=== PATIENT | female | born 1960 | race Caucasian/White ===

== ENCOUNTER → 2020-04-18 09:15 | Outpatient (BNVA) | payer OTHER, SELFPAY | PROVIDERS: PCP Internal Medicine; Referring Provider Internal Medicine; Visit Provider Student in an Organized Health Care Education/Training Program | DX: Z76.89 Persons encountering health services in other specified circumstances (principal) ==

== ENCOUNTER 2020-06-08 11:13 | Day surgery (SDC) | payer OTHER, SELFPAY ==
--- NOTE | 2020-06-07 09:35 | P.CONAN_ITS ---
Documented by User: Rody Govea 06/07/20 09:36 HPI - Anesthesia Eval Consult details Narrative: 60yo F for Caudal Epidural Steroid Injection with catheter PMFSH Past Medical History Medical History ANURADHA positive Anxiety Arthritis Depression Fatty liver Hypertension On beta myae at home Primary osteoarthritis of hands, bilateral Sjogrens syndrome SS-A antibody positive Family History Family History (Updated 03/16/20 @ 10:27 by Dennise Chen Yani) Father No problems noted. Mother Hypertension Sister Breast cancer Blind Surgical History Surgical History History of surgery History of tubal ligation Hx of section Hx of colonoscopy Hx of esophagogastroduodenoscopy Social History Social History Smoking Status: Former smoker Use of substances other than those prescribed or required for medical reasons: No Advance Directives: Yes Advance Directives Information Provided: Yes Advance Directives on File: No Advance Directives Date on File: 06/08/20 Meds Allergies Allergy/AdvReac Type Severity Reaction Status Date / Time amoxicillin [AMOXICILLIN] Allergy Mild GENERALIZED Verified 06/08/20 11:24 SWELLING & ITCHY RASH, swelling, rash,diff. breathing morphine Allergy Unknown dizzy,sick Verified 06/08/20 11:24 Home Medications Medication Instructions Recorded Confirmed Type acetaminophen 650 mg PO Q8H PRN 03/19/20 06/04/20 History gabapentin 300 mg PO TID 03/19/20 06/04/20 History hydrochlorothiazide 25 mg PO DAILY 03/19/20 06/04/20 History lisinopril 20 mg PO DAILY 03/19/20 06/04/20 History omeprazole 20 mg PO DAILY 03/19/20 06/04/20 History trazodone 100 mg PO BEDTIME 03/19/20 06/04/20 History Exam Exam Date and Time: June 07, [id number] Assessment and Plan Assessment Anesthesia Assessment: Chart Reviewed Documented by User: Monique Rivas 06/08/20 11:42 [facility] Past Medical History Medical History ANURADHA positive Anxiety Arthritis Depression Fatty liver Hypertension On beta maye at home Primary osteoarthritis of hands, bilateral Sjogrens syndrome SS-A antibody positive Family History Family History (Updated 03/16/20 @ 10:27 by Dennise Chen Yani) Father No problems noted. Mother Hypertension Sister Breast cancer Blind Surgical History Surgical History History of surgery History of tubal ligation Hx of section Hx of colonoscopy Hx of esophagogastroduodenoscopy Social History Social History Smoking Status: Former smoker Use of substances other than those prescribed or required for medical reasons: No Advance Directives: Yes Advance Directives Information Provided: Yes Advance Directives on File: No Advance Directives Date on File: 06/08/20 Meds Allergies Allergy/AdvReac Type Severity Reaction Status Date / Time amoxicillin [AMOXICILLIN] Allergy Mild GENERALIZED Verified 06/08/20 11:24 SWELLING & ITCHY RASH, swelling, rash,diff. breathing morphine Allergy Unknown dizzy,sick Verified 06/08/20 11:24 Home Medications Medication Instructions Recorded Confirmed Type acetaminophen 650 mg PO Q8H PRN 03/19/20 06/04/20 History gabapentin 300 mg PO TID 03/19/20 06/04/20 History hydrochlorothiazide 25 mg PO DAILY 03/19/20 06/04/20 History lisinopril 20 mg PO DAILY 03/19/20 06/04/20 History omeprazole 20 mg PO DAILY 03/19/20 06/04/20 History trazodone 100 mg PO BEDTIME 03/19/20 06/04/20 History Exam Airway Mallampati Class: II TM Dist: >3cm Neck ROM: Full Loose/Missing/Broken Teeth: No Heart: RRR Lungs: CTA Assessment and Plan Assessment Anesthesia Assessment: Anesthesia Plan Discussed and Chart Reviewed Final Anesthetic Review NPO: Yes ASA Class: II Final Preanesthetic Review: Meds/Allgs Chart Reviewed, Consent Obtained/Reviewed and Anes Risks/Benef Reviewed Patient Risk: Low Procedure Risk: Intermediate Anesthetic Plan Anesthetic Plan: MAC: Disposition: Standard PACU
--- NOTE | ~2020-06-08 | FL_ITS ---
EXAMINATION: XR FLUOROSCOPY WITH IMAGES CLINICAL INFORMATION: Caudal epidural steroid injection COMPARISON: None. TECHNIQUE: Fluoroscopy performed by Dr. Glen Paige. Fluoroscopy time: 0.4 minutes DAP: 25 mGycm2 Images: 3 FINDINGS: Images demonstrate needle placement in the spinal canal of the mid sacrum and epidural contrast injection. FL/FL guidance in OR IMPRESSION: Fluoroscopy guidance for caudal epidural steroid injection.
[2020-06-08 11:33] VITALS: BMI 37.8
[2020-06-08 11:48] VITALS: BP 113/67; PULSE 66; RESP 16; TEMP 36.5; O2SAT 98
[2020-06-08] MEDS: Lactated Ringers 1,000 ML 100 ML IVCONT (11:50)
--- NOTE | 2020-06-08 11:50 | MHC.SHP ---
Pre-Procedural Eval Section A The patient is an INPATIENT: No The History & Physical has been completed within 30 days and I have reviewed it.: No Section B Chief Complaint: lumbar post laminectomy syndrome Details of Present Illness: same as above Relevant Family History (Specify if Yes): No Relevant Social History: None Present Medications: None Medical History: No relevant PMH History of Previous Operations: Relevant previous surgery/procedure and date(s) Allergies: Allergies Allergy/AdvReac Type Severity Reaction Status Date / Time amoxicillin [AMOXICILLIN] Allergy Mild GENERALIZED Verified 06/08/20 11:24 SWELLING & ITCHY RASH, swelling, rash,diff. breathing morphine Allergy Unknown dizzy,sick Verified 06/08/20 11:24 Review of Systems Sugical H&P ROS: Negative: Constitution, Cardiovascular, Respiratory, Neurological, Psychiatric, Hem-Onc, Allergic/Immunologic, Gastrointestinal, Genitourinary, Musculoskeletal, Integumentary, Endocrine and Eyes/Ears/Nose/Throat Exam Surgical H&P Exam: Normal: HEENT, Normal: Heart, Normal: Lungs, Normal: Extremities, Normal: Abdomen, Normal: Skin and Normal: Neurological Plan Diagnosis/Plan: Unchanged I have reviewed the history and physical and performed a pertinent physical examination on my patient. No changes have occurred unless specified.
[2020-06-08 12:56] VITALS: BP 85/46; PULSE 74; RESP 16; TEMP 36.7; O2SAT 96
[2020-06-08 13:11] VITALS: BP 115/71; PULSE 62; RESP 17; TEMP 36.7; O2SAT 98
--- NOTE | 2020-06-08 15:06 | W.PM.OPN ---
Operative Note Operative Note Date of Service: 06/08/20 Narrative: Informed consent was explained to the patient. All questions were explained and answered. The patient was taken inside of the operating room where she was positioned prone on the operating table. Time-out was performed delineating patient's name and date of , correct site, side, the nature of the procedure, patient's allergy, preoperative antibiotic if needed. All operating room staff AND THE PATIENT was participating in OR time-out procedure. Her lower back , UPPER BUTTOCKS and intergluteal crease were prepped with ChloraPrep and draped with sterile towels. Sterilely draped C-arm was brought over the operating field and the picture of the sacral bone and the coccygeal spine superimposing on symphysis pubis in strict midline fashion was demonstrated on the screen. After that the position of the C-arm was changed into lateral. The skin wheal was raised in the projection of the lowest point of the sacral bone strictly on midline. 18 gauge 10 cm Touhy needle was inserted through the skin wheal and advanced to the caudal canal in anterior posterior and lateral views. When needle entered the caudal canal injection of the contrast was performed demonstrating epidural spread of the contrast. After that epidural catheter was advanced through the needle until the resistance was felt. The injections of the contrast into the epidural catheter demonstrated spread of the contrast in the projection of bilateral L5 foramina. After that 27 cc of normal saline was injected into the catheter, following that 5 cc of preservative-free lidocaine 1% mixed with Kenalog was injected into the catheter. The catheter was removed with the needle on mass. Sterile dressing with bacitracin ointment was applied to the needle stick. The patient tolerated procedure well. The patient was taking outside of the operating room to the recovery room. The patient recovered uneventfully. The patient went home without immediate complications.
== END 2020-06-08 13:35 | disposition home or self-care (01) ==
PROVIDERS: PCP Internal Medicine; Visit Provider Anesthesiology
PROC: 3E0R33Z Introduction of Anti-inflammatory into Spinal Canal, Percutaneous Approach (ICD-10-PCS; CPT 62323; principal; 2020-06-08 13:00)
DX: M96.1 Postlaminectomy syndrome, not elsewhere classified (principal); M54.16 Radiculopathy, lumbar region; M35.00 Sjogren syndrome, unspecified; M19.042 Primary osteoarthritis, left hand; M19.041 Primary osteoarthritis, right hand; I10 Essential (primary) hypertension; R76.8 Other specified abnormal immunological findings in serum; Z79.899 Other long term (current) drug therapy; Z88.1 Allergy status to other antibiotic agents; Z88.8 Allergy status to other drugs, medicaments and biological substances; Z87.891 Personal history of nicotine dependence
CPT/HCPCS: 62323; J2250; J2370; J3010; J3300; Q9967

== ENCOUNTER → 2020-08-16 10:31 | Outpatient (BNVA) | payer OTHER, SELFPAY | PROVIDERS: PCP Internal Medicine; Visit Provider Anesthesiology | DX: M96.1 Postlaminectomy syndrome, not elsewhere classified (principal); G89.4 Chronic pain syndrome; Z79.899 Other long term (current) drug therapy | CPT/HCPCS: 99212 ==

== ENCOUNTER 2020-08-24 08:29 | Outpatient (REF) | payer OTHER, SELFPAY ==
[2020-08-24 10:18] LABS: MANUAL DIFF FLAG NO
[2020-08-24 10:40] LABS: Basophils Percent Auto 0.4 % (0-2); Eosinophils Absolute Auto 0.2 X10*3/uL (0.0-0.4); Eosinophils Percent Auto 4.6 % (0-4); Hematocrit 37.8 % (37-47); Hemoglobin 12.2 g/dl (12.0-16.0); Lymphocytes Absolute Auto 1.3 X10*3/uL (1.2-4.9); Lymphocytes Percent Auto 26.5 % (20-40); Mean Corpuscular HGB Conc 32.3 g/dl (31.0-35.0); Mean Corpuscular Hemoglobin 28.4 pg (27.0-33.0); Mean Corpuscular Volume 88.1 fL (80-98); Mean Platelet Volume 11.4 fL (9.4-12.3); Monocytes Absolute Auto 0.5 X10*3/uL (0.1-1.2); Monocytes Percent Auto 9.4 % (2-11); Neutrophils Percent Auto 59.1 % (45-73); Platelet Count 246 X10*3/uL (160-400); Red Blood Count 4.29 X10*6/uL (4.20-5.50); Red Cell Distribution Width 13.6 % (11.0-16.0)
[2020-08-24 11:00] LABS: Alanine Aminotransferase 15 U/L (0-31); Albumin Level 4.2 g/dL (3.5-5.0); Alkaline Phosphatase 62 U/L (39-117); Anion Gap 12 (12-20); Aspartate Amino Transferase 20 U/L (5-31); Bilirubin Total 0.7 mg/dL (0.0-1.0); Blood Urea Nitrogen 25 mg/dL (9-16); Calcium 9.9 mg/dL (8.4-10.2); Carbon Dioxide 28 mmol/L (22-29); Chloride 106 mmol/L (96-108); Cholesterol 182 mg/dL; Estimated Glomerular Filt Rate > 60; Glucose Fasting 97 mg/dL (60-99); HDL Cholesterol 56 mg/dL; LDL Cholesterol Calculated 115 mg/dl; Sodium 141 mmol/L (135-145); Total Protein 7.5 g/dL (6.5-8.0); Triglycerides 55 mg/dL
[2020-08-24 11:37] LABS: Vitamin B12 986 pg/mL (200-900)
[2020-08-29 20:57] LABS: Vitamin D 25-OH, D2 <4 ng/mL; Vitamin D 25-OH, D3 23 ng/mL; Vitamin D 25-OH, Total 23 ng/mL (30-100)
== END 2020-08-24 08:30 | disposition home or self-care (01) ==
LOC: HO.LAB 08:29
PROVIDERS: PCP Internal Medicine; Visit Provider Internal Medicine
DX: D64.9 Anemia, unspecified (principal); R42 Dizziness and giddiness; E55.9 Vitamin D deficiency, unspecified; R53.82 Chronic fatigue, unspecified; I10 Essential (primary) hypertension; E78.5 Hyperlipidemia, unspecified
CPT/HCPCS: 36415; 80053; 80061; 82306; 82607; 82746; 85025

== ENCOUNTER 2020-09-18 06:57 | Outpatient (REF) | payer OTHER, SELFPAY ==
--- NOTE | ~2020-09-18 | XR_ITS ---
EXAMINATION: XR LUMBOSACRAL SPINE WITH OBLIQUES CLINICAL INFORMATION: Spondylosis, lumbar region. COMPARISON: 09/21/2019 TECHNIQUE: AP, both oblique, and lateral views of the lumbar spine. Lateral view of the lumbosacral junction. Lateral flexion-extension views. FINDINGS: There are 5 nonrib-bearing lumbar vertebra. There is mild scoliosis convex left which may be positional in nature. No acute fractures identified. No spondylolysis is seen. There is facet arthropathy present on the right at the L3 through S1 levels and on the left at the L4 through S1 levels. Pedicles are intact. There is narrowing of the L5-S1 disc space with marginal sclerosis. There is a mild grade 1 spondylolisthesis L4-L5. No instability on flexion-extension views is evident. No fusion or widening of the sacroiliac joints is evident. XR/XR lumbar spine 6V w bending IMPRESSION: No acute lumbar spine fracture. No evidence of spondylolysis. Degenerative disc narrowing L5-S1. Mild grade 1 spondylolisthesis L4-L5. Multilevel facet arthropathy.
--- NOTE | ~2020-09-18 | FL_ITS ---
EXAMINATION: XR FLUOROSCOPY WITH IMAGES CLINICAL INFORMATION: Post laminectomy syndrome. COMPARISON: 06/08/2020 TECHNIQUE: Fluoroscopy performed by Dr. Glen Paige Fluoroscopy time: 0.2 minutes DAP: 4.67 Gycm2 Images: 1 FINDINGS: A single lateral film of the sacrum is provided with needle overlying the coccyx. FL/FL guidance in treatment room IMPRESSION: Pain management for post laminectomy syndrome.
== END 2020-09-18 06:58 | disposition home or self-care (01) ==
LOC: HO.RADIR 06:57
PROVIDERS: Visit Provider Anesthesiology
DX: M96.1 Postlaminectomy syndrome, not elsewhere classified (principal); M43.06 Spondylolysis, lumbar region; G89.4 Chronic pain syndrome; Z79.899 Other long term (current) drug therapy
CPT/HCPCS: 62323; 72114; J3300; Q9967

== ENCOUNTER → 2020-10-22 15:43 | Outpatient (BNVA) | payer OTHER, SELFPAY | PROVIDERS: PCP Internal Medicine; Visit Provider Anesthesiology ==

== ENCOUNTER 2020-12-20 09:34 | Outpatient (REF) | payer OTHER, SELFPAY ==
[2020-12-20 10:13] LABS: MANUAL DIFF FLAG NO
[2020-12-20 10:25] LABS: Basophils Percent Auto 0.4 % (0-2); Eosinophils Absolute Auto 0.2 X10*3/uL (0.0-0.4); Eosinophils Percent Auto 4.1 % (0-4); Hematocrit 38.5 % (37-47); Hemoglobin 12.7 g/dl (12.0-16.0); Imm Gran Abs Auto 0.01 X10*3/uL (0.00-0.03); Imm Gran Pct Auto 0.2 % (0.0-0.4); Lymphocytes Absolute Auto 1.4 X10*3/uL (1.2-4.9); Lymphocytes Percent Auto 26.1 % (20-40); Mean Corpuscular Hemoglobin 28.3 pg (27.0-33.0); Mean Corpuscular Volume 85.7 fL (80-98); Mean Platelet Volume 12.1 fL (9.4-12.3); Monocytes Absolute Auto 0.4 X10*3/uL (0.1-1.2); Monocytes Percent Auto 8.2 % (2-11); Neutrophils Absolute Auto 3.3 X10*3/uL (2.0-8.3); Platelet Count 216 X10*3/uL (160-400); Red Blood Count 4.49 X10*6/uL (4.20-5.50); Red Cell Distribution Width 13.2 % (11.0-16.0); White Blood Count 5.4 X10*3/uL (4.8-10.8)
[2020-12-20 11:22] LABS: Alanine Aminotransferase 16 U/L (0-31); Albumin Level 4.2 g/dL (3.5-5.0); Alkaline Phosphatase 62 U/L (39-117); Anion Gap 12 (12-20); Aspartate Amino Transferase 21 U/L (5-31); Bilirubin Total 0.5 mg/dL (0.0-1.0); Blood Urea Nitrogen 23 mg/dL (9-16); Calcium 9.7 mg/dL (8.4-10.2); Carbon Dioxide 26 mmol/L (22-29); Chloride 106 mmol/L (96-108); Cholesterol 181 mg/dL; Estimated Glomerular Filt Rate > 60; Glucose Fasting 96 mg/dL (60-99); HDL Cholesterol 51 mg/dL; LDL Cholesterol Calculated 120 mg/dl; Potassium 4.4 mmol/L (3.3-5.1); Sodium 140 mmol/L (135-145); Total Protein 7.5 g/dL (6.5-8.0); Triglycerides 54 mg/dL
[2020-12-20 11:31] LABS: Thyroid Stimulating Hormone 0.58 uIU/mL (0.32-4.0)
[2020-12-21 13:51] LABS: Antibody to SS-A Antigen >8.0 POS AI (<1.0 NEG); Antibody to SS-B Antigen <1.0 NEG AI (<1.0 NEG); Scleroderma 70 Antibody <1.0 NEG AI (<1.0 NEG)
[2020-12-21 13:55] LABS: Anti-Centromere B Antibodies 2.8 POS AI (<1.0 NEG)
[2020-12-28 12:55] LABS: Vitamin D 25-OH, D2 <4 ng/mL; Vitamin D 25-OH, D3 28 ng/mL; Vitamin D 25-OH, Total 28 ng/mL (30-100)
== END 2020-12-20 09:35 | disposition home or self-care (01) ==
LOC: HO.LAB 09:34
PROVIDERS: PCP Internal Medicine; Visit Provider Internal Medicine
DX: E55.9 Vitamin D deficiency, unspecified (principal); E66.01 Morbid (severe) obesity due to excess calories; M35.00 Sjogren syndrome, unspecified; E78.5 Hyperlipidemia, unspecified; I10 Essential (primary) hypertension; D64.9 Anemia, unspecified
CPT/HCPCS: 36415; 80053; 80061; 82306; 84443; 85025; 86038; 86235

== ENCOUNTER → 2020-12-28 10:20 | Outpatient (BNVA) | payer OTHER, SELFPAY | PROVIDERS: PCP Internal Medicine; Visit Provider Student in an Organized Health Care Education/Training Program | DX: R76.8 Other specified abnormal immunological findings in serum (principal); M19.042 Primary osteoarthritis, left hand; M19.041 Primary osteoarthritis, right hand; Z87.891 Personal history of nicotine dependence | CPT/HCPCS: 99212 ==

== ENCOUNTER → 2021-01-16 08:51 | Outpatient (BNVA) | payer OTHER, SELFPAY | PROVIDERS: PCP Internal Medicine; Referring Provider Internal Medicine; Visit Provider Physician Assistant Surgical ==

== ENCOUNTER → 2021-01-18 08:16 | Outpatient (BNVA) | payer OTHER, SELFPAY | PROVIDERS: PCP Internal Medicine; Visit Provider Surgery ==

== ENCOUNTER → 2021-02-06 08:29 | Outpatient (REF) | payer OTHER, SELFPAY ==
--- NOTE | ~2021-02-06 | XR_ITS ---
EXAMINATION: XR CHEST CLINICAL INFORMATION: Obesity COMPARISON: Chest x-ray October 26, 2017 TECHNIQUE: 2 views of the chest were obtained. FINDINGS: Cardiac silhouette is normal in size. The lungs are well aerated. There is no lobar consolidation. No pleural effusion or pneumothorax. No acute osseous abnormality. XR/XR chest 2V IMPRESSION: No acute pulmonary pathology.
--- NOTE | 2021-02-06 09:11 | ECG_ITS ---
Test Reason : obesity Blood Pressure : / mmHG Vent. Rate : 062 BPM Atrial Rate : 062 BPM P-R Int : 158 ms QRS Dur : 094 ms QT Int : 406 ms P-R-T Axes : 045 016 003 degrees QTc Int : 412 ms Normal sinus rhythm Normal ECG When compared with ECG of 26-OCT-2017 12:47, No significant change was found Referred By: Thuan Minor Electronically Signed By:DAMIEN AVILES
[2021-02-07 11:58] LABS: H Pylori Breath Test Positive (Negative)
== END ==
LOC: HO.CARD 08:29
PROVIDERS: Absent Provider Surgery; PCP Internal Medicine; Referring Provider Internal Medicine; Visit Provider Physician Assistant
DX: Z01.818 Encounter for other preprocedural examination (principal); E66.9 Obesity, unspecified; Z68.38 Body mass index [BMI] 38.0-38.9, adult; I10 Essential (primary) hypertension
CPT/HCPCS: 36415; 71046; 83013; 93005; 99211

== ENCOUNTER → 2021-02-12 08:05 | Outpatient (BNVA) | payer OTHER, SELFPAY | PROVIDERS: PCP Internal Medicine; Visit Provider Dietitian, Registered | DX: E66.9 Obesity, unspecified (principal) | CPT/HCPCS: 97802 ==

== ENCOUNTER → 2021-02-20 08:04 | Outpatient (BNVA) | payer OTHER, SELFPAY | PROVIDERS: PCP Internal Medicine; Visit Provider Surgery ==

== ENCOUNTER 2021-02-25 08:27 | Outpatient (REF) | payer OTHER, SELFPAY ==
--- NOTE | ~2021-02-25 | US_ITS ---
EXAMINATION: US COMPLETE ABDOMEN WITH LIVER ELASTOGRAPHY CLINICAL INFORMATION: Obesity unspecified. COMPARISON: Abdominal ultrasound done on 12/14/2012. TECHNIQUE: Real-time imaging of the abdominal viscera. Noninvasive ultrasound liver fibrosis assessment is performed using Catalina ElastPQ point quantification shear wave elastography (pSWE) with a C5-2 MHz transducer. Multiple elastography samples are obtained. FINDINGS: PANCREAS: The visualized pancreatic head and body are normal in appearance. The remainder of the pancreas is obscured from visualization by the overlying bowel gas. ABDOMINAL AORTA: The proximal, middle, and distal aortic segments are normal in caliber. INFERIOR VENA CAVA: Visualized portions are normal. LIVER: Mild diffuse increased echotexture is present throughout the entire liver, consistent disease.. No focal lesion or intrahepatic biliary duct dilatation. The right lobe measures 14.4 cm in length. The left lobe measures 9.5 cm in length. Portal flow is towards the liver (hepatopetal). Shear wave liver elastography median stiffness is 1.88 m/s (reference: normal median stiffness is 1.3 m/s or less). IQR/median stiffness to assess sampling precision is 0.22 (reference: good quality data set is IQR/median stiffness of 0.15 or less). GALLBLADDER: Normal. The gallbladder is physiologically distended without evidence of stones, sludge, polyps, wall thickening or pericholecystic fluid. COMMON BILE DUCT: Normal in caliber measuring 0.4 cm in diameter. RIGHT KIDNEY: Normal. No hydronephrosis. No renal calculi or focal parenchymal lesions. The kidney measures 10.3 cm in maximum dimension. LEFT KIDNEY: There is a 1.46 x 1.4 x 1.4 cm simple appearing cortical renal cyst present at the mid lateral cortex. The smaller approximately 1 cm similar-appearing cortical cyst noted at the superior pole.. No hydronephrosis. No renal calculi or focal parenchymal lesions. The kidney measures 10.4 cm in maximum dimension. SPLEEN: Normal. The spleen measures 8.3 cm in maximum dimension. FREE FLUID: None. US/US abdomen comp w elastography IMPRESSION: 1. The liver shows mild diffuse heterogeneous abnormal increased echotexture, consistent with diffuse liver disease without any superimposed focal liver lesion. 2. Liver elastography: Measurements are suggestive of compensated advanced chronic liver disease but need further test for confirmation. REFERENCE: Society of Radiologists in Ultrasound Liver Stiffness Thresholds (2020): LIVER STIFFNESS THRESHOLDS: *Liver Stiffness equal or less than 1.3 m/s: High probability of being normal. *Liver Stiffness less than 1.7 m/s: In the absence of other known clinical signs, rules out compensated advanced chronic liver disease. *Liver Stiffness 1.7-2.1 m/s: Suggestive of compensated advanced chronic liver disease but need further test for confirmation. *Liver Stiffness over 2.1 m/s: Rules in compensated advanced chronic liver disease. *Liver Stiffness over 2.4 m/s: Suggestive of clinically significant portal hypertension. QUALITY OF DATA SET: *IQR/Median value equal or less than 0.15 implies a quality data set. *IQR/Median value over 0.15 implies a poor quality data set. SIGNIFICANT CHANGE FROM PRIOR EXAM: Significant change if liver stiffness measurement is 10% or greater from prior exam. OTHER CONSIDERATIONS: The stage of liver fibrosis may be overestimated in the setting of acute hepatitis, liver inflammation, elevated liver function tests, hepatic vascular congestion, obstructive cholestasis, non-fasting state, and infiltrative diseases such as amyloidosis and lymphoma. In some patients with NAFLD, the liver stiffness thresholds for compensated advanced chronic liver disease may be lower. In causes other than viral hepatitis and NAFLD, liver stiffness thresholds are not well established.
--- NOTE | ~2021-02-25 | FL_ITS ---
EXAMINATION: XR GI SERIES CLINICAL INFORMATION: Obesity. COMPARISON: None. TECHNIQUE: Routine upper GI air-contrast study was performed. FINDINGS: Following oral administration of thick barium and effervescent granules, there is normal propagation of bolus from the oral cavity through the pharynx and esophagus and into the stomach without any evidence of obstruction, narrowing or stricture. On placing patient supine and prone lying, the course, caliber and peristalsis of the stomach, duodenal bulb and the sweep are normal. The mucosal pattern of the stomach and the duodenum is normal. There is mild gastroesophageal reflux without hiatal hernia. FLUOROSCOPY TIME: 1.4 minutes. DOSE AREA PRODUCT: 19.589 uGy-m2 (microgray-meter squared). FL/FL upper GI series IMPRESSION: Mild gastroesophageal reflux without hiatal hernia. The rest of the upper GI exam is unremarkable.
[2021-02-25 08:47] LABS: MANUAL DIFF FLAG NO
[2021-02-25 09:17] LABS: Basophils Percent Auto 0.4 % (0-2); Eosinophils Absolute Auto 0.3 X10*3/uL (0.0-0.4); Eosinophils Percent Auto 5.7 % (0-4); Hematocrit 36.6 % (37-47); Hemoglobin 12.2 g/dl (12.0-16.0); Imm Gran Abs Auto 0.01 X10*3/uL (0.00-0.03); Imm Gran Pct Auto 0.2 % (0.0-0.4); Lymphocytes Absolute Auto 1.1 X10*3/uL (1.2-4.9); Lymphocytes Percent Auto 21.6 % (20-40); Mean Corpuscular HGB Conc 33.3 g/dl (31.0-35.0); Mean Corpuscular Hemoglobin 28.2 pg (27.0-33.0); Mean Corpuscular Volume 84.7 fL (80-98); Mean Platelet Volume 11.5 fL (9.4-12.3); Monocytes Absolute Auto 0.6 X10*3/uL (0.1-1.2); Monocytes Percent Auto 11.7 % (2-11); Neutrophils Absolute Auto 3.2 X10*3/uL (2.0-8.3); Neutrophils Percent Auto 60.4 % (45-73); Platelet Count 229 X10*3/uL (160-400); Red Blood Count 4.32 X10*6/uL (4.20-5.50); Red Cell Distribution Width 13.1 % (11.0-16.0); White Blood Count 5.3 X10*3/uL (4.8-10.8)
[2021-02-25 09:28] LABS: Estimated Average Glucose 105 mg/dL; Hemoglobin A1C 113.4814 umol/L; Hemoglobin A1c % 5.3 %
[2021-02-25 09:35] LABS: Alanine Aminotransferase 15 U/L (0-31); Albumin Level 4.2 g/dL (3.5-5.0); Alkaline Phosphatase 55 U/L (39-117); Anion Gap 12 (12-20); Aspartate Amino Transferase 22 U/L (5-31); Bilirubin Total 0.5 mg/dL (0.0-1.0); Blood Urea Nitrogen 43 mg/dL (9-16); C Reactive Protein 0.59 mg/dL (< or = 0.50); Calcium 10.1 mg/dL (8.4-10.2); Carbon Dioxide 29 mmol/L (22-29); Chloride 104 mmol/L (96-108); Cholesterol 159 mg/dL; Estimated Glomerular Filt Rate 31; Glucose Random 126 mg/dL (60-115); HDL Cholesterol 39 mg/dL; Iron 47 mcg/dL (30-160); LDL Cholesterol Calculated 109 mg/dl; Percent Iron Saturation 12 % (15-50); Potassium 3.7 mmol/L (3.3-5.1); Sodium 141 mmol/L (135-145); Total Iron Binding Capacity 381 mcg/dL (228-428); Total Protein 7.4 g/dL (6.5-8.0); Triglycerides 58 mg/dL; Unsaturated Iron Binding 334 ug/dL
[2021-02-25 09:57] LABS: Ferritin 51 ng/mL (10-250)
[2021-02-25 10:16] LABS: Folate 12.2 ng/mL (> or = 4.0); Vitamin B12 943 pg/mL (200-900)
[2021-02-26 14:31] LABS: Calcium (PTHI) 9.9 mg/dL (8.6-10.4); PTHI 99 pg/mL (14-64)
[2021-02-28 07:32] LABS: Zinc 73 mcg/dL (60-130)
[2021-03-01 17:33] LABS: Vitamin A 44 mcg/dL (38-98)
[2021-03-02 11:10] LABS: Vitamin B1 12 nmol/L (8-30)
== END 2021-02-25 08:28 | disposition home or self-care (01) ==
LOC: HO.US 08:27
PROVIDERS: PCP Internal Medicine; Visit Provider Surgery
DX: E66.9 Obesity, unspecified (principal); I10 Essential (primary) hypertension; Z68.38 Body mass index [BMI] 38.0-38.9, adult
CPT/HCPCS: 36415; 74240; 76705; 76981; 80053; 80061; 82306; 82607; 82728; 82746; 83036; 83540; 83970; 84425; 84443; 84590; 84630; 85025; 86140

== ENCOUNTER 2021-03-01 08:31 | Outpatient (REF) | payer OTHER, SELFPAY ==
[2021-03-01 09:12] LABS: Anion Gap 11 (12-20); Blood Urea Nitrogen 32 mg/dL (9-16); Calcium 9.6 mg/dL (8.4-10.2); Carbon Dioxide 30 mmol/L (22-29); Chloride 106 mmol/L (96-108); Estimated Glomerular Filt Rate 52; Glucose Random 117 mg/dL (60-115); Potassium 3.6 mmol/L (3.3-5.1); Sodium 143 mmol/L (135-145)
[2021-03-01 10:04] LABS: Insulin 9 uU/mL (2-29)
== END 2021-03-01 08:32 | disposition home or self-care (01) ==
LOC: HO.LAB 08:31
PROVIDERS: PCP Internal Medicine; Visit Provider Surgery
DX: R79.89 Other specified abnormal findings of blood chemistry (principal)
CPT/HCPCS: 36415; 80048; 83525

== ENCOUNTER → 2021-03-14 08:00 | Outpatient (BNVA) | payer OTHER, SELFPAY | PROVIDERS: PCP Internal Medicine; Referring Provider Surgery; Visit Provider Dietitian, Registered ==

== ENCOUNTER → 2021-03-22 08:08 | Outpatient (BNVA) | payer OTHER, SELFPAY | PROVIDERS: PCP Internal Medicine; Visit Provider Surgery ==

== ENCOUNTER → 2021-03-26 09:06 | Outpatient (BNVA) | payer OTHER, SELFPAY | PROVIDERS: PCP Internal Medicine; Visit Provider Surgery | DX: Z11.0 Encounter for screening for intestinal infectious diseases (principal) | CPT/HCPCS: 99211 ==

== ENCOUNTER 2021-03-27 15:57 | Outpatient (REF) | payer OTHER, SELFPAY ==
[2021-03-29 07:19] LABS: H Pylori Breath Test Negative (Negative)
== END 2021-03-27 15:58 | disposition home or self-care (01) ==
LOC: HO.LNP 15:57
PROVIDERS: Visit Provider Physician Assistant Surgical
DX: Z01.818 Encounter for other preprocedural examination (principal); Z11.0 Encounter for screening for intestinal infectious diseases
CPT/HCPCS: 83013

== ENCOUNTER → 2021-04-08 08:37 | Outpatient (BNVA) | payer OTHER, SELFPAY | PROVIDERS: PCP Internal Medicine; Referring Provider Internal Medicine; Visit Provider Dietitian, Registered ==

== ENCOUNTER → 2021-04-16 13:02 | Outpatient (BNVA) | payer OTHER, SELFPAY | PROVIDERS: PCP Internal Medicine; Referring Provider Internal Medicine; Visit Provider Dietitian, Registered | DX: E66.9 Obesity, unspecified (principal); Z68.34 Body mass index [BMI] 34.0-34.9, adult | CPT/HCPCS: 97803 ==

== ENCOUNTER → 2021-04-19 08:22 | Outpatient (BNVA) | payer OTHER, SELFPAY | PROVIDERS: PCP Internal Medicine; Visit Provider Surgery ==

== ENCOUNTER 2021-05-02 11:53 | Outpatient (REF) | payer OTHER, SELFPAY ==
[2021-05-02 13:50] LABS: Binax Internal Control QC Valid; Binax Lot number: 9864; Binax Now Covid-19 Ag Negative (Negative)
== END 2021-05-02 11:54 | disposition home or self-care (01) ==
LOC: HO.LAB 11:53
PROVIDERS: Visit Provider Internal Medicine
DX: Z20.822 Contact with and (suspected) exposure to COVID-19 (principal)
CPT/HCPCS: 36415; C9803

== ENCOUNTER → 2021-05-14 08:02 | Outpatient (BNVA) | payer OTHER, SELFPAY | PROVIDERS: PCP Internal Medicine; Visit Provider Surgery ==

== ENCOUNTER → 2021-05-17 13:01 | Outpatient (BNVA) | payer OTHER, SELFPAY | PROVIDERS: PCP Internal Medicine; Referring Provider Internal Medicine; Visit Provider Physician Assistant ==

== ENCOUNTER 2021-05-22 06:17 | Inpatient (IN) | payer OTHER, SELFPAY ==
[2021-05-15 08:40] LABS: MANUAL DIFF FLAG NO
[2021-05-15 08:49] LABS: Basophils Percent Auto 0.2 % (0-2); Eosinophils Absolute Auto 0.3 X10*3/uL (0.0-0.4); Eosinophils Percent Auto 5.6 % (0-4); Hematocrit 36.9 % (37.0-47.0); Imm Gran Abs Auto 0.01 X10*3/uL (0.00-0.03); Imm Gran Pct Auto 0.2 % (0.0-0.4); Lymphocytes Absolute Auto 1.2 X10*3/uL (1.2-4.9); Lymphocytes Percent Auto 24.7 % (20-40); Mean Corpuscular HGB Conc 32.5 g/dl (31.0-35.0); Mean Corpuscular Hemoglobin 28.6 pg (27.0-33.0); Mean Corpuscular Volume 88.1 fL (80.0-98.0); Mean Platelet Volume 11.8 fL (9.4-12.3); Monocytes Absolute Auto 0.4 X10*3/uL (0.1-1.2); Neutrophils Absolute Auto 2.9 x10*3/uL (2.0-8.3); Neutrophils Percent Auto 61.3 % (45-73); Platelet Count 202 X10*3/uL (160-400); Red Blood Count 4.19 X10*6/uL (4.20-5.50); Red Cell Distribution Width 14.1 % (11.0-16.0); White Blood Count 4.7 X10*3/uL (4.8-10.8)
[2021-05-15 08:56] LABS: Prothrombin Time 11.5 SEC (9.9-13.0)
[2021-05-15 08:58] LABS: Partial Thromboplastin Time 26.2 SEC (24.1-38.0)
[2021-05-15 09:04] LABS: Estimated Average Glucose 100 mg/dL; Hemoglobin A1c % 5.1 %
[2021-05-15 09:13] LABS: Alanine Aminotransferase 16 U/L (0-31); Albumin Level 4.1 g/dL (3.5-5.0); Alkaline Phosphatase 50 U/L (39-117); Anion Gap 12 (12-20); Aspartate Amino Transferase 22 U/L (5-31); Bilirubin Total 0.6 mg/dL (0.0-1.0); Blood Urea Nitrogen 18 mg/dL (9-16); C Reactive Protein 0.25 mg/dL (< or = 0.50); Calcium 10.3 mg/dL (8.4-10.2); Carbon Dioxide 27 mmol/L (22-29); Chloride 109 mmol/L (96-108); Cholesterol 168 mg/dL; Estimated Glomerular Filt Rate > 60; Glucose Random 107 mg/dL (60-115); HDL Cholesterol 43 mg/dL; LDL Cholesterol Calculated 110 mg/dl; Sodium 144 mmol/L (135-145); Total Protein 7.5 g/dL (6.5-8.0); Triglycerides 79 mg/dL
[2021-05-15 09:36] LABS: Insulin 9 uU/mL (2-29); TSH reflex Free T4 1.62 uIU/mL (0.32-4.0)
[2021-05-15 10:36] VITALS: BMI 33.1
[2021-05-16 16:16] LABS: Calcium (PTHI) 10.3 mg/dL (8.6-10.4); PTHI 53 pg/mL (14-64)
[2021-05-17 14:57] LABS: Calcium, Ionized 5.1 mg/dL (4.8-5.6)
--- NOTE | 2021-05-18 23:06 | MHC.SHP ---
Pre-Procedural Eval Section A Date of Service: 05/18/21 The patient is an INPATIENT: Yes The History & Physical has been completed within 30 days and I have reviewed it.: No Section B Chief Complaint: obesity Relevant Family History (Specify if Yes): No Relevant Social History: None Present Medications: None Medical History: No relevant PMH History of Previous Operations: No relevant previous surgery Allergies: Allergies Allergy/AdvReac Type Severity Reaction Status Date / Time morphine Allergy Intermediate dizzy,sick Verified 05/14/21 10:23 amoxicillin [AMOXICILLIN] Allergy Mild GENERALIZED Verified 05/14/21 10:23 SWELLING & ITCHY RASH, swelling, rash,diff. breathing Review of Systems Sugical H&P ROS: Negative: Constitution, Cardiovascular, Respiratory, Neurological, Psychiatric, Hem-Onc, Allergic/Immunologic, Gastrointestinal, Genitourinary, Musculoskeletal, Integumentary, Endocrine and Eyes/Ears/Nose/Throat Exam Surgical H&P Exam: Normal: HEENT, Normal: Heart, Normal: Lungs, Normal: Extremities, Normal: Abdomen, Normal: Skin and Normal: Neurological Plan Diagnosis/Plan: Unchanged I have reviewed the history and physical and performed a pertinent physical examination on my patient. No changes have occurred unless specified.
[2021-05-20 16:01] LABS: Vitamin D 25-OH, D2 5 ng/mL; Vitamin D 25-OH, D3 25 ng/mL; Vitamin D 25-OH, Total 30 ng/mL (30-100)
--- NOTE | 2021-05-21 10:27 | P.CONAN_ITS ---
Documented by User: Rody Govea NP 05/21/21 10:30 HPI - Anesthesia Eval Consult details Narrative: 61yo F for Gastrectomy Sleeve, EGD, poss diaphragmatic hernia, poss ventral hernia, poss open PMFSH Active Problems Active Problems: All Active Problems (Updated 05/14/21 @ 10:15 by Thuan Minor MD) BMI 32.0-32.9,adult (Acute) Hyperparathyroidism (Acute) BMI 34.0-34.9,adult (Acute) Elevated serum creatinine (Acute) Nausea (Acute) BMI 36.0-36.9,adult (Acute) H. pylori infection (Acute) BMI 38.0-38.9,adult (Acute) Obesity (Acute) Moderate recurrent major depression (Acute) Morbid obesity (Acute) Right shoulder pain (Acute) Acquired spondylolysis of lumbar spine (Acute) Dizziness (Acute) Chronic fatigue (Acute) Essential hypertension (Acute) Chronic pain syndrome (Acute) Postlaminectomy syndrome of lumbar region (Acute) Sjogrens syndrome (Acute) Primary osteoarthritis of hands, bilateral (Acute) ANURADHA positive (Acute) SS-A antibody positive (Acute) Past Medical History Medical History Acquired spondylolysis of lumbar spine ANURADHA positive Anxiety Arthritis Chronic fatigue Chronic pain syndrome Depression Dizziness Essential hypertension Fatty liver Hyperparathyroidism Hypertension Moderate recurrent major depression Morbid obesity On beta maye at home Postlaminectomy syndrome of lumbar region Primary osteoarthritis of hands, bilateral Right shoulder pain Sjogrens syndrome SS-A antibody positive Family History Family History Father No problems noted. Mother Hypertension Sister Breast cancer Blind Family/Other Mental health disorder Substance use disorder Surgical History Surgical History History of surgery History of tubal ligation Hx of section Hx of colonoscopy Hx of esophagogastroduodenoscopy Social History Social History Housing: Apartment Are you a primary care director to a significant other at home: No Do you presently have visiting nurse or other home services: No Alcohol intake: current Alcohol intake frequency: does not drink Patient Tobacco Use Status: Former Tobacco user Quit Date: 1985 Tobacco use type: Cigarette e-Cigarette/Vaping Use: Never Used Second Hand Smoke Exposure: No Use of substances other than those prescribed or required for medical reasons: No Have you been hit, kicked, punched, or otherwise hurt by someone within the past year? If so, by whom?: No Are you DNR?: No Advance Directives: No Advance Directives on File: Yes Advance Directives Date on File: 06/08/20 Recently lost weight without trying: No service: No Current occupational status: disabled Meds Allergies Allergy/AdvReac Type Severity Reaction Status Date / Time morphine Allergy Intermediate dizzy,sick Verified 05/14/21 10:23 amoxicillin [AMOXICILLIN] Allergy Mild GENERALIZED Verified 05/14/21 10:23 SWELLING & ITCHY RASH, swelling, rash,diff. breathing Exam Exam Date and Time: May 21, 2021 1027 Height,Weight and Vital Signs: Height 5 ft 4 in Weight 87.543 kg Pertinent Lab Results Pertinent Lab Results: Laboratory Tests 05/15/21 05/15/21 05/15/21 08:30 08:38 08:38 WBC 4.7 L RBC 4.19 L Hgb 12.0 Hct 36.9 L MCV 88.1 MCH 28.6 MCHC 32.5 RDW 14.1 Plt Count 202 MPV 11.8 Immature Gran % (Auto) 0.2 Neut % (Auto) 61.3 Lymph % (Auto) 24.7 Dickenson % (Auto) 8.0 Eos % (Auto) 5.6 H Baso % (Auto) 0.2 Lymph # (Auto) 1.2 Dickenson # (Auto) 0.4 Eos # (Auto) 0.3 Baso # (Auto) 0.0 Abs Immat Gran (auto) 0.01 Absolute Neuts (auto) 2.9 Absolute Nucleated RBC 0.000 Nucleated RBC % (auto) 0.0 PT 11.5 INR 1.0 APTT 26.2 Sodium Potassium Chloride Carbon Dioxide Anion Gap BUN Creatinine Estim Creat Clear Calc Estimated GFR Random Glucose Estimat Average Glucose Hemoglobin A1c % Insulin Level Calcium Ionized Calcium Total Bilirubin AST ALT Alkaline Phosphatase C-Reactive Protein Total Protein Albumin Triglycerides Cholesterol LDL Cholesterol, Calc HDL Cholesterol 25-OH Vitamin D Total 25-Hydroxy Vitamin D2 25-Hydroxy Vitamin D3 TSH PTH Intact Calcium (PTH Intact) Blood Type A Positive Antibody Screen NEGATIVE 05/15/21 05/15/2122 08:38 08:38 08:38 WBC RBC Hgb Hct MCV MCH MCHC RDW Plt Count MPV Immature Gran % (Auto) Neut % (Auto) Lymph % (Auto) Dickenson % (Auto) Eos % (Auto) Baso % (Auto) Lymph # (Auto) Dickenson # (Auto) Eos # (Auto) Baso # (Auto) Abs Immat Gran (auto) Absolute Neuts (auto) Absolute Nucleated RBC Nucleated RBC % (auto) PT INR APTT Sodium 144 Potassium 4.0 Chloride 109 H Carbon Dioxide 27 Anion Gap 12 BUN 18 H Creatinine 0.86 Estim Creat Clear Calc TNP Estimated GFR > 60 Random Glucose 107 Estimat Average Glucose 100 Hemoglobin A1c % 5.1 Insulin Level 9 Calcium 10.3 H D Ionized Calcium 5.1 Total Bilirubin 0.6 AST 22 ALT 16 Alkaline Phosphatase 50 C-Reactive Protein 0.25 Total Protein 7.5 Albumin 4.1 Triglycerides 79 Cholesterol 168 LDL Cholesterol, Calc 110 HDL Cholesterol 43 25-OH Vitamin D Total 25-Hydroxy Vitamin D2 25-Hydroxy Vitamin D3 TSH 1.62 PTH Intact Calcium (PTH Intact) Blood Type Antibody Screen 05/15/21 08:38 WBC RBC Hgb Hct MCV MCH MCHC RDW Plt Count MPV Immature Gran % (Auto) Neut % (Auto) Lymph % (Auto) Dickenson % (Auto) Eos % (Auto) Baso % (Auto) Lymph # (Auto) Dickenson # (Auto) Eos # (Auto) Baso # (Auto) Abs Immat Gran (auto) Absolute Neuts (auto) Absolute Nucleated RBC Nucleated RBC % (auto) PT INR APTT Sodium Potassium Chloride Carbon Dioxide Anion Gap BUN Creatinine Estim Creat Clear Calc Estimated GFR Random Glucose Estimat Average Glucose Hemoglobin A1c % Insulin Level Calcium Ionized Calcium Total Bilirubin AST ALT Alkaline Phosphatase C-Reactive Protein Total Protein Albumin Triglycerides Cholesterol LDL Cholesterol, Calc HDL Cholesterol 25-OH Vitamin D Total 30 25-Hydroxy Vitamin D2 5 25-Hydroxy Vitamin D3 25 TSH PTH Intact 53 Calcium (PTH Intact) 10.3 Blood Type Antibody Screen Narrative Narrative: EKG 03/2021 Vent. Rate : 062 BPM ? ? Atrial Rate : 062 BPM ?? P-R Int : 158 ms? QRS Dur : 094 ms ? ? QT Int : 406 ms ? ? ? P-R-T Axes : 045 016 003 degrees ?? QTc Int : 412 ms ? Normal sinus rhythm Normal ECG When compared with ECG of 26-OCT-2017 12:47, No significant change was found Assessment and Plan Assessment Anesthesia Assessment: Chart Reviewed Documented by User: Debi Craig MD 05/22/21 10:54 PMFSH Past Medical History Medical History Acquired spondylolysis of lumbar spine ANURADHA positive Anxiety Arthritis Chronic fatigue Chronic pain syndrome Depression Dizziness Essential hypertension Fatty liver Hyperparathyroidism Hypertension Moderate recurrent major depression Morbid obesity On beta maye at home Postlaminectomy syndrome of lumbar region Primary osteoarthritis of hands, bilateral Right shoulder pain Sjogrens syndrome SS-A antibody positive Family History Family History Father No problems noted. Mother Hypertension Sister Breast cancer Blind Family/Other Mental health disorder Substance use disorder Family history of problems with anesthesia: No Surgical History Surgical History History of surgery History of tubal ligation Hx of section Hx of colonoscopy Hx of esophagogastroduodenoscopy History of Problems with Anesthesia: No Social History Social History Housing: Apartment Are you a primary care director to a significant other at home: No Do you presently have visiting nurse or other home services: No Alcohol intake: current Alcohol intake frequency: does not drink Patient Tobacco Use Status: Former Tobacco user Quit Date: 1984 Tobacco use type: Cigarette e-Cigarette/Vaping Use: Never Used Second Hand Smoke Exposure: No Use of substances other than those prescribed or required for medical reasons: No Have you been hit, kicked, punched, or otherwise hurt by someone within the past year? If so, by whom?: No Are you DNR?: No Advance Directives: No Advance Directives on File: Yes Advance Directives Date on File: 06/08/20 Recently lost weight without trying: No service: No Current occupational status: disabled Meds Allergies Allergy/AdvReac Type Severity Reaction Status Date / Time morphine Allergy Intermediate dizzy,sick Verified 05/14/21 10:23 amoxicillin [AMOXICILLIN] Allergy Mild GENERALIZED Verified 05/14/21 10:23 SWELLING & ITCHY RASH, swelling, rash,diff. breathing Exam Height,Weight and Vital Signs: Height 5 ft 4 in Weight 87.543 kg Vital Signs Temp Pulse Resp BP Pulse Ox 99.1 F 67 16 98/58 L 97 05/22/21 06:37 05/22/21 06:37 05/22/21 06:37 05/22/21 06:37 05/22/21 06:37 Pertinent Lab Results Pertinent Lab Results: Laboratory Tests 05/15/21 05/15/21 05/15/21 08:30 08:38 08:38 WBC 4.7 L RBC 4.19 L Hgb 12.0 Hct 36.9 L MCV 88.1 MCH 28.6 MCHC 32.5 RDW 14.1 Plt Count 202 MPV 11.8 Immature Gran % (Auto) 0.2 Neut % (Auto) 61.3 Lymph % (Auto) 24.7 Dickenson % (Auto) 8.0 Eos % (Auto) 5.6 H Baso % (Auto) 0.2 Lymph # (Auto) 1.2 Dickenson # (Auto) 0.4 Eos # (Auto) 0.3 Baso # (Auto) 0.0 Abs Immat Gran (auto) 0.01 Absolute Neuts (auto) 2.9 Absolute Nucleated RBC 0.000 Nucleated RBC % (auto) 0.0 PT 11.5 INR 1.0 APTT 26.2 Sodium Potassium Chloride Carbon Dioxide Anion Gap BUN Creatinine Estim Creat Clear Calc Estimated GFR Random Glucose Estimat Average Glucose Hemoglobin A1c % Insulin Level Calcium Ionized Calcium Total Bilirubin AST ALT Alkaline Phosphatase C-Reactive Protein Total Protein Albumin Triglycerides Cholesterol LDL Cholesterol, Calc HDL Cholesterol 25-OH Vitamin D Total 25-Hydroxy Vitamin D2 25-Hydroxy Vitamin D3 TSH PTH Intact Calcium (PTH Intact) Blood Type A Positive Antibody Screen NEGATIVE 05/15/21 05/15/21 05/15/21 08:38 08:38 08:38 WBC RBC Hgb Hct MCV MCH MCHC RDW Plt Count MPV Immature Gran % (Auto) Neut % (Auto) Lymph % (Auto) Dickenson % (Auto) Eos % (Auto) Baso % (Auto) Lymph # (Auto) Dickenson # (Auto) Eos # (Auto) Baso # (Auto) Abs Immat Gran (auto) Absolute Neuts (auto) Absolute Nucleated RBC Nucleated RBC % (auto) PT INR APTT Sodium 144 Potassium 4.0 Chloride 109 H Carbon Dioxide 27 Anion Gap 12 BUN 18 H Creatinine 0.86 Estim Creat Clear Calc TNP Estimated GFR > 60 Random Glucose 107 Estimat Average Glucose 100 Hemoglobin A1c % 5.1 Insulin Level 9 Calcium 10.3 H D Ionized Calcium 5.1 Total Bilirubin 0.6 AST 22 ALT 16 Alkaline Phosphatase 50 C-Reactive Protein 0.25 Total Protein 7.5 Albumin 4.1 Triglycerides 79 Cholesterol 168 LDL Cholesterol, Calc 110 HDL Cholesterol 43 25-OH Vitamin D Total 25-Hydroxy Vitamin D2 25-Hydroxy Vitamin D3 TSH 1.62 PTH Intact Calcium (PTH Intact) Blood Type Antibody Screen 05/15/21 08:38 WBC RBC Hgb Hct MCV MCH MCHC RDW Plt Count MPV Immature Gran % (Auto) Neut % (Auto) Lymph % (Auto) Dickenson % (Auto) Eos % (Auto) Baso % (Auto) Lymph # (Auto) Dickenson # (Auto) Eos # (Auto) Baso # (Auto) Abs Immat Gran (auto) Absolute Neuts (auto) Absolute Nucleated RBC Nucleated RBC % (auto) PT INR APTT Sodium Potassium Chloride Carbon Dioxide Anion Gap BUN Creatinine Estim Creat Clear Calc Estimated GFR Random Glucose Estimat Average Glucose Hemoglobin A1c % Insulin Level Calcium Ionized Calcium Total Bilirubin AST ALT Alkaline Phosphatase C-Reactive Protein Total Protein Albumin Triglycerides Cholesterol LDL Cholesterol, Calc HDL Cholesterol 25-OH Vitamin D Total 30 25-Hydroxy Vitamin D2 5 25-Hydroxy Vitamin D3 25 TSH PTH Intact 53 Calcium (PTH Intact) 10.3 Blood Type Antibody Screen Lab Results 05/15/21 05/15/21 05/15/21 Range/Units 08:30 08:38 08:38 WBC 4.7 L (4.8-10.8) X10*3/uL RBC 4.19 L (4.20-5.50) X10*6/uL Hgb 12.0 (12.0-16.0) g/dl Hct 36.9 L (37.0-47.0) % MCV 88.1 (80.0-98.0) fL MCH 28.6 (27.0-33.0) pg MCHC 32.5 (31.0-35.0) g/dl RDW 14.1 (11.0-16.0) % Plt Count 202 (160-400) X10*3/uL MPV 11.8 (9.4-12.3) fL Immature Gran % (Auto) 0.2 (0.0-0.4) % Neut % (Auto) 61.3 (45-73) % Lymph % (Auto) 24.7 (20-40) % Dickenson % (Auto) 8.0 (2-11) % Eos % (Auto) 5.6 H (0-4) % Baso % (Auto) 0.2 (0-2) % Lymph # (Auto) 1.2 (1.2-4.9) X10*3/uL Dickenson # (Auto) 0.4 (0.1-1.2) X10*3/uL Eos # (Auto) 0.3 (0.0-0.4) X10*3/uL Baso # (Auto) 0.0 (0.0-0.2) X10*3/uL Abs Immat Gran (auto) 0.01 (0.00-0.03) X10*3/uL Absolute Neuts (auto) 2.9 (2.0-8.3) x10*3/uL Absolute Nucleated RBC 0.000 (0.0-0.012) X10*3/uL Nucleated RBC % (auto) 0.0 (0.0-0.2) /100WBC PT 11.5 (9.9-13.0) SEC INR 1.0 (0.9-1.1) APTT 26.2 (24.1-38.0) SEC Sodium (135-145) mmol/L Potassium (3.3-5.1) mmol/L Chloride (96-108) mmol/L Carbon Dioxide (22-29) mmol/L Anion Gap (12-20) BUN (9-16) mg/dL Creatinine (0.5-1.4) mg/dL Estim Creat Clear Calc Estimated GFR Random Glucose (60-115) mg/dL Estimat Average Glucose mg/dL Hemoglobin A1c % % Insulin Level (2-29) uU/mL Calcium (8.4-10.2) mg/dL Ionized Calcium (4.8-5.6) mg/dL Total Bilirubin (0.0-1.0) mg/dL AST (5-31) U/L ALT (0-31) U/L Alkaline Phosphatase (39-117) U/L C-Reactive Protein (< or = 0.50) mg/dL Total Protein (6.5-8.0) g/dL Albumin (3.5-5.0) g/dL Triglycerides mg/dL Cholesterol mg/dL LDL Cholesterol, Calc mg/dl HDL Cholesterol mg/dL 25-OH Vitamin D Total (30-100) ng/mL 25-Hydroxy Vitamin D2 ng/mL 25-Hydroxy Vitamin D3 ng/mL TSH (0.32-4.0) uIU/mL PTH Intact (14-64) pg/mL Calcium (PTH Intact) (8.6-10.4) mg/dL COVID-19 ([facility]) (Negative) COVID-19 Clin Com Blood Type A Positive Antibody Screen NEGATIVE 05/15/21 05/15/21 05/15/21 Range/Units 08:38 08:38 08:38 WBC (4.8-10.8) X10*3/uL RBC (4.20-5.50) X10*6/uL Hgb (12.0-16.0) g/dl Hct (37.0-47.0) % MCV (80.0-98.0) fL MCH (27.0-33.0) pg MCHC (31.0-35.0) g/dl RDW (11.0-16.0) % Plt Count (160-400) X10*3/uL MPV (9.4-12.3) fL Immature Gran % (Auto) (0.0-0.4) % Neut % (Auto) (45-73) % Lymph % (Auto) (20-40) % Dickenson % (Auto) (2-11) % Eos % (Auto) (0-4) % Baso % (Auto) (0-2) % Lymph # (Auto) (1.2-4.9) X10*3/uL Dickenson # (Auto) (0.1-1.2) X10*3/uL Eos # (Auto) (0.0-0.4) X10*3/uL Baso # (Auto) (0.0-0.2) X10*3/uL Abs Immat Gran (auto) (0.00-0.03) X10*3/uL Absolute Neuts (auto) (2.0-8.3) x10*3/uL Absolute Nucleated RBC (0.0-0.012) X10*3/uL Nucleated RBC % (auto) (0.0-0.2) /100WBC PT (9.9-13.0) SEC INR (0.9-1.1) APTT (24.1-38.0) SEC Sodium 144 (135-145) mmol/L Potassium 4.0 (3.3-5.1) mmol/L Chloride 109 H (96-108) mmol/L Carbon Dioxide 27 (22-29) mmol/L Anion Gap 12 (12-20) BUN 18 H (9-16) mg/dL Creatinine 0.86 (0.5-1.4) mg/dL Estim Creat Clear Calc TNP Estimated GFR > 60 Random Glucose 107 (60-115) mg/dL Estimat Average Glucose 100 mg/dL Hemoglobin A1c % 5.1 % Insulin Level 9 (2-29) uU/mL Calcium 10.3 H D (8.4-10.2) mg/dL Ionized Calcium 5.1 (4.8-5.6) mg/dL Total Bilirubin 0.6 (0.0-1.0) mg/dL AST 22 (5-31) U/L ALT 16 (0-31) U/L Alkaline Phosphatase 50 (39-117) U/L C-Reactive Protein 0.25 (< or = 0.50) mg/dL Total Protein 7.5 (6.5-8.0) g/dL Albumin 4.1 (3.5-5.0) g/dL Triglycerides 79 mg/dL Cholesterol 168 mg/dL LDL Cholesterol, Calc 110 mg/dl HDL Cholesterol 43 mg/dL 25-OH Vitamin D Total (30-100) ng/mL 25-Hydroxy Vitamin D2 ng/mL 25-Hydroxy Vitamin D3 ng/mL TSH 1.62 (0.32-4.0) uIU/mL PTH Intact (14-64) pg/mL Calcium (PTH Intact) (8.6-10.4) mg/dL COVID-19 ([facility]) (Negative) COVID-19 Clin Com Blood Type Antibody Screen 05/15/21 05/21/21 Range/Units 08:38 12:00 WBC (4.8-10.8) X10*3/uL RBC (4.20-5.50) X10*6/uL Hgb (12.0-16.0) g/dl Hct (37.0-47.0) % MCV (80.0-98.0) fL MCH (27.0-33.0) pg MCHC (31.0-35.0) g/dl RDW (11.0-16.0) % Plt Count (160-400) X10*3/uL MPV (9.4-12.3) fL Immature Gran % (Auto) (0.0-0.4) % Neut % (Auto) (45-73) % Lymph % (Auto) (20-40) % Dickenson % (Auto) (2-11) % Eos % (Auto) (0-4) % Baso % (Auto) (0-2) % Lymph # (Auto) (1.2-4.9) X10*3/uL Dickenson # (Auto) (0.1-1.2) X10*3/uL Eos # (Auto) (0.0-0.4) X10*3/uL Baso # (Auto) (0.0-0.2) X10*3/uL Abs Immat Gran (auto) (0.00-0.03) X10*3/uL Absolute Neuts (auto) (2.0-8.3) x10*3/uL Absolute Nucleated RBC (0.0-0.012) X10*3/uL Nucleated RBC % (auto) (0.0-0.2) /100WBC PT (9.9-13.0) SEC INR (0.9-1.1) APTT (24.1-38.0) SEC Sodium (135-145) mmol/L Potassium (3.3-5.1) mmol/L Chloride (96-108) mmol/L Carbon Dioxide (22-29) mmol/L Anion Gap (12-20) BUN (9-16) mg/dL Creatinine (0.5-1.4) mg/dL Estim Creat Clear Calc Estimated GFR Random Glucose (60-115) mg/dL Estimat Average Glucose mg/dL Hemoglobin A1c % % Insulin Level (2-29) uU/mL Calcium (8.4-10.2) mg/dL Ionized Calcium (4.8-5.6) mg/dL Total Bilirubin (0.0-1.0) mg/dL AST (5-31) U/L ALT (0-31) U/L Alkaline Phosphatase (39-117) U/L C-Reactive Protein (< or = 0.50) mg/dL Total Protein (6.5-8.0) g/dL Albumin (3.5-5.0) g/dL Triglycerides mg/dL Cholesterol mg/dL LDL Cholesterol, Calc mg/dl HDL Cholesterol mg/dL 25-OH Vitamin D Total 30 (30-100) ng/mL 25-Hydroxy Vitamin D2 5 ng/mL 25-Hydroxy Vitamin D3 25 ng/mL TSH (0.32-4.0) uIU/mL PTH Intact 53 (14-64) pg/mL Calcium (PTH Intact) 10.3 (8.6-10.4) mg/dL COVID-19 ([facility]) Negative (Negative) COVID-19 Clin Com See Note Blood Type Antibody Screen Airway Mallampati Class: II TM Dist: >3cm Neck ROM: Full Loose/Missing/Broken Teeth: No Heart: RRR Lungs: CTAB Assessment and Plan Assessment Anesthesia Assessment: Anesthesia Plan Discussed Final Anesthetic Review Family History of Problems with Anesthesia: No History of Problems with Anesthesia: No NPO: Yes ASA Class: III Final Preanesthetic Review: No Changes in Pt Med Stat, Meds/Allgs Chart Reviewed, Consent Obtained/Reviewed and Anes Risks/Benef Reviewed Patient Risk: Intermediate Procedure Risk: Intermediate Assessment/Block/Sedation in SS: Assess/Block/Sedation-SS Anesthetic Plan Anesthetic Plan: GA Disposition: Standard PACU and Inp. Admit - Standard Bed
[2021-05-21 13:05] LABS: COVID-19 Test Negative (Negative); IDNOW Serial# 55D5AD1C
[2021-05-22] VITALS (27 sets, daily range): BP systolic 98–128; BP diastolic 54–76; PULSE 58–83; RESP 14–20; TEMP 36.1–37.3; O2SAT 96–100
[2021-05-22] MEDS: Lactated Ringers 1,000 ML 999 ML IV (06:51)
[2021-05-22] MEDS: Lactated Ringers 1,000 ML 100 ML IVCONT (06:57)
--- NOTE | 2021-05-22 10:31 | PM.OP ---
Brief Operative Note Date of Service: 05/22/21 Pre-op diagnosis: Severe obesity with comorbidities (see below) Post-op diagnosis: same (& extensive abdominal adhesions) Procedure: INITIAL PATIENT BMI ON PRESENTATION AT OUR OFFICE: 38.8 kg/m2 LAST BMI BEFORE SURGERY: 33.2 kg/m2 COMORBIDITIES: GERD, hypertension, depression, Sjorgen's syndrome, dizziness, liver steatosis ?The patient presented to the Weight Management Program with significant obesity that was negatively impacting the patient's comorbidities as listed above.? The program is a phased program with a special focus on preoperative medical weight management to promote substantial weight loss and prepare the patients for the second phase of the program: bariatric surgery. The patient participated in an intensive weekly lifestyle ?intervention and exercise program during which the patient ?has lost between the initial office visit and the last preoperative visit 31.1lbs, or 13.7% of initial actual body weight. It was deemed appropriate for the patient to now have bariatric surgery. In light of the current Covid-19 pandemic and the well documented strong association of obesity and increased risk of worse outcomes if infected with Covid-19 (REFERENCES:https://pubmed.ncbi.nlm.nih.gov/31518779/,?https://pubmed.ncbi.nlm.nih.gov/00343491/), any delay in undergoing bariatric surgery may lead to the patient's worsening health condition and increased?risk of more severe Covid-19 disease if infected. In addition a recent?study from [facility] published in [facility] on 04/29/2021 ([email or web address]) found that, among patients with obesity, substantial weight loss achieved with surgery was associated with improved outcomes of COVID-19 infection. The findings suggest that obesity can be a modifiable risk factor for the severity of COVID-19 infection. In addition, the patient met the BMI-criteria for bariatric surgery based on the BMI on initial presentation. The patient should not be penalized for achieving such weight loss because ?it is not sustainable long-term without surgical intervention and it was achieved in preparation for bariatric surgery ?under my direction and based on my published research ([email or web address]).pdf and?[email or web address].soard.org/article/[email or web address](36)91205-X/pdf) ?that a 10% preoperative weight loss improves long-term weight loss after surgery and reduces perioperative complications.? Insurance carriers such as [facility] have endorsed my recommendations ?and have included in their policies criteria to include a 10% preoperative weight loss requirement. PROCEDURE: Esophago-gastroscopy, laparoscopic lysis of adhesions, laparoscopic sleeve gastrectomy and laparoscopic gastropexy INDICATIONS: This is a 61 year-old female who was electively scheduled for laparoscopic, possibly open sleeve gastrectomy. The risks and complications of the procedure were discussed with the patient in advance, particularly the possibility of ; pulmonary embolism; staple line leak; bleeding; GERD; cardiac, pulmonary, or renal complications; as well as long-term problems such as insufficient weight loss, vitamin deficiency, strictures, or ulcers. The patient understood all the risks, and was in agreement to proceed with surgery. DESCRIPTION OF PROCEDURE: After informed consent was obtained from the patient, the patient was given preoperative antibiotics, and was transferred to the operating room. After successful induction of general anesthesia, pneumatic compression devices were placed on both lower extremities. An upper endoscopy was performed next. The oropharynx and esophagus appeared to be within normal limits. There was no diaphragmatic hernia present consistent with the findings of the preoperative upper GI. The stomach was entered. Then after all fluid and air were suctioned and the stomach was fully decompressed, the scope was withdrawn and secured in the mid esophagus. The patient was then prepped and draped in the usual sterile manner, and abdominal access was established at the right upper quadrant with the Linda technique. A 12 mm blunt port was inserted, and the abdomen was insufflated with CO2 to a pressure of 15 mmHg. Under direct visualization, additional ports were placed, specifically two 5 mm Versi-step ports to the left upper quadrant, and a 5 mm Versi-Step port to the right upper quadrant. 1% lidocaine plain was used to infiltrate all port sites as well as all fascia defects. There were adhesions in the abdomen involving the omentum and the left anterior abdominal wall. Those were lysed completely with the ultrasonic device. Following that, the patient was placed in a steep reverse Trendelenburg position. An additional 5 mm port was placed to the right flank for the Mediflex retractor that was used to retract the left lobe of the liver. The gastro-esophageal fat pad was opened with the ultrasonic device (Thunderbeat, Olympus) and the anterior esophagus and hiatus were exposed. The angle of His was opened with the ultrasonic device the fundus of the stomach from any diaphragmatic and splenic attachments. I then opened the gastrocolic ligament between the transverse colon and the greater curvature of the stomach with the ultrasonic device to enter the lesser sac and facilitate the ligation of the short gastric vessels. I started at a mid-point along the greater curvature and using the Thunderbeat, all short gastric vessels were divided all the way to the angle of His until the left daniel was completely dissected at its entirety. I then divided the gastro-colic ligament distally to a distance of about 3-4 cm proximal to the esophagus. There were extensive congenital adhesions between the pancreas and posterior gastric wall. Those were lysed completely with the ultrasonic device. Adhesiolysis took approximately 45 min to complete. The stomach was then divided transversely with one Endo IDALIA-45 purple and four IDALIA-60 articulating orange loads using the AEON stapler and loads. Every effort was made that the gastric sleeve had a tubular shape and an even caliber throughout. Once the sleeve resection was completed, the staple line of the gastric sleeve was reinforced with Hemoclips. The resected stomach was retrieved without difficulty from the Linda port. A gastropexy was then performed in order to prevent postoperative GERD and partial gastric volvulus. Several interrupted 2.0 Surgidac sutures were placed between the sleeve's staple line and the previously divided greater omentum and gastro-colic ligament using the Endo-Stitch device. ?An upper endoscopy was performed. There was no narrowing at the GE junction. The scope was easily advanced all the way to the pylorus which was clearly visualized. There was no narrowing anywhere and the sleeve's caliber was even throughout. The sleeve's staple line was inspected and there was no evidence of ischemia, bleeding or dehiscence. At that point the gastroscope was withdrawn from the patient?s mouth while we were decompressing the bowel and the stomach from any remaining air. I looked into the lesser sac to see how the sleeve was situating and it was situating well. There was no bleeding from the staple line, spleen, or short gastric vessels. The Mediflex retractor was removed, and the undersurface of the liver was inspected and there was no bleeding. The patient was placed in supine position. I closed the fascial defect of the 12 mm port site with a figure of eight #1 Polysorb suture. Then 100 cc 0.25 % Marcaine plain with 10 mg of Dexamethasone were used to infiltrate the fascial closure as well as all skin incisions. At this point, the abdomen was deflated, all ports were removed under direct vision, and no bleeding was noted from any of the port sites. The skin incisions were irrigated with saline and were closed with 4-0 absorbable monofilament sutures. Steri-Strips and OpSites were used to cover all incisions. The patient was extubated and was transferred in stable condition to the recovery room for further care. I was present and performed all patel parts of the procedure. Mr. Munguia was the sales and marketing assistant. There were no residents to assist with this case. Ajay Minor MD, PhD, FACS Surgeon: Thuan Minor MD Anesthesia: GETA, local and other (TAP block) Was an Oracle Manager used for this Procedure?: Yes Oracle Manager: Ezequiel Munguia Estimated blood loss (mL): 10 IV fluids (mL): 3,000 Urine output (mL): 0 (No Myers to record) Pathology: other (Stomach) Condition: stable Disposition: PACU
--- NOTE | 2021-05-22 10:33 | PM.DS ---
DS: Providers Provider Date of Service: 05/23/21 Date of admission: 05/22/21 06:17 Primary care physician: Meka Nguyễn MD DS: Summary Hospital Course Hospital Course: ADMITTING DIAGNOSIS: morbid obesity, hyperparathyroidism, chronic fatigue, chronic pain, htn, sjogrens syndrome, osetoarthrisit ? DISCHARGE DIAGNOSIS: same, s/p laparoscopic sleeve gastrectomy ? PAST SURGICAL HISTORY: tubal ligation, cesarian section ? PROCEDURE: upper endoscopy, laparoscopic sleeve gastrectomy ? DISCHARGE SUMMARY: ? History of Present Illness: ? The patient is a?61 year-old woman with a BMI of?38.7 kg/m2 and associated co-morbidities as described above. The patient had extensive work-up,lost?31.8 lbs preoperatively and was electively scheduled for laparoscopic, possible open sleeve gastrectomy and gastropexy. Risks and complications of the surgery were discussed with the patient in advance, particularly the possibility of , pulmonary embolism, anastomotic leak, bleeding, bowel injury, GERD, cardiac, renal or pulmonary complications. The patient understood all the risks and was in agreement with the surgical plan. ? Hospital Course: ? The patient underwent an uneventful laparoscopic sleeve gastrectomy with gastropexy on the day of admission. Postoperatively, the patient was transferred to the surgical floor. The patient received IV Acetaminophen and IV dilaudid for pain control. Patient was started on bariatric phase 1 diet POD #0. On postoperative day one, the patient was feeling well without nausea, vomiting, fevers, or tachycardia. The patient had some mild incisional pain and the abdomen was soft. ? On the morning of postoperative day one, the patient was continued on 1 ounce of water or ice every half hour. During the day, the patient did fairly well, having some incisional pain, but able to ambulate adequately and to tolerate liquids well. ? Since the patient is doing well, we decided that the patient was ready to be discharged. The patient was given instructions to follow-up with me next week and to call my office for any fever over 101, persistent abdominal pain, nausea, vomiting, GERD, symptoms of DVT such as calf tenderness, or leg swelling, or pulmonary embolism such as chest pain or shortness of breath. The patient was also instructed to drink 40-60 ounces of liquids per day using the 1-ounce cups. The patient had been given prescriptions for Tylenol for pain, Zofran prn for nausea, and pantoprazole and carafate previously. The patient was encouraged to ambulate and use the incentive spirometer. The patient was allowed to shower, but no baths, and encouraged to stay active at home. All of these instructions were given to the patient personally. All questions were answered and the patient understood all instructions, the instructions were also given to the patient in print. Time Spent with Patient Time attestation: Total time spent providing and/or coordinating discharge services: Discharge coordination time: Less than 30 minutes Quality: Stroke Does the patient have a stroke diagnosis?: No Physical Exam Vital Signs: Vital Signs: Last Vital Signs Temp 99.1 F 05/22/21 06:37 Pulse 67 05/22/21 06:37 Resp 16 05/22/21 06:37 BP 98/58 L 05/22/21 06:37 Pulse Ox 97 05/22/21 06:37 BMI result Body Mass Index 33.1 DS: Data Data Completed and Pending Pending studies at discharge: Pending at discharge 05/22/21 09:37 Surgical [PTH] Routine Labs on day of discharge: Laboratory Results - last 24 hr 05/21/21 12:00 COVID-19 (RICKI) Negative COVID-19 Clin Com See Note Discharge Plan Discharge Patient Disposition: Home, Self-Care Discharge Diagnosis: s/p laparoscopic sleeve gastrewxctomy Referrals: Meka Pena MD [Primary Care Provider] - 1 Week Discharge Medications: Continued amlodipine 5 mg tablet 5 mg PO DAILY Qty: 90 RF: 2 lisinopril 20 mg tablet 20 mg PO DAILY Qty: 90 RF: 2 metoprolol tartrate 100 mg tablet 100 mg PO BID 90 Days Qty: 180 RF: 3 escitalopram oxalate 10 mg tablet 10 mg PO DAILY 90 Days Qty: 90 RF: 1 pantoprazole 40 mg tablet,delayed release (DR/EC) 40 mg PO DAILY Qty: 30 RF: 2 sucralfate 100 mg/mL suspension 10 ml PO BID Qty: 400 RF: 2 ondansetron HCl 4 mg tablet 4 mg PO Q12H Qty: 14 RF: 0 Held aspirin 81 mg tablet,delayed release (DR/EC) 81 mg PO DAILY 90 Days Qty: 90 RF: 3 Hold Instructions: UNtil discussed with Dr Minor meclizine 25 mg tablet 25 mg PO TID PRN (Reason: dizziness) 30 Days Qty: 90 RF: 0 Hold Instructions: until discussed with Dr Minor gabapentin 400 mg capsule 400 mg PO TID 30 Days Qty: 90 RF: 12 Hold Instructions: until discussed with Dr Minor Discontinued hydrochlorothiazide 25 mg tablet 25 mg PO QAM Qty: 90 RF: 2 famotidine 20 mg tablet 20 mg PO BEDTIME 90 Days Qty: 90 RF: 1 cholecalciferol (vitamin D3) 25 mcg (1,000 unit) capsule 25 mcg PO DAILY 90 Days Qty: 90 RF: 1 polyethylene glycol 3350 [Miralax] 17 gram powder in packet 17 g PO DAILY Qty: 14 RF: 0 Discharge Orders: Discharge Order (Routine); Ordered 05/23/21 Ordered By: Thuan Minor Diet: other Activity on Discharge: No heavy lifting Stand Alone Forms: Patient Portal Discharge page Care Plan Goals: weight loss Health Concerns: morbid obesity Plan of Treatment: No tub baths, sex or returning to work until discussed at first post op appointment. No exercise, alcohol, tobacco or illegal drug use. Continue to use incentive spirometer hourly while awake. Walk in home for 5- 10 minutes every 2 hours during the first week. Follow all instructions in the bariatric handbook and call with any questions.Discharge Instructions 1. Please call your doctor or come back to the emergency room should any new symptoms arise. 2. You will receive a courtesy call from [facility] 24-48 hours after discharge. 3. Activity: abstain from alcohol, practice limited stair climbing, no bending, no driving, no exercise, no illicit substances, no lifting, no sex, no tub bath, no work. 4. Diet: continue as discussed with Dr. Minor. 5. Dressing Change/Wound Care: Your incision is covered by clear bandages and guaze underneath. If the area is tender, you may apply an ice pack for short intervals (no more than 20 minutes on, followed by at least 20 minutes off). Do not apply heat. Do not use creams, lotions, or topical antibiotics unless instructed to do so by your surgeon. These can cause infection or allergic reaction. 6. Call your doctor if: - Your temperature exceeds 101.5 F - You experience excessive pain or swelling - You have an unexpected reaction to medication - You have excessive bleeding - You experience continued vomiting/nausea - Your incision begins to separate - Your incision shows signs of infection such as increased redness, swelling, excessive pain, heat, or drainage (light blood or clear fluid is normal) 7. General instructions: No lifting greater than 5 lbs for the next 4 weeks. No driving within 24 hours of taking narcotic pain medications. If you do not move your bowels in the next 2 days, please take milk of magnesia over the counter. Please follow the post op diet and do not advance your diet until you are seen in the office in about 2 weeks. Please walk around your home every hour or two to prevent blood clots from forming in your legs. You do not need to wake from sleeping to walk. Please sleep in a bed or couch to prevent kinking at the hips and knees. Please take your incentive spirometer (your lung math coach) home with you and use it for the next few days to prevent pneumonias. You may shower, no hot tubs, baths or swimming pools. Please call the office with any questions or concerns such as increasing abdominal pain, fever, chills, shortness of breath, chest pain, leg pain or swelling, or redness or drainage from your incisions. Please stay on stage 3 diet which includes sugar free clear liquids such as ice pops and jello and broth and crystal light. Avoid all carbonation. Please drink 3 protein shakes with at least 25-30 grams of protein daily or 3 of the Celebrate 4:1 shakes which can be purchased in our office. The Celebrate shakes have all of the bariatric vitamins you need if you consume these shakes. If you are drinking other protein shakes, you will need to purchase the Celebrate multivitamins and calcium that we provide in the office (they will provide all the vitamins you need). Please make sure you are consuming at least 40-60 ounces of water in addition to your 3 protein shakes daily. Do not hesitate to contact the office with any questions at . The patient's medical history has been reviewed and they are considered low risk for post op DVT and therefore DVT prophylaxis is not considered necessary. Travel after surgery was reviewed. The patient has not disclosed any travel plans during the first 30 days after surgery and they have been advised that within the first 30 days after surgery any bus, plane, train or car travel over 2 hours in duration is contraindicated due to the possibility of developing blood clots from immobility. Any travel, needs to include periods of ambulation of 10 minutes in duration every 2 hours.? The patient was instructed to discuss any plans for travel during this period with their bariatric surgeon. Assessment: stable s/p laparoscopic sleeve gastrectomy Discharge Date/Time: 05/23/21 09:45
--- NOTE | 2021-05-22 10:35 | P.PNGS_ITS ---
Subjective Subjective Date of Service: 05/23/21 Interval history: Patient has mild incisional pain, but was able to ambulate and use the incentive spirometer. She is tolerating phase 1 bariatric diet Physical Exam Vital Signs: Vital Signs: Last Vital Signs Temp 99.1 F 05/22/21 06:37 Pulse 67 05/22/21 06:37 Resp 16 05/22/21 06:37 BP 98/58 L 05/22/21 06:37 Pulse Ox 97 05/22/21 06:37 BMI result Body Mass Index 33.1 GI: Inspection: Yes normal to inspection, Yes incision (clean, dry and intact) and Yes obesity Extrem: Right lower extremity: normal to inspection (no calf tenderness) Left lower extremity: normal to inspection (no calf tenderness) Objective Data Active Medications Famotidine (Famotidine/Pf 20 Mg/2 Ml Vial) 20 mg IVPUSH BID PRAMOD Fentanyl (Fentanyl Citrate/Pf 100 Mcg/2 Ml Vial) 25 mcg IVPUSH Q5M PRN; Protocol PRN Reason: Pain, Moderate (Pain Scale 4-6 Hydromorphone HCl (Hydromorphone Hcl 0.5 Mg/0.5 Ml Syringe) 0.25 mg IVPUSH Q5M PRN; Protocol PRN Reason: Pain, Severe (Pain Scale 7-10) Hydromorphone HCl (Hydromorphone Hcl 1 Mg/Ml Syringe) 0.25 mg IVPUSH Q4H PRN; Protocol PRN Reason: Pain, Moderate (Pain Scale 4-6 Lactated Ringer's (Lr) 1,000 mls @ 100 mls/hr IVCONT .Q10H [facility] Last Admin: 05/22/21 06:57 Dose: 100 mls/hr Documented by: URMILA Promethazine HCl 6.25 mg/ (Sodium Chloride) 50.25 mls @ 201 mls/hr IV ONCE PRN PRN Reason: Nausea and Vomiting Lactated Ringer's (Lr) 1,000 mls @ 150 mls/hr IVCONT .Q6H40M [facility] Acetaminophen (Ofirmev) 1,000 mg in 100 mls @ 16.7 mls/hr IV .Q6H [facility] Metoclopramide HCl (Metoclopramide Hcl 10 Mg/2 Ml Vial) 10 mg IVPUSH Q6H PRN PRN Reason: Nausea Ondansetron HCl (Ondansetron Hcl 4 Mg/2 Ml Vial) 4 mg IVPUSH ONCE PRN PRN Reason: Nausea and Vomiting Ondansetron HCl (Ondansetron Hcl 4 Mg/2 Ml Vial) 4 mg IVPUSH Q8H [facility] Sodium Chloride (0.9 % Sodium Chloride Flush 3 Ml Syringe) 3 ml IVFLUSH QSHIFT PRAMOD Labs CBC & Chem 7: 05/23/21 04:23 05/23/21 04:23 Labs: Laboratory Results - last 24 hr 05/21/21 12:00 COVID-19 ([facility]ICKI) Negative COVID-19 Clin Com See Note Procedures Date of Service Date of Service: 05/23/21 Progress Note: A&P Assessment and plan (1) S/P laparoscopic sleeve gastrectomy: Status: Acute Assessment and Plan: s/p laparoscopic sleeve gastrectomy, lysis of adhesions and gastropexy Doing well Check am labs. If OK, will discharge home? (2) Obesity: Status: Acute (3) BMI 33.0-33.9,adult: Status: Acute (4) Acquired spondylolysis of lumbar spine: Status: Acute (5) Dizziness: Status: Acute (6) Essential hypertension: Status: Acute (7) Intra-abdominal adhesions: Status: Acute (8) Congenital intra-abdominal adhesions: Status: Acute (9) GERD (gastroesophageal reflux disease): Status: Acute (10) Moderate recurrent major depression: Status: Acute (11) Hx of Sjogren's disease: Status: Acute (12) Fatty liver: Status: Acute Fall Risk Details Current Medications: Current Medications Famotidine (Famotidine/Pf 20 Mg/2 Ml Vial) 20 mg IVPUSH BID [facility] Fentanyl (Fentanyl Citrate/Pf 100 Mcg/2 Ml Vial) 25 mcg IVPUSH Q5M PRN; Pro tocol PRN Reason: Pain, Moderate (Pain Scale 4-6 Hydromorphone HCl (Hydromorphone Hcl 0.5 Mg/0.5 Ml Syringe) 0.25 mg IVPUSH Q5M PRN; Protocol PRN Reason: Pain, Severe (Pain Scale 7-10) Hydromorphone HCl (Hydromorphone Hcl 1 Mg/Ml Syringe) 0.25 mg IVPUSH Q4H PRN; Protocol PRN Reason: Pain, Moderate (Pain Scale 4-6 Lactated Ringer's (Lr) 1,000 mls @ 100 mls/hr IVCONT .Q10H [facility] Last Admin: 05/22/21 06:57 Dose: 100 mls/hr Documented by: Promethazine HCl 6.25 mg/ (Sodium Chloride) 50.25 mls @ 201 mls/hr IV ONCE PRN PRN Reason: Nausea and Vomiting Lactated Ringer's (Lr) 1,000 mls @ 150 mls/hr IVCONT .Q6H40M [facility] Acetaminophen (Ofirmev) 1,000 mg in 100 mls @ 16.7 mls/hr IV .Q6H [facility] Metoclopramide HCl (Metoclopramide Hcl 10 Mg/2 Ml Vial) 10 mg IVPUSH Q6H PRN PRN Reason: Nausea Ondansetron HCl (Ondansetron Hcl 4 Mg/2 Ml Vial) 4 mg IVPUSH ONCE PRN PRN Reason: Nausea and Vomiting Ondansetron HCl (Ondansetron Hcl 4 Mg/2 Ml Vial) 4 mg IVPUSH Q8H [facility]AM[facility] Sodium Chloride (0.9 % Sodium Chloride Flush 3 Ml Syringe) 3 ml IVFLUSH QSHIFT PRAMOD Time Spent With Patient Time: Total time spent is greater than 50% in coordination of care (as documented) at patient's floor/unit and/or counseling patient: Time with patient: less than 15 minutes Quality Stroke Does the patient have a stroke diagnosis?: No VTE Prior VTE?: No VTE Risk Level:: Surgical - moderate VTE Device Contraindication: N/A - Device Ordered VTE Drug Contraindication: Treatment Not Indicated
[2021-05-22 10:44] LABS: Hematocrit 32.4 % (37.0-47.0); Hemoglobin 10.7 g/dl (12.0-16.0)
[2021-05-22] MEDS: HYDROmorphone HCl 0.5 MG/0.5 ML SYRINGE 0.25 MG IVPUSH ×4 (11:01→12:57)
[2021-05-22] MEDS: Famotidine/PF 20 MG/2 ML VIAL IVPUSH ×2 (11:08→23:31)
[2021-05-22] MEDS: Lactated Ringers 1,000 ML 150 ML IVCONT ×2 (11:47→18:30)
[2021-05-22 21:15] LABS: Anion Gap 17 (12-20); Blood Urea Nitrogen 16 mg/dL (9-16); Carbon Dioxide 16 mmol/L (22-29); Chloride 111 mmol/L (96-108); Creatinine Clr Calc Pharmacy 71.1; Estimated Glomerular Filt Rate > 60; Glucose Random 133 mg/dL (60-115); Potassium 5.3 mmol/L (3.3-5.1); Sodium 139 mmol/L (135-145)
[2021-05-22] MEDS: 0.9 % Sodium Chloride Flush 3 ML SYRINGE IVFLUSH (23:29)
[2021-05-22] MEDS: ondansetron HCL 4 MG/2 ML VIAL IVPUSH (23:30)
[2021-05-22] MEDS: LORazepam 2 MG/ML VIAL 0.5 MG IVPUSH (23:55)
[2021-05-23] MEDS: Lactated Ringers 1,000 ML 150 ML IVCONT ×2 (00:51→08:04)
[2021-05-23 02:15] VITALS: BP 123/67; PULSE 80; RESP 16; TEMP 36.6; O2SAT 98
[2021-05-23 04:32] LABS: MANUAL DIFF FLAG NO
[2021-05-23 04:35] LABS: Basophils Percent Auto 0.1 % (0-2); Hematocrit 32.1 % (37.0-47.0); Hemoglobin 10.8 g/dl (12.0-16.0); Imm Gran Abs Auto 0.03 X10*3/uL (0.00-0.03); Imm Gran Pct Auto 0.4 % (0.0-0.4); Lymphocytes Absolute Auto 0.6 X10*3/uL (1.2-4.9); Lymphocytes Percent Auto 7.2 % (20-40); Mean Corpuscular HGB Conc 33.6 g/dl (31.0-35.0); Mean Corpuscular Hemoglobin 29.2 pg (27.0-33.0); Mean Corpuscular Volume 86.8 fL (80.0-98.0); Mean Platelet Volume 11.5 fL (9.4-12.3); Monocytes Absolute Auto 0.4 X10*3/uL (0.1-1.2); Neutrophils Absolute Auto 7.2 x10*3/uL (2.0-8.3); Neutrophils Percent Auto 87.3 % (45-73); Platelet Count 160 X10*3/uL (160-400); Red Cell Distribution Width 13.7 % (11.0-16.0); White Blood Count 8.2 X10*3/uL (4.8-10.8)
[2021-05-23 05:02] LABS: Anion Gap 15 (12-20); Blood Urea Nitrogen 15 mg/dL (9-16); Calcium 8.9 mg/dL (8.4-10.2); Carbon Dioxide 19 mmol/L (22-29); Chloride 110 mmol/L (96-108); Creatinine Clr Calc Pharmacy 82.1; Estimated Glomerular Filt Rate > 60; Glucose Random 116 mg/dL (60-115); Potassium 4.1 mmol/L (3.3-5.1); Sodium 140 mmol/L (135-145)
[2021-05-23 05:46] VITALS: BP 126/71; PULSE 79; RESP 18; TEMP 37.3; O2SAT 99
[2021-05-23] MEDS: ondansetron HCL 4 MG/2 ML VIAL IVPUSH (08:01)
[2021-05-23] MEDS: Metoprolol Tartrate 100 MG TABLET PO (08:05)
[2021-05-23] MEDS: amLODIPine Besylate 5 MG TABLET PO (08:06)
[2021-05-23] MEDS: lisinopriL 20 MG TABLET PO (08:06)
[2021-05-23 08:10] VITALS: BP 123/72; PULSE 80
[2021-05-23] MEDS: Famotidine/PF 20 MG/2 ML VIAL IVPUSH (08:10)
[2021-05-23] MEDS: 0.9 % Sodium Chloride Flush 3 ML SYRINGE IVFLUSH (08:15)
--- NOTE | 2021-05-23 08:40 | PC.NURSE ---
Report to Renetta Duffy and Jennifer Sandoval Rns
[2021-05-23 08:46] VITALS: PULSE 80; RESP 16; TEMP 37.3; O2SAT 99
--- NOTE | 2021-05-23 14:08 | HO.POSTANES ---
Post Anesthesia Evaluation Post Anesthesia Evaluation Vital Signs: Vital Signs Temp Pulse Resp BP Pulse Ox 05/23/21 08:46 99.2 F 80 16 99 05/23/21 08:10 80 123/72 05/23/21 05:46 99.2 F 79 18 126/71 99 05/23/21 02:15 97.9 F 80 16 123/67 98 Anesthesia: General Endotracheal-GETA Mental Status: Awake Pain Control: Satisfactory Nausea/Vomiting: None Hydration: Adequate Anesthesia-Related Issues: No Anes. Related Issues
== END 2021-05-23 09:45 | disposition home or self-care (01) | DRG 403 ==
PROVIDERS: Physician Assistant; Physician Assistant Surgical; Admitting Provider Surgery; PCP Internal Medicine; Visit Provider Surgery
PROC: 0DB64Z3 Excision of Stomach, Percutaneous Endoscopic Approach, Vertical (ICD-10-PCS; CPT 43845; principal; 2021-05-22 07:30)
DX: E66.01 Morbid (severe) obesity due to excess calories (principal); K76.0 Fatty (change of) liver, not elsewhere classified; F32.A Depression, unspecified; I10 Essential (primary) hypertension; R42 Dizziness and giddiness; M19.90 Unspecified osteoarthritis, unspecified site; R53.82 Chronic fatigue, unspecified; K66.0 Peritoneal adhesions (postprocedural) (postinfection); K21.9 Gastro-esophageal reflux disease without esophagitis; M35.00 Sjogren syndrome, unspecified; Z20.822 Contact with and (suspected) exposure to COVID-19; Z68.33 Body mass index [BMI] 33.0-33.9, adult; Z79.82 Long term (current) use of aspirin; Z79.899 Other long term (current) drug therapy
CPT/HCPCS: 36415; 80048; 80053; 80061; 82306; 82330; 83036; 83525; 83970; 84443; 85014; 85018; 85025; 85610; 85730; 86140; 86850; 86900; 86901; 87635; 88307; 88342; 99024; A4649; J0131; J1100; J1170; J1956; J2060; J2250; J2370; J2405; J3010

== ENCOUNTER → 2021-05-29 10:13 | Outpatient (BNVA) | payer OTHER, SELFPAY | PROVIDERS: PCP Internal Medicine; Referring Provider Internal Medicine; Visit Provider Surgery | DX: E66.9 Obesity, unspecified (principal); Z68.31 Body mass index [BMI] 31.0-31.9, adult; Z98.84 Bariatric surgery status | CPT/HCPCS: 99212 ==

== ENCOUNTER → 2021-07-03 15:15 | Outpatient (BNVA) | payer OTHER, SELFPAY | PROVIDERS: PCP Internal Medicine; Visit Provider Physician Assistant Surgical | DX: E66.9 Obesity, unspecified (principal); Z68.30 Body mass index [BMI] 30.0-30.9, adult | CPT/HCPCS: 99212 ==

== ENCOUNTER → 2021-07-29 09:20 | Outpatient (BNVA) | payer OTHER, SELFPAY | PROVIDERS: PCP Internal Medicine; Referring Provider Internal Medicine; Visit Provider Physician Assistant Surgical | DX: E66.3 Overweight (principal); Z68.28 Body mass index [BMI] 28.0-28.9, adult | CPT/HCPCS: 99212 ==

== ENCOUNTER 2021-08-08 09:55 | Day surgery (SDC) | payer OTHER, SELFPAY ==
--- NOTE | 2021-08-07 10:40 | HO.ANESPROP2 ---
Documented by User: Rody Govea NP 08/07/21 10:41 HPI - Anesthesia Eval Consult details Narrative: 61yo F for Bilateral Medial Branch Block s/p gastric sleeve 05/2021 with GA-ETT 7 PMFSH Active Problems Active Problems: All Active Problems (Updated 07/29/21 @ 09:46 by LAI Castanon) Obesity (Acute) BMI 38.0-38.9,adult (Acute) H. pylori infection (Acute) BMI 36.0-36.9,adult (Acute) Nausea (Acute) Elevated serum creatinine (Acute) BMI 34.0-34.9,adult (Acute) BMI 32.0-32.9,adult (Acute) S/P laparoscopic sleeve gastrectomy (Acute) BMI 33.0-33.9,adult (Acute) Intra-abdominal adhesions (Acute) Congenital intra-abdominal adhesions (Acute) BMI 31.0-31.9,adult (Acute) Overweight (Acute) Fatty liver (Acute) Hx of Sjogren's disease (Acute) GERD (gastroesophageal reflux disease) (Acute) Hyperparathyroidism (Acute) Moderate recurrent major depression (Acute) Morbid obesity (Acute) Right shoulder pain (Acute) Acquired spondylolysis of lumbar spine (Acute) Dizziness (Acute) Chronic fatigue (Acute) Essential hypertension (Acute) Chronic pain syndrome (Acute) Postlaminectomy syndrome of lumbar region (Acute) Sjogrens syndrome (Acute) Primary osteoarthritis of hands, bilateral (Acute) ANURADHA positive (Acute) SS-A antibody positive (Acute) Past Medical History Medical History (Updated 07/29/21 @ 09:46 by LAI Castanon) Acquired spondylolysis of lumbar spine ANURADHA positive Anxiety Arthritis Chronic fatigue Chronic pain syndrome Depression Dizziness Essential hypertension Fatty liver GERD (gastroesophageal reflux disease) Hx of Sjogren's disease Hyperparathyroidism Hypertension Moderate recurrent major depression Morbid obesity On beta maye at home Postlaminectomy syndrome of lumbar region Primary osteoarthritis of hands, bilateral Right shoulder pain Sjogrens syndrome SS-A antibody positive Family History Family History Father No problems noted. Mother Hypertension Sister Breast cancer Blind Family/Other Mental health disorder Substance use disorder Family history of problems with anesthesia: No Surgical History Surgical History (Updated 08/05/21 @ 11:40 by Harmony Goodwin RN) History of surgery History of tubal ligation Hx of bariatric surgery Hx of section Hx of colonoscopy Hx of esophagogastroduodenoscopy History of Problems with Anesthesia: No Social History Social History Housing: Apartment Are you a primary direct care worker to a significant other at home: No Do you presently have visiting nurse or other home services: No Alcohol intake: current Alcohol intake frequency: does not drink Patient Tobacco Use Status: Former Tobacco user Quit Date: 1984 Tobacco use type: Cigarette Smoked in Last 30 Days: No e-Cigarette/Vaping Use: Never Used Second Hand Smoke Exposure: No Use of substances other than those prescribed or required for medical reasons: No Are you DNR?: No Advance Directives: No Advance Directives Information Provided: Yes Advance Directives Date on File: 06/08/20 service: No Current occupational status: disabled Meds Allergies Allergy/AdvReac Type Severity Reaction Status Date / Time morphine Allergy Intermediate dizzy,sick Verified 08/08/21 10:11 amoxicillin [AMOXICILLIN] Allergy Mild GENERALIZED Verified 08/08/21 10:11 SWELLING & ITCHY RASH, swelling, rash,diff. breathing Exam Exam Date and Time: August 07, 2021 1040 Pertinent Lab Results Pertinent Lab Results: Laboratory Tests 05/23/21 05/23/21 04:23 04:23 WBC 8.2 Hgb 10.8 L Hct 32.1 L Plt Count 160 Sodium 140 Potassium 4.1 D Chloride 110 H Carbon Dioxide 19 L BUN 15 Creatinine 0.77 Narrative Narrative: EKG 03/2021 Vent. Rate : 062 BPM ? ? Atrial Rate : 062 BPM ?? P-R Int : 158 ms? QRS Dur : 094 ms ? ? QT Int : 406 ms ? ? ? P-R-T Axes : 045 016 003 degrees ?? QTc Int : 412 ms ? Normal sinus rhythm Normal ECG When compared with ECG of 26-OCT-2017 12:47, No significant change was found Assessment and Plan Assessment Anesthesia Assessment: Chart Reviewed Final Anesthetic Review Family History of Problems with Anesthesia: No History of Problems with Anesthesia: No Documented by User: Shaun Bragg MD 08/08/21 11:22 [facility] Past Medical History Medical History (Updated 07/29/21 @ 09:46 by LAI Castanon) Acquired spondylolysis of lumbar spine ANURADHA positive Anxiety Arthritis Chronic fatigue Chronic pain syndrome Depression Dizziness Essential hypertension Fatty liver GERD (gastroesophageal reflux disease) Hx of Sjogren's disease Hyperparathyroidism Hypertension Moderate recurrent major depression Morbid obesity On beta maye at home Postlaminectomy syndrome of lumbar region Primary osteoarthritis of hands, bilateral Right shoulder pain Sjogrens syndrome SS-A antibody positive Family History Family History Father No problems noted. Mother Hypertension Sister Breast cancer Blind Family/Other Mental health disorder Substance use disorder Family history of problems with anesthesia: No Surgical History Surgical History (Updated 08/05/21 @ 11:40 by Harmony Goodwin RN) History of surgery History of tubal ligation Hx of bariatric surgery Hx of section Hx of colonoscopy Hx of esophagogastroduodenoscopy History of Problems with Anesthesia: No Social History Social History Housing: Apartment Are you a primary direct care worker to a significant other at home: No Do you presently have visiting nurse or other home services: No Alcohol intake: current Alcohol intake frequency: does not drink Patient Tobacco Use Status: Former Tobacco user Quit Date: 1984 Tobacco use type: Cigarette Smoked in Last 30 Days: No e-Cigarette/Vaping Use: Never Used Second Hand Smoke Exposure: No Use of substances other than those prescribed or required for medical reasons: No Are you DNR?: No Advance Directives: No Advance Directives Information Provided: Yes Advance Directives Date on File: 06/08/20 service: No Current occupational status: disabled Meds Allergies Allergy/AdvReac Type Severity Reaction Status Date / Time morphine Allergy Intermediate dizzy,sick Verified 08/08/21 10:11 amoxicillin [AMOXICILLIN] Allergy Mild GENERALIZED Verified 08/08/21 10:11 SWELLING & ITCHY RASH, swelling, rash,diff. breathing Exam Airway Mallampati Class: I TM Dist: >3cm Neck ROM: Full Partial: Upper Heart: ok Lungs: ok Assessment and Plan Assessment Anesthesia Assessment: Anesthesia Plan Discussed and Chart Reviewed Final Anesthetic Review Family History of Problems with Anesthesia: No History of Problems with Anesthesia: No NPO: Yes ASA Class: III Final Preanesthetic Review: No Changes in Pt Med Stat, Meds/Allgs Chart Reviewed and Consent Obtained/Reviewed Patient Risk: Intermediate Procedure Risk: Intermediate Anesthetic Plan Anesthetic Plan: MAC: and Agree w/ Assess. and Plan Disposition: Standard PACU
--- NOTE | ~2021-08-08 | FL_ITS ---
EXAMINATION: XR FLUOROSCOPY WITH IMAGES CLINICAL INFORMATION: Medial branch block. COMPARISON: None. TECHNIQUE: Fluoroscopy performed by Dr. Glen Paige. Fluoroscopy time: 0.5 minutes DAP: 13.3 mGy-cm2 Images: 6 FINDINGS: There are 6 digital images obtained revealing needle positioned bilaterally lateral to the L5-S1, L4-L5 and L3-L4 facet joints. The visualized vertebral heights and disc heights are normal. The SI joints are symmetrical. FL/FL guidance in OR IMPRESSION: Fluoroscopy was provided to referring physician for pain management.
[2021-08-08 10:12] VITALS: BMI 28.3
--- NOTE | 2021-08-08 10:20 | MHC.SHP ---
Pre-Procedural Eval Section A Date of Service: 08/08/21 The patient is an INPATIENT: No Changes since office visit: Yes Patient answered all questions The History & Physical has been completed within 30 days and I have reviewed it.: No Section B Chief Complaint: postlaminectomy syndrome Details of Present Illness: as above Relevant Family History (Specify if Yes): No Relevant Social History: Other (specify) Present Medications: None Medical History: No relevant PMH History of Previous Operations: No relevant previous surgery Allergies: Allergies Allergy/AdvReac Type Severity Reaction Status Date / Time morphine Allergy Intermediate dizzy,sick Verified 08/08/21 10:11 amoxicillin [AMOXICILLIN] Allergy Mild GENERALIZED Verified 08/08/21 10:11 SWELLING & ITCHY RASH, swelling, rash,diff. breathing Review of Systems Sugical H&P ROS: Negative: Constitution, Cardiovascular, Respiratory, Neurological, Psychiatric, Hem-Onc, Allergic/Immunologic, Gastrointestinal, Genitourinary, Musculoskeletal, Integumentary, Endocrine and Eyes/Ears/Nose/Throat Exam Surgical H&P Exam: Normal: HEENT, Normal: Heart, Normal: Lungs, Normal: Extremities, Normal: Abdomen, Normal: Skin and Normal: Neurological Plan Diagnosis/Plan: Unchanged I have reviewed the history and physical and performed a pertinent physical examination on my patient. No changes have occurred unless specified.
[2021-08-08 10:37] VITALS: BP 142/81; PULSE 75; RESP 16; TEMP 36.8; O2SAT 100
[2021-08-08] MEDS: Lactated Ringers 1,000 ML 100 ML IVCONT (10:49)
--- NOTE | 2021-08-08 12:07 | P.BOP_ITS ---
Brief Operative Note Date of Service: 08/08/21 Pre-op diagnosis: spondylosis lumbar without myelo or radiculopathy Post-op diagnosis: same Procedure: diagnostic MBB L3, L4. DRL5 bilateral Implants: none Surgeon: Glen Paige MD Was an Attendance Clerk used for this Procedure?: No Estimated blood loss (mL): 1 Pathology: none sent Condition: stable Disposition: PACU
--- NOTE | 2021-08-08 12:08 | P.OP_ITS ---
Operative Note Operative Note Date of Service: 08/08/21 Narrative: Bilateral diagnostic Medial branch block L3-L4 -L5. ? ? Informed consent was explained to the patient. All questions were explained and? answered.? The patient was taken inside the operating room where she was positioned prone on the operating table. Time-out was performed delineating correct site, side, the nature of the procedure, patient's allergy, preoperative antibiotic if needed.? All operating room staff was participating in OR time-out procedure. ASA monitors were applied and the patient was sedated. Unfortunately on insistence of the anesthesiologist the patient received 50mcg of Fentanyl during the sedation. ? ?The lower back was prepped with ChloraPrep and draped with sterile towels. C- arm was brought over the operating field and sq picture of L4-and L5 vertebra and S1 AREA were delineated on the screen.? Point of interest were delineated as connection of superior articular process of L4 and L5 vertebra bilaterally with corresponding transverse processes as well as connection of the sacral ala bilaterally with superior articular process of S1.? The projection of the point of interest to the skin were injected with the small amount of local anesthetic lidocaine 2% 1-1.5 cc.? After that 22 gauge 3-1/2 inch spinal needle was driven sequentially to the points of interest in tunnel vision fashion. After needles gently contacted the bone at the point of interests the needle was injected with small amount of the contrast.? The injection of the contrast did not demonstrate any intravascular or intrathecal spread of the contrast.? After that injection of the? bupivacaine 0.5%-1cc was performed at each needle location. The patient tolerated the procedure well, She was taken outside of the or to the recovery room and recovered uneventfully. ? ?
[2021-08-08 12:14] VITALS: BP 111/62; PULSE 75; RESP 16; TEMP 36.4; O2SAT 99
[2021-08-08 12:28] VITALS: BP 122/67; PULSE 68; RESP 16; TEMP 36.3; O2SAT 100
== END 2021-08-08 13:19 | disposition home or self-care (01) ==
PROVIDERS: PCP Internal Medicine; Visit Provider Anesthesiology
PROC: (CPT 64493; principal; 2021-08-08 11:30)
DX: M96.1 Postlaminectomy syndrome, not elsewhere classified (principal); M54.50 Low back pain, unspecified; G89.4 Chronic pain syndrome; M47.816 Spondylosis without myelopathy or radiculopathy, lumbar region; R76.0 Raised antibody titer; M35.00 Sjogren syndrome, unspecified; M19.042 Primary osteoarthritis, left hand; M19.041 Primary osteoarthritis, right hand; I10 Essential (primary) hypertension; F32.9 Major depressive disorder, single episode, unspecified; Z79.899 Other long term (current) drug therapy; Z87.891 Personal history of nicotine dependence; Z88.0 Allergy status to penicillin; Z88.8 Allergy status to other drugs, medicaments and biological substances; Z98.890 Other specified postprocedural states
CPT/HCPCS: 64493; 64494; J3010; J3300; Q9967

== ENCOUNTER → 2021-08-14 14:22 | Outpatient (BNVA) | payer OTHER, SELFPAY | PROVIDERS: PCP Internal Medicine; Visit Provider Anesthesiology | DX: Z13.89 Encounter for screening for other disorder (principal) ==

== ENCOUNTER → 2021-09-02 08:44 | Outpatient (BNVA) | payer OTHER, SELFPAY | PROVIDERS: PCP Internal Medicine; Visit Provider Dietitian, Registered | DX: E66.9 Obesity, unspecified (principal); Z68.27 Body mass index [BMI] 27.0-27.9, adult | CPT/HCPCS: 97803 ==

== ENCOUNTER → 2021-09-18 08:29 | Outpatient (BNVA) | payer OTHER, SELFPAY | PROVIDERS: PCP Internal Medicine; Referring Provider Physician Assistant Surgical; Visit Provider Dietitian, Registered | DX: E66.3 Overweight (principal); Z68.26 Body mass index [BMI] 26.0-26.9, adult | CPT/HCPCS: 97803 ==

== ENCOUNTER 2021-09-20 08:38 | Emergency (ER) | payer OTHER, SELFPAY ==
--- NOTE | ~2021-09-20 | CT_ITS ---
EXAMINATION: CT ABDOMEN AND PELVIS WITHOUT CONTRAST CLINICAL INFORMATION: Left flank pain, left upper quadrant pain. COMPARISON: Abdominal ultrasound dated from 02/25/2021. CT abdomen/pelvis dated from 04/06/2013. TECHNIQUE: Multidetector volumetric imaging was performed from the superior aspect of the liver through the pubic symphysis. Sagittal and coronal reformatted images were obtained on the technologist's workstation. This CT examination was performed using dose optimization techniques as appropriate, variously including the following: *Automated exposure control *Adjustment of mA and/or kV according to patient size (this includes techniques or standardized protocols for targeted exams where dose is matched to indication/reason for exam; i.e. extremities or head) *Use of iterative reconstruction technique DLP: 479 mGy-cm FINDINGS: LUNG BASES: Evaluation of pulmonary nodules is limited due to respiratory motion. There are patchy and groundglass opacities in the left lower lobe. LIVER, GALLBLADDER, AND BILIARY TREE: The noncontrast liver is normal in size, shape and attenuation. No discrete focal lesions are identified. Normal gallbladder. No biliary ductal dilatation. PANCREAS: Unremarkable. SPLEEN: Unremarkable. ADRENAL GLANDS: Unremarkable. KIDNEYS AND URETERS: There is moderate left hydroureteronephrosis with a 0.4 cm calculus in the left UVJ. There is mild asymmetric left-sided perinephric fat stranding. Redemonstration of a water density cyst in the midpole of the left kidney. BLADDER: Underdistended and suboptimally assessed. GASTROINTESTINAL TRACT: Surgical sutures from gastric sleeve. No active inflammatory bowel changes or evidence of obstruction. Colonic diverticulosis. ABDOMINAL WALL: No significant hernia is appreciated. LYMPH NODES: Evaluation of lymph nodes is limited due to motion and lack of intravenous contrast. No bulky lymphadenopathy is identified. VASCULAR: Scattered atherosclerotic disease. PELVIC VISCERA: Trace amount of free fluid. Nonspecific small calcification in the left ovary. OSSEOUS STRUCTURES: No acute or aggressive appearing osseous abnormalities. Multilevel thoracolumbar spondylosis. CT/CT abdomen pelvis wo con IMPRESSION: 1. Moderate left hydroureteronephrosis with a 0.4 cm calculus in the left UVJ. There is asymmetric left perinephric fat stranding which could be reactive. Clinical correlation for infection should be obtained. 2. Patchy airspace opacities in the left lower lobe raising the possibility of pneumonia. Recommend a follow-up chest CT after treatment to ensure adequate resolution. 3. Diverticulosis but no evidence of acute diverticulitis.
[2021-09-20 08:55] VITALS: BP 163/92; PULSE 74; RESP 18; TEMP 36; O2SAT 100; BMI 26.2
--- NOTE | 2021-09-20 11:13 | ED_ITS ---
HPI - Abdominal Pain General Chief Complaint: Abdominal Pain Stated Complaint: Vomiting/Lower back pain/hip pain Time Seen by Provider: 09/20/21 10:37 Source: patient Mode of arrival: ambulatory Limitations: language barrier (American speaking only) History of Present Illness HPI narrative: 61-year-old female who presents emergency department for evaluation of left lower back pain and left upper quadrant abdominal pain. The patient states the pain came on gradually last night around 21:30 hours while she was at rest. She describes the pain as a tightness which is been constant since onset. The pain is 9/10 at its worst. She has had associated nausea and had 3 episodes of vomiting. She states that she has had similar pain on and off over the past 2-3 weeks but cannot tell me how often she gets this pain. She denied any pain or numbness in her lower extremities. She states she did have chills but denied fever. She denied chest pain, shortness of breath, dyspnea on exertion, vomiting or diarrhea. She does have associated nausea. She has noted urinary frequency and dysuria. The patient had a lap sleeve gastrectomy in May of 2021. She states she has had back problems in the past and has had injections in her back. MD elicited complaint: abdominal pain and flank pain Onset (ago): day(s) (1) Pain Consistency: constant Location: LUQ and L flank Severity: severe Pain scale (0-10): 8 Quality: other (Type) Radiation: LUQ Migration to: no migration Exacerbating factors: nothing Relieving factors: nothing Associated symptoms: nausea, chills and dysuria (Urinary frequent) Related Data Home Medications Medication Instructions Recorded Confirmed gabapentin 400 mg capsule 400 mg PO TID 08/14/21 Previous Rx's Medication Instructions Recorded pantoprazole 40 mg tablet,delayed 40 mg PO DAILY #30 tab 05/14/21 release ondansetron 4 mg disintegrating 4 mg PO Q6-8H PRN #14 tab 09/20/21 tablet oxycodone 5 mg tablet 5 mg PO Q4H PRN #14 tab 09/20/21 tamsulosin 0.4 mg capsule (Flomax) 0.4 mg PO DAILY #14 cap 09/20/21 Allergies Allergy/AdvReac Type Severity Reaction Status Date / Time morphine Allergy Intermediate dizzy,sick Verified 09/20/21 08:58 amoxicillin [AMOXICILLIN] Allergy Mild GENERALIZED Verified 09/20/21 08:58 SWELLING & ITCHY RASH, swelling, rash,diff. breathing Review of Systems Review of Systems Yes all other systems are reviewed and are negative [facility] Past Medical History [facility] Narrative: Social history: She denies tobacco, alcohol and drug use. Medical History Acquired spondylolysis of lumbar spine ANURADHA positive Anxiety Arthritis Chronic fatigue Chronic pain syndrome Depression Dizziness Essential hypertension Fatty liver GERD (gastroesophageal reflux disease) Hx of Sjogren's disease Hyperparathyroidism Hypertension Moderate recurrent major depression Morbid obesity On beta maye at home Postlaminectomy syndrome of lumbar region Primary osteoarthritis of hands, bilateral Right shoulder pain Sjogrens syndrome SS-A antibody positive Surgical History History of surgery History of tubal ligation Hx of bariatric surgery Hx of section Hx of colonoscopy Hx of esophagogastroduodenoscopy Family History Family History Father No problems noted. Mother Hypertension Sister Breast cancer Blind Family/Other Mental health disorder Substance use disorder Social History Social History Housing: Apartment Are you a primary restorative care technician to a significant other at home: No Do you presently have visiting nurse or other home services: No Alcohol intake: unknown Patient Tobacco Use Status: Former Tobacco user Quit Date: 1984 Tobacco use type: Cigarette e-Cigarette/Vaping Use: Never Used Second Hand Smoke Exposure: No Use of substances other than those prescribed or required for medical reasons: No Advance Directives: No Advance Directives Information Provided: Yes Advance Directives Date on File: 06/08/20 Patient : No service: No Current occupational status: disabled Physical Exam ED Vital Signs: Vital Signs - 24 hr 09/20/21 08:55 09/20/21 12:05 Temperature 96.8 F Pulse Rate 74 60 Respiratory Rate 18 18 Blood Pressure 163/92 H 141/69 H Pulse Oximetry 100 99 BMI result Body Mass Index 26.2 Const General: cooperative and no acute distress Orientation/consciousness: oriented to person and oriented to place Limitations: no limitations HENMT Head: Yes normal to inspection, Yes normocephalic and Yes atraumatic Ears: external ears normal General nose exam: Normal external nose present Face and sinus: Yes normal facial exam Mouth: Normal oral and palatal mucosa present Throat: Yes posterior oropharynx normal Eyes General: appearance normal, both eyes and all related structures Pupils: Equal, round and reactive pupils present Neck Neck: Yes normal visual inspection, Yes no lymphadenopathy, Yes trachea midline and Yes supple Chest Chest palpation & inspection: normal inspection of the chest and normal palpation of entire chest wall Resp Effort & Inspection: normal respiratory effort and able to speak in complete sentences Auscultation: clear to auscultation bilaterally Cardio Rate: regular rate Rhythm: regular rhythm Heart sounds: S1 normal heart sound present, S2 normal heart sound present and no murmurs GI Inspection: Yes normal to inspection Palpation (GI): Soft to palpation, Tenderness to palpation present (GI) in the LUQ (Mild) and no guarding Auscultation: normal bowel sounds General: Yes CVA tenderness on the left (Moderate) Back/Spine/Pelvis Back: CVA tenderness Skin General skin exam: no rashes or lesions noted Neuro General: oriented to person and oriented to place Cranial nerves: Yes CN's II-XII intact bilaterally and Yes Equal, round and reactive pupils present Cognition (Neuro): normal cognition Motor exam (neuro): 5/5 motor strength present throughout Extrem General: Yes normal to inspection Psych Appearance: grossly normal Speech and movement: Normal speech and movement present Affect: normal affect Attitude: cooperative Thought process: Normal thought process present Thought content: Normal thought content present Course Course Course Narrative: 61-year-old female who presents emergency department for evaluation of intermittent left flank pain x2 weeks with increased pain yesterday at 21:30 hours. The pain is located in her left flank and radiates to her left abdomen. The pain was 8/10 at its worst. Patient's vital signs did reveal an elevated blood pressure of 163/92 otherwise were unremarkable. The patient did have left CVA tenderness and left-sided abdominal tenderness. Her CBC and CMP were unremarkable. Urinalysis was positive for blood and microscopic revealed 49 RBCs, no WBCs and no bacteria. CT scan of the abdomen pelvis revealed a 4 mm ureteral calculus at the UVJ with moderate left hydronephrosis. The patient did receive Toradol 15 mg IV, Zofran 4 mg IV, tamsulosin 0.4 mg orally normal saline x1 L. she is currently pain-free. Patient was advised to take Tylenol and ibuprofen and for pain not relieved by these 2 medications she was prescribed oxycodone. She was also prescribed Zofran and tamsulosin. Patient was given printed and verbal instructions advised to follow-up with the on-call urologist in 1-2 weeks for re-evaluation and return if her symptoms get worse. MDM - Abdominal Pain Lab Data Result diagrams: 09/20/21 11:33 09/20/21 11:54 Labs: Lab Results 09/20/21 09/20/21 09/20/21 Range/Units 11:33 11:33 11:54 WBC 5.5 (4.8-10.8) X10*3/uL RBC 3.91 L (4.20-5.50) X10*6/uL Hgb 11.2 L (12.0-16.0) g/dl Hct 34.2 L (37.0-47.0) % MCV 87.5 (80.0-98.0) fL MCH 28.6 (27.0-33.0) pg MCHC 32.7 (31.0-35.0) g/dl RDW 14.0 (11.0-16.0) % Plt Count 176 (160-400) X10*3/uL MPV 12.5 H (9.4-12.3) fL Immature Gran % (Auto) 0.4 (0.0-0.4) % Neut % (Auto) 86.2 H (45-73) % Lymph % (Auto) 8.7 L (20-40) % [place] % (Auto) 4.5 (2-11) % Eos % (Auto) 0.0 (0-4) % Baso % (Auto) 0.2 (0-2) % Lymph # (Auto) 0.5 L (1.2-4.9) X10*3/uL [place] # (Auto) 0.3 (0.1-1.2) X10*3/uL Eos # (Auto) 0.0 (0.0-0.4) X10*3/uL Baso # (Auto) 0.0 (0.0-0.2) X10*3/uL Abs Immat Gran (auto) 0.02 (0.00-0.03) X10*3/uL Absolute Neuts (auto) 4.7 (2.0-8.3) x10*3/uL Absolute Nucleated RBC 0.000 (0.0-0.012) X10*3/uL Nucleated RBC % (auto) 0.0 (0.0-0.2) /100WBC Sodium 143 (135-145) mmol/L Potassium 4.6 (3.3-5.1) mmol/L Chloride 111 H (96-108) mmol/L Carbon Dioxide 25 (22-29) mmol/L Anion Gap 12 (12-20) BUN 21 H (9-16) mg/dL Creatinine 1.02 (0.5-1.4) mg/dL Estim Creat Clear Calc 55.3 Estimated GFR 55 Random Glucose 113 (60-115) mg/dL Calcium 9.5 D (8.4-10.2) mg/dL Total Bilirubin 0.3 (0.0-1.0) mg/dL AST 22 (5-31) U/L ALT 14 (0-31) U/L Alkaline Phosphatase 52 (39-117) U/L Total Protein 6.5 (6.5-8.0) g/dL Albumin 3.5 (3.5-5.0) g/dL Lipase 28 (8-78) U/L Urine Color YELLOW Urine Appearance HAZY Urine pH 7.0 (5.0-8.0) Ur Specific [place] 1.020 (1.005-1.025) Urine Protein TRACE (NEG-TRACE) MG/DL Urine Glucose (UA) NEG (NEG) MG/DL Urine Ketones 40 (NEG) MG/DL Urine Blood 1+ H (NEG) Urine Nitrite NEG (NEG) Ur Leukocyte Esterase NEG (NEG) Urine RBC 30-49 H (0) /HPF Urine WBC 0-2 (0-4) /HPF Ur Squamous Epith Cells 1+ /LPF Amorphous Sediment 2+ /LPF Urine Bacteria NONE /LPF Urine Mucus 2+ /LPF Discharge Plan Discharge Clinical Impression: Renal colic on left side, Calculus of distal left ureter Patient Disposition: Home, Self-Care Instructions: How to Strain Your Urine (ED), Ureteral Stones (ED) Additional Instructions: Your blood work was normal. Your urine had blood in it but otherwise was unremarkable with no evidence for an infection. Your CT scan of the abdomen pelvis without IV contrast revealed a 4 mm stone in the ureter (the tube that connects the kidney to the bladder) and the stone is right at the ureteral vesicular junction (where the tube connects to the bladder). Take ibuprofen 200 mg pills, 3 pills every 6 hours as needed for pain. Take Tylenol (acetaminophen) 500 mg pills, 2 pills every 4-6 hours as needed for pain. For pain not relieved by ibuprofen or Tylenol take oxycodone 5 mg pills, 1 pill every 4 hours as needed for pain. Do not drive or work while taking this medication since they can cause sleepiness. Oxycodone is a narcotic medication that can be addicting. If you are concerned about addiction you can ask the pharmacist for less pills or do not get this prescription filled. Take Zofran ODT 4 mg pills, 1 pill dissolved in your mouth every 8 hours as needed for nausea and vomiting. Take Flomax (tamsulosin) 0.4 mg once a day for the next 2 weeks or until you pass the stone. This medication helps relax the ureter and may help you pass the stone sooner. Follow-up with our on-call urologist, Dr. Perez in 1-2 weeks. Please return to the emergency department if your symptoms get worse or if you develop any symptoms that are concerning to you. Prescriptions: New tamsulosin [Flomax] 0.4 mg capsule 0.4 mg PO DAILY Qty: 14 0RF oxycodone 5 mg tablet 5 mg PO Q4H PRN (Reason: pain) Qty: 14 0RF Rx Instructions: Patient may request partial fill ondansetron 4 mg tablet,disintegrating 4 mg PO Q6-8H PRN (Reason: nausea and vomiting) Qty: 14 0RF No Action gabapentin 400 mg capsule 400 mg PO TID 0RF pantoprazole 40 mg tablet,delayed release (DR/EC) 40 mg PO DAILY Qty: 30 2RF Print Language: American
[2021-09-20] MEDS: ondansetron HCL 4 MG/2 ML VIAL IVPUSH (11:29)
[2021-09-20] MEDS: Ketorolac Tromethamine 15 MG/ML VIAL IVPUSH (11:29)
[2021-09-20] MEDS: 0.9 % Sodium Chloride 1,000 ML 999 ML IV (11:29)
[2021-09-20 11:38] LABS: MANUAL DIFF FLAG NO
[2021-09-20 11:40] LABS: Basophils Percent Auto 0.2 % (0-2); Hematocrit 34.2 % (37.0-47.0); Hemoglobin 11.2 g/dl (12.0-16.0); Imm Gran Abs Auto 0.02 X10*3/uL (0.00-0.03); Imm Gran Pct Auto 0.4 % (0.0-0.4); Lymphocytes Absolute Auto 0.5 X10*3/uL (1.2-4.9); Lymphocytes Percent Auto 8.7 % (20-40); Mean Corpuscular HGB Conc 32.7 g/dl (31.0-35.0); Mean Corpuscular Hemoglobin 28.6 pg (27.0-33.0); Mean Corpuscular Volume 87.5 fL (80.0-98.0); Mean Platelet Volume 12.5 fL (9.4-12.3); Monocytes Absolute Auto 0.3 X10*3/uL (0.1-1.2); Monocytes Percent Auto 4.5 % (2-11); Neutrophils Absolute Auto 4.7 x10*3/uL (2.0-8.3); Neutrophils Percent Auto 86.2 % (45-73); Platelet Count 176 X10*3/uL (160-400); Red Blood Count 3.91 X10*6/uL (4.20-5.50); White Blood Count 5.5 X10*3/uL (4.8-10.8)
[2021-09-20 11:41] LABS: Appearance Urine HAZY; Color Urine YELLOW; Glucose Urine UA NEG (NEG); Leukocyte Esterase Urine NEG (NEG); Nitrite Urine NEG (NEG); UACC Culture Trigger NO; Urine Blood 1+ (NEG); Urine Ketones 40 MG/DL (NEG); Urine Protein TRACE MG/DL (NEG-TRACE)
[2021-09-20 11:54] LABS: Amorphous Sediment Urine 2+ /LPF; Mucus Urine 2+ /LPF; RBC Urine 30-49 /HPF (0); Squamous Epithelial Cell Urine 1+ /LPF; WBC Urine 0-2 /HPF (0-4)
[2021-09-20 12:05] VITALS: BP 141/69; PULSE 60; RESP 18; O2SAT 99
[2021-09-20 12:16] LABS: Alanine Aminotransferase 14 U/L (0-31); Albumin Level 3.5 g/dL (3.5-5.0); Alkaline Phosphatase 52 U/L (39-117); Anion Gap 12 (12-20); Aspartate Amino Transferase 22 U/L (5-31); Bilirubin Total 0.3 mg/dL (0.0-1.0); Blood Urea Nitrogen 21 mg/dL (9-16); Calcium 9.5 mg/dL (8.4-10.2); Carbon Dioxide 25 mmol/L (22-29); Chloride 111 mmol/L (96-108); Creatinine Clr Calc Pharmacy 55.3; Estimated Glomerular Filt Rate 55; Glucose Random 113 mg/dL (60-115); Lipase 28 U/L (8-78); Potassium 4.6 mmol/L (3.3-5.1); Sodium 143 mmol/L (135-145); Total Protein 6.5 g/dL (6.5-8.0)
--- NOTE | 2021-09-20 13:17 | PC.NURSE ---
pt placed on monitor by this RN
[2021-09-20] MEDS: Tamsulosin HCL 0.4 MG CAPSULE PO (13:51)
[2021-09-20 14:00] VITALS: BP 146/79; PULSE 60; RESP 15; O2SAT 100
== END 2021-09-20 14:30 | disposition home or self-care (01) ==
PROVIDERS: Emergency Provider Emergency Medicine Emergency Medical Services; PCP Internal Medicine
DX: N13.2 Hydronephrosis with renal and ureteral calculous obstruction (principal); I10 Essential (primary) hypertension; Z98.84 Bariatric surgery status
CPT/HCPCS: 36415; 74176; 80053; 81001; 83690; 85025; 96361; 96374; 96375; 99284; J1885; J2405

== ENCOUNTER → 2021-10-23 09:07 | Outpatient (BNVA) | payer OTHER, SELFPAY | PROVIDERS: PCP Internal Medicine; Referring Provider Physician Assistant Surgical; Visit Provider Dietitian, Registered | DX: E66.9 Obesity, unspecified (principal); Z68.24 Body mass index [BMI] 24.0-24.9, adult; Z90.3 Acquired absence of stomach [part of] | CPT/HCPCS: 97803 ==

== ENCOUNTER 2021-12-05 07:42 | Outpatient (REF) | payer OTHER, SELFPAY ==
--- NOTE | ~2021-12-05 | US_ITS ---
EXAMINATION: US RETROPERITONEAL LIMITED (RENAL ONLY) CLINICAL INFORMATION: Calculus of kidney. COMPARISON: CT abdomen and pelvis 09/20/2021. TECHNIQUE: Real-time imaging of the kidneys. FINDINGS: RIGHT KIDNEY: 10.4 x 4.3 x 5.2 cm (SAG x AP x TRV). The kidney is normal in size, contour, and echogenicity. Renal cortical thickness is normal. No renal calculi or focal parenchymal lesions. Mild fullness of the renal pelvis, similar when compared to recent CT from September. LEFT KIDNEY: 9.3 x 5.3 x 5.4 cm (SAG x AP x TRV). The kidney is normal in size, contour, and echogenicity. Renal cortical thickness is normal. No renal calculi. Mild hydronephrosis, increased when compared to the CT from September. There is a 1.7 cm simple cyst in the upper pole, for which no imaging follow-up is recommended. OTHERS: Bilateral ureteral jets in the bladder are visualized. US/US renal BI IMPRESSION: Mild left hydronephrosis, decreased when compared to 09/20/2021. Prominence of the right renal pelvis, not significantly changed, nonspecific.
== END 2021-12-05 07:43 | disposition home or self-care (01) ==
LOC: HO.US 07:42
PROVIDERS: Visit Provider Internal Medicine
DX: N20.0 Calculus of kidney (principal)
CPT/HCPCS: 76775

== ENCOUNTER 2021-12-12 10:01 | Outpatient (REF) | payer OTHER, SELFPAY ==
[2021-12-12 10:58] LABS: MANUAL DIFF FLAG NO
[2021-12-12 12:40] LABS: Ferritin 78 ng/mL (10-250); Insulin 3 uU/mL (2-29); TSH reflex Free T4 0.49 uIU/mL (0.32-4.0); Vitamin D 25-OH Total 52.5 ng/mL (>30)
[2021-12-12 12:42] LABS: Anion Gap 13 (12-20); Blood Urea Nitrogen 22 mg/dL (9-16); C Reactive Protein 0.17 mg/dL (< or = 0.50); Carbon Dioxide 29 mmol/L (22-29); Chloride 104 mmol/L (96-108); Cholesterol 181 mg/dL; Estimated Glomerular Filt Rate > 60; Glucose Random 76 mg/dL (60-115); HDL Cholesterol 54 mg/dL; Iron 79 mcg/dL (30-160); LDL Cholesterol Calculated 118 mg/dl; Percent Iron Saturation 23 % (15-50); Sodium 141 mmol/L (135-145); Total Iron Binding Capacity 348 mcg/dL (228-428); Triglycerides 49 mg/dL; Unsaturated Iron Binding 269 ug/dL
[2021-12-12 14:29] LABS: Folate > 20.0 ng/mL (> or = 4.0); Vitamin B12 629 pg/mL (200-900)
[2021-12-12 15:22] LABS: Basophils Percent Auto 0.6 % (0-2); Eosinophils Absolute Auto 0.2 X10*3/uL (0.0-0.4); Eosinophils Percent Auto 4.8 % (0-4); Hematocrit 38.1 % (37.0-47.0); Hemoglobin 12.3 g/dl (12.0-16.0); Imm Gran Abs Auto 0.01 X10*3/uL (0.00-0.03); Imm Gran Pct Auto 0.2 % (0.0-0.4); Lymphocytes Absolute Auto 1.2 X10*3/uL (1.2-4.9); Lymphocytes Percent Auto 25.1 % (20-40); Mean Corpuscular HGB Conc 32.3 g/dl (31.0-35.0); Mean Corpuscular Hemoglobin 28.5 pg (27.0-33.0); Mean Corpuscular Volume 88.2 fL (80.0-98.0); Mean Platelet Volume 11.5 fL (9.4-12.3); Monocytes Absolute Auto 0.4 X10*3/uL (0.1-1.2); Neutrophils Absolute Auto 2.8 x10*3/uL (2.0-8.3); Neutrophils Percent Auto 61.3 % (45-73); Platelet Count 239 X10*3/uL (160-400); Red Blood Count 4.32 X10*6/uL (4.20-5.50); Red Cell Distribution Width 14.2 % (11.0-16.0); White Blood Count 4.6 X10*3/uL (4.8-10.8)
[2021-12-13 12:27] LABS: PTHI 68 pg/mL (16-77)
[2021-12-17 05:32] LABS: Zinc 65 mcg/dL (60-130)
[2021-12-18 12:51] LABS: Vitamin A 33 mcg/dL (38-98)
[2021-12-21 07:41] LABS: Vitamin B1 12 nmol/L (8-30)
== END 2021-12-12 10:02 | disposition home or self-care (01) ==
LOC: HO.LAB 10:01
PROVIDERS: PCP Internal Medicine; Visit Provider Physician Assistant Surgical
DX: Z98.84 Bariatric surgery status (principal)
CPT/HCPCS: 36415; 80048; 80061; 82306; 82607; 82728; 82746; 83525; 83540; 83970; 84425; 84443; 84590; 84630; 85025; 86140; 99212

== ENCOUNTER → 2021-12-25 12:03 | Outpatient (BNVA) | payer OTHER, SELFPAY | PROVIDERS: PCP Internal Medicine; Visit Provider Dietitian, Registered | DX: E66.9 Obesity, unspecified (principal); Z68.22 Body mass index [BMI] 22.0-22.9, adult; Z98.84 Bariatric surgery status; Z90.3 Acquired absence of stomach [part of]; Z71.3 Dietary counseling and surveillance | CPT/HCPCS: 97803 ==

== ENCOUNTER → 2022-02-06 11:41 | Outpatient (BNVA) | payer OTHER, SELFPAY | PROVIDERS: PCP Internal Medicine; Referring Provider Physician Assistant Surgical; Visit Provider Dietitian, Registered | DX: E66.3 Overweight (principal); Z68.23 Body mass index [BMI] 23.0-23.9, adult; Z98.84 Bariatric surgery status; Z90.3 Acquired absence of stomach [part of]; Z71.3 Dietary counseling and surveillance | CPT/HCPCS: 97803 ==

== ENCOUNTER → 2022-04-03 08:20 | Outpatient (BNVA) | payer OTHER, SELFPAY | PROVIDERS: PCP Internal Medicine; Visit Provider Anesthesiology | DX: M96.1 Postlaminectomy syndrome, not elsewhere classified (principal); G89.4 Chronic pain syndrome | CPT/HCPCS: 99212 ==

== ENCOUNTER → 2022-04-21 11:52 | Outpatient (BNVA) | payer OTHER, SELFPAY | PROVIDERS: PCP Internal Medicine; Visit Provider Dietitian, Registered | DX: Z90.3 Acquired absence of stomach [part of] (principal) | CPT/HCPCS: 97803 ==

== ENCOUNTER 2022-04-29 06:09 | Emergency (ER) | payer OTHER, SELFPAY ==
--- NOTE | ~2022-04-29 | XR_ITS ---
EXAMINATION: BILATERAL HIP X-RAY AND KUB CLINICAL INFORMATION: Bilateral hip pain. Flank pain. History of stones. COMPARISON: None TECHNIQUE: 2 views of each hip and supine view of the abdomen and pelvis FINDINGS: Bilateral hips: Bone alignment is normal. No fracture or dislocation. Small soft tissue calcifications adjacent to the superior lateral right hip joint probably representing chondrocalcinosis. Mild degenerative changes with osteophyte formation at the hip joints, left greater than right. Proliferative bone reaction adjacent to the left inferior pubic ramus and bilateral greater trochanters. KUB: Postsurgical changes probably to the stomach. Evaluation for renal stone is limited due to overlying bowel gas. Small density projecting over the lower pole of the left kidney questionable for a stone. This measures 3 mm. Small left pelvic calcification probably representing a calcified phlebolith. Constipation. Degenerative changes of the spine. XR/XR KUB IMPRESSION: Bilateral hips: Mild degenerative changes. KUB: Question small left lower pole renal stone.
--- NOTE | ~2022-04-29 | XR_ITS ---
EXAMINATION: BILATERAL HIP X-RAY AND KUB CLINICAL INFORMATION: Bilateral hip pain. Flank pain. History of stones. COMPARISON: None TECHNIQUE: 2 views of each hip and supine view of the abdomen and pelvis FINDINGS: Bilateral hips: Bone alignment is normal. No fracture or dislocation. Small soft tissue calcifications adjacent to the superior lateral right hip joint probably representing chondrocalcinosis. Mild degenerative changes with osteophyte formation at the hip joints, left greater than right. Proliferative bone reaction adjacent to the left inferior pubic ramus and bilateral greater trochanters. KUB: Postsurgical changes probably to the stomach. Evaluation for renal stone is limited due to overlying bowel gas. Small density projecting over the lower pole of the left kidney questionable for a stone. This measures 3 mm. Small left pelvic calcification probably representing a calcified phlebolith. Constipation. Degenerative changes of the spine. XR/XR hip BI w PEL1V IMPRESSION: Bilateral hips: Mild degenerative changes. KUB: Question small left lower pole renal stone.
[2022-04-29 06:17] VITALS: BP 113/72; PULSE 92; RESP 18; TEMP 36.7; O2SAT 100; BMI 23.5
[2022-04-29 07:00] LABS: Appearance Urine Clear; Color Urine Yellow; Glucose Urine UA Negative (Negative); Leukocyte Esterase Urine Negative (Negative); Nitrite Urine Negative (Negative); PH 6.5 (5.0-9.0); Specific Gravity - Urine 1.015 (1.005-1.025); Urine Blood Negative (Negative); Urine Ketones Negative (Negative); Urine Protein Negative (Neg-Trace)
[2022-04-29 09:37] VITALS: BP 110/60; PULSE 78; RESP 18; TEMP 36.9
[2022-04-29] MEDS: Ibuprofen 400 MG TABLET PO (10:12)
[2022-04-29] MEDS: Acetaminophen 325 MG TABLET 975 MG PO (10:12)
[2022-04-29 10:14] VITALS: BP 97/67; PULSE 76; RESP 16
--- NOTE | 2022-04-29 10:35 | ED_ITS ---
HPI - General Adult General Chief complaint: General Medical Stated complaint: biliteral hip pain and lower back pain Time Seen by Provider: 04/29/22 09:50 Source: patient and certified court interpreter Mode of arrival: ambulatory History of Present Illness HPI narrative: 61-year-old female with presentation of lower back and hip pain that is atraumatic in nature she denies any falls, denies any fever, chills, numbness/tingling/weakness into either lower extremity and denies any urinary pain. Related Data Home Medications Medication Instructions Recorded Confirmed Michael +D 2 cap PO DAILY 12/12/21 12/12/21 MVI (unknown name) PO DAILY 12/12/21 12/12/21 gabapentin 400 mg capsule 400 mg PO TID PRN pain 12/12/21 12/12/21 Previous Rx's Medication Instructions Recorded vitamin A palmitate 10,000 unit 10,000 unit PO DAILY #30 caps 12/18/21 capsule gabapentin 600 mg tablet 600 mg PO TID 30 days #90 tabs 04/23/22 Allergies Allergy/AdvReac Type Severity Reaction Status Date / Time morphine Allergy Intermediate dizzy,sick Verified 04/03/22 08:59 amoxicillin [AMOXICILLIN] Allergy Mild GENERALIZED Verified 04/03/22 08:59 SWELLING & ITCHY RASH, swelling, rash,diff. breathing Review of Systems Review of Systems: Pertinent positives and negatives as stated in HPI. [facility] Past Medical History Source: nursing notes reviewed Medical History Acquired spondylolysis of lumbar spine MEKA positive Anxiety Arthritis Chronic fatigue Chronic pain syndrome Depression Dizziness Essential hypertension Fatty liver GERD (gastroesophageal reflux disease) Hx of Sjogren's disease Hyperparathyroidism Hypertension Moderate recurrent major depression Morbid obesity On beta maye at home Postlaminectomy syndrome of lumbar region Primary osteoarthritis of hands, bilateral Right shoulder pain Sjogrens syndrome SS-A antibody positive Surgical History History of surgery History of tubal ligation Hx of bariatric surgery Hx of section Hx of colonoscopy Hx of esophagogastroduodenoscopy Family History Family History Father No problems noted. Mother Hypertension Sister Breast cancer Blind Family/Other Mental health disorder Substance use disorder Social History Social History Housing: Apartment Are you a primary resident care manager to a significant other at home: No Do you presently have visiting nurse or other home services: No Alcohol intake: unknown Patient Tobacco Use Status: Former Tobacco user Quit Date: 1984 Tobacco use type: Cigarette e-Cigarette/Vaping Use: Never Used Second Hand Smoke Exposure: No Advance Directives: No Advance Directives Information Provided: Yes Advance Directives Date on File: 06/08/20 service: No Current occupational status: disabled Cognitive needs: No Hearing needs: No Vision needs: Yes Physical Exam ED Vital Signs: Vital Signs - 24 hr 04/29/22 06:17 04/29/22 09:37 04/29/22 10:14 Temperature 98.0 F 98.4 F Pulse Rate 92 78 76 Respiratory Rate 18 18 16 Blood Pressure 113/72 110/60 97/67 Pulse Oximetry 100 Oxygen Delivery Method Room Air Room Air BMI result Body Mass Index 23.5 VITAL SIGNS: Reviewed. GENERAL: Well developed, well nourished, in no acute distress. HEAD: Normocephalic/atraumatic EYES: PERRLA, EOMI EARS: Ext canals without abnormality OROPHARYNX: no oral lesions noted, posterior pharynx clear LUNGS: Normal breath sounds. No adventitious sounds or accessory muscle use. SpO2<100> CARDIOVASCULAR: Regular rate and rhythm without noted murmurs ABDOMEN: Soft, non-tender, non-distended with bowel sounds, no CVA tenderness MUSCULOSKELETAL: No tenderness, deformities, or effusions noted on gross inspection. EXTREMITIES: No cyanosis, clubbing or edema. SKIN: Inspection of the skin reveals no rashes NEUROLOGIC: Alert and oriented x 4. Course Course Course Narrative: I have no clinical concerns for cauda equina, UTI, renal colic. Patient received Tylenol/ibuprofen and lidocaine I am aware that this patient has had a history of bariatric surgery but this is a 1 time dose of ibuprofen and she was thoroughly instructed by the diplomatic interpreter to use Tylenol and lidocaine primarily and only to use ibuprofen for breakthrough pain. She is otherwise discharged home in stable condition. Medications Administered Discontinued Medications Generic Name Dose Route Start Last Admin Trade Name Freq PRN Reason Stop Dose Admin Acetaminophen 975 mg 04/29/22 09:58 04/29/22 10:12 Acetaminophen 325 Mg Tablet PO 04/29/22 09:59 975 mg ONCE ONE Administration Ibuprofen 400 mg 04/29/22 09:58 04/29/22 10:12 Ibuprofen 400 Mg Tablet PO 04/29/22 09:59 400 mg ONCE ONE Administration Medical Decision Making Medical Decision Making [facility] Narrative: 61-year-old female with presentation of bilateral hip and back pain that is atraumatic in nature and suspect arthritis and overuse. Differential Diagnosis Differential Diagnoses: The differential diagnosis associated with the presentation includes Arthritis, less likely renal colic or UTI. Lab Data [facility] Lab Attestation statement: I reviewed the patient's lab results. Please see the course Section for discussion. Labs: Lab Results 04/29/22 Range/Units 06:53 Urine Color Yellow Urine Appearance Clear Urine pH 6.5 (5.0-9.0) Ur Specific [place] 1.015 (1.005-1.025) Urine Protein Negative (Neg-Trace) mg/dL Urine Glucose (UA) Negative (Negative) mg/dL Urine Ketones Negative (Negative) mg/dL Urine Blood Negative (Negative) Urine Nitrite Negative (Negative) Ur Leukocyte Esterase Negative (Negative) Radiology Impression Radiologist Impression: My interpretation is in agreement with radiology impression regarding imaging studies. Discharge Plan Discharge Clinical Impression: Back pain, Arthritis Patient Disposition: Home, Self-Care Instructions: Back Pain (ED), Osteoarthritis (ED) Additional Instructions: 1. Reanudar todos los medicamentos en el hogar seg?n lo prescrito. 2. Tylenol 1000 mg, por v?a oral, cada 6 horas seg?n sea necesario para controlar el dolor. No exceda los 4000 mg dentro de las 24 horas. 3. Parche de lidoca?na, apl?quelo en el ?jac de m?xima sensibilidad srikanth se indica en el empaque exterior. 4. Para el dolor irruptivo ibuprofeno 400 mg, por v?a oral con leche o alimentos, cada 6 horas seg?n sea necesario para controlar el dolor. 5. Hiram un seguimiento con tomlinson proveedor de atenci?n primaria en los pr?ximos 2 a 3 d?as para jose luis reevaluaci?n y jose luis posible remisi?n a fisioterapia si persisten el dolor de espalda y el dolor de cadera. Regrese a la mario alberto de emergencias si los s?ntomas empeoran. 1. Resume all home medication as prescribed. 2. Tylenol 1000 mg, orally, every 6 hours as needed for pain control. Do not exceed 4000 mg within 24 hours. 3. Lidocaine patch, apply to the area of maximal tenderness as directed on the outside packaging. 4. For breakthrough pain ibuprofen 400 mg, orally with milk or food, every 6 h ours as needed for pain control. 5. Please follow-up with your primary care provider in the next 2-3 days for re- evaluation and possible referral to physical therapy if your back pain and hip pain persist Return to the ER for worsening symptoms. Prescriptions: No Action vitamin A palmitate 10,000 unit capsule 10,000 unit PO DAILY Qty: 30 1RF gabapentin 600 mg tablet 600 mg PO TID 30 Days Qty: 90 8RF gabapentin 400 mg capsule 400 mg PO TID PRN (Reason: pain) MVI (unknown name) PO DAILY Michael +D 2 cap PO DAILY Referrals: Meka Pena MD [Primary Care Provider] - Print Language: Gambian
[2022-04-29] MEDS: Lidocaine 4 % Patch ADH..PATCH 1 PATCH TRANSDERMA (11:10)
--- NOTE | 2022-04-29 11:15 | PC.NURSE ---
pt a&ox3, reporting back pain w movement, lidocaine patch applied to right lower back. discharge instructions reviewed w pt.
== END 2022-04-29 11:16 | disposition home or self-care (01) ==
PROVIDERS: Emergency Provider Student in an Organized Health Care Education/Training Program; PCP Internal Medicine
DX: M54.50 Low back pain, unspecified (principal); M25.552 Pain in left hip; M25.551 Pain in right hip; Z87.891 Personal history of nicotine dependence; Z79.899 Other long term (current) drug therapy
CPT/HCPCS: 73521; 74018; 81003; 99283; 99284

== ENCOUNTER → 2022-05-07 10:15 | Outpatient (BNVA) | payer OTHER, SELFPAY | PROVIDERS: PCP Internal Medicine; Visit Provider Anesthesiology | DX: Z13.89 Encounter for screening for other disorder (principal) ==

== ENCOUNTER 2022-05-22 10:32 | Outpatient (REF) | payer OTHER, SELFPAY ==
[2022-05-22 11:41] LABS: MANUAL DIFF FLAG NO
[2022-05-22 11:48] LABS: Basophils Percent Auto 0.3 % (0-2); Eosinophils Absolute Auto 0.2 X10*3/uL (0.0-0.4); Eosinophils Percent Auto 3.3 % (0-4); Hematocrit 34.2 % (37.0-47.0); Hemoglobin 10.9 g/dl (12.0-16.0); Imm Gran Abs Auto 0.01 X10*3/uL (0.00-0.03); Imm Gran Pct Auto 0.1 % (0.0-0.4); Lymphocytes Absolute Auto 1.6 X10*3/uL (1.2-4.9); Lymphocytes Percent Auto 24.3 % (20-40); Mean Corpuscular HGB Conc 31.9 g/dl (31.0-35.0); Mean Corpuscular Hemoglobin 28.2 pg (27.0-33.0); Mean Corpuscular Volume 88.4 fL (80.0-98.0); Monocytes Absolute Auto 0.6 X10*3/uL (0.1-1.2); Monocytes Percent Auto 8.9 % (2-11); Neutrophils Absolute Auto 4.2 x10*3/uL (2.0-8.3); Neutrophils Percent Auto 63.1 % (45-73); Platelet Count 207 X10*3/uL (160-400); Red Blood Count 3.87 X10*6/uL (4.20-5.50); Red Cell Distribution Width 13.7 % (11.0-16.0); White Blood Count 6.7 X10*3/uL (4.8-10.8)
[2022-05-22 12:23] LABS: C Reactive Protein 1.29 mg/dL (< or = 0.50)
[2022-05-22 12:27] LABS: Erythrocyte Sedimentation Rate 31 MM/HR (0-20)
[2022-05-22 14:38] LABS: Total Protein Urine Random < 7 mg/dL (<12)
[2022-05-27 10:59] LABS: Vitamin A 31 mcg/dL (38-98)
== END 2022-05-22 10:33 | disposition home or self-care (01) ==
LOC: HO.LAB 10:32
PROVIDERS: Physician Assistant Surgical; PCP Internal Medicine; Visit Provider Internal Medicine Rheumatology
DX: E50.9 Vitamin A deficiency, unspecified (principal); R76.8 Other specified abnormal immunological findings in serum; M43.06 Spondylolysis, lumbar region
CPT/HCPCS: 36415; 84156; 84590; 85025; 85652; 86140; 99212

== ENCOUNTER → 2022-05-23 09:09 | Outpatient (BNVA) | payer OTHER, SELFPAY | PROVIDERS: PCP Internal Medicine; Visit Provider Physician Assistant Surgical | DX: Z98.84 Bariatric surgery status (principal) | CPT/HCPCS: 99212 ==

== ENCOUNTER 2022-06-03 08:46 | Outpatient (REF) | payer OTHER, SELFPAY ==
[2022-06-03 08:59] LABS: MANUAL DIFF FLAG NO
[2022-06-03 09:19] LABS: Basophils Percent Auto 0.4 % (0-2); Eosinophils Absolute Auto 0.3 X10*3/uL (0.0-0.4); Eosinophils Percent Auto 4.8 % (0-4); Hematocrit 33.6 % (37.0-47.0); Hemoglobin 10.6 g/dl (12.0-16.0); Imm Gran Abs Auto 0.01 X10*3/uL (0.00-0.03); Imm Gran Pct Auto 0.2 % (0.0-0.4); Lymphocytes Absolute Auto 1.2 X10*3/uL (1.2-4.9); Lymphocytes Percent Auto 22.1 % (20-40); Mean Corpuscular HGB Conc 31.5 g/dl (31.0-35.0); Mean Corpuscular Hemoglobin 27.3 pg (27.0-33.0); Mean Corpuscular Volume 86.6 fL (80.0-98.0); Mean Platelet Volume 9.7 fL (9.4-12.3); Monocytes Absolute Auto 0.4 X10*3/uL (0.1-1.2); Monocytes Percent Auto 8.1 % (2-11); Neutrophils Absolute Auto 3.4 x10*3/uL (2.0-8.3); Neutrophils Percent Auto 64.4 % (45-73); Platelet Count 360 X10*3/uL (160-400); Red Blood Count 3.88 X10*6/uL (4.20-5.50); Red Cell Distribution Width 14.2 % (11.0-16.0); White Blood Count 5.2 X10*3/uL (4.8-10.8)
[2022-06-03 09:58] LABS: Iron 65 mcg/dL (30-160); Percent Iron Saturation 22 % (15-50); Total Iron Binding Capacity 289 mcg/dL (228-428); Unsaturated Iron Binding 224 ug/dL
[2022-06-03 10:21] LABS: Vitamin B12 1103 pg/mL (200-900)
[2022-06-05 11:14] LABS: Haptoglobin 182 mg/dL (43-212)
== END 2022-06-03 08:47 | disposition home or self-care (01) ==
LOC: HO.LAB 08:46
PROVIDERS: PCP Internal Medicine; Visit Provider Internal Medicine Rheumatology
DX: D64.9 Anemia, unspecified (principal)
CPT/HCPCS: 36415; 82607; 83010; 83540; 85025

== ENCOUNTER 2022-07-02 10:32 | Outpatient (REF) | payer OTHER, SELFPAY ==
--- NOTE | ~2022-07-02 | MM_ITS ---
EXAMINATION: MM SCREENING DIGITAL BREAST TOMOSYNTHESIS, BILATERAL CLINICAL INFORMATION: Screening. Asymptomatic. Intentional 70 pound weight loss since prior mammography (bariatric surgery). The lifetime risk of breast cancer based on the Tyrer-Cuzick Model is 5%. COMPARISON: Mammography: 01/25/2019, 07/23/2016 TECHNIQUE: Digital breast tomosynthesis is performed in both the craniocaudal and mediolateral oblique views along with computer-aided detection (CAD). Synthesized 2D images are generated from the tomosynthesis. FINDINGS: There are scattered areas of fibroglandular density (ACR BI-RADS breast composition Category b). There are no significant masses, abnormal calcifications, or other abnormalities. The breasts are symmetrically smaller consistent with the intentional weight loss. No developing density or architectural abnormality. No significant changes. MM/MM tomosynthesis screening BI IMPRESSION: No mammographic evidence of malignancy. ASSESSMENT: BI-RADS 2: Benign RECOMMENDATION: Routine annual mammography screening. This patient's information was entered into a reminder system with a target due date for their next mammogram.
--- NOTE | ~2022-07-02 | MM_ITS ---
EXAMINATION: BONE DENSITOMETRY CLINICAL INDICATION: Menopause. COMPARISON: Baseline BD dated 01/25/2019. TECHNIQUE: Using a [employer] DXA System (software version: 13.1) manufactured by [employer], dual-energy x-ray absorptiometry was performed of the lumbar spine and left hip. The images are of good technical quality. Summary results are attached. FINDINGS: AP SPINE L1-L4: Current: BMD 0.978 g/cm2, Z-score -0.3, T-score -1.7, osteopenia, 21.8% decrease from baseline (<5% change is not significant). Baseline: BMD 1.251 g/cm2. LEFT FEMUR, NECK: Current: BMD 0.818 g/cm2, Z-score -0.2, T-score -1.6, osteopenia. Baseline: BMD 0.912 g/cm2. LEFT FEMUR, TOTAL: Current: BMD 0.805 g/cm2, Z-score -0.5, T-score -1.6, osteopenia, 13.9% decrease from baseline (<5% change is not significant). Baseline: BMD 0.935 g/cm2. IDENTIFIED RISK FACTORS: Menopause, height loss, family history (parent hip fracture), secondary osteoporosis. HISTORY OF FRACTURE: None listed. MEDICATIONS: Calcium, vitamin D. MM/XR DEXA axial skeleton IMPRESSION: 1. DIAGNOSIS: Osteopenia based on the lowest T-score value of -1.7 in the lumbar spine applying World Health Organization criteria. 2. 10-YEAR FRACTURE RISK PREDICTION, FRAX: Major osteoporotic fracture (clinical spine, forearm, hip or shoulder) 9.7%. Hip fracture 0.5%. 3. Treatment Recommendations: NOF guidelines recommend consideration for treatment in postmenopausal women and men age 50 and older presenting with the following: -A hip or vertebral (clinical or morphometric) fracture. -T-score less than or equal to -2.5 at the femoral neck or spine after appropriate evaluation to exclude secondary causes. -Low bone mass at the hip or spine and a 10-year fracture probability by FRAX of greater than or equal to 3% for hip fracture or greater than or equal to 20% for major osteoporotic fracture based on the [place] adapted WHO algorithm. 4. Other Recommendations: All treatment decisions require clinical judgment and consideration of individual patient factors, including patient preferences, comorbidities, previous drug use, risk factors not captured in the FRAX model (e.g. frailty, falls, vitamin D deficiency, increased bone turnover, interval significant decline in bone density) and possible under or overestimation of fracture risk by FRAX. Additional medical evaluation for secondary cause of low bone mineral density may be appropriate. FUTURE SCAN RECOMMENDATION: People with diagnosed cases of osteoporosis or at high risk for fracture should have regular bone mineral density tests. For patients eligible for Medicare, routine testing is allowed once every 2 years. The testing frequency can be increased to one year for patients who have rapidly progressing disease, those who are receiving or discontinuing medical therapy to restore bone mass, or have additional risk factors.
== END 2022-07-02 10:33 | disposition home or self-care (01) ==
LOC: HO.MAMMO 10:32
PROVIDERS: PCP Internal Medicine; Visit Provider Internal Medicine
DX: Z12.31 Encounter for screening mammogram for malignant neoplasm of breast (principal); Z13.820 Encounter for screening for osteoporosis; N95.9 Unspecified menopausal and perimenopausal disorder
CPT/HCPCS: 77063; 77067; 77080

== ENCOUNTER → 2022-07-11 09:10 | Outpatient (BNVA) | payer OTHER, SELFPAY | PROVIDERS: PCP Internal Medicine; Visit Provider Dietitian, Registered | DX: E66.9 Obesity, unspecified (principal); Z90.3 Acquired absence of stomach [part of]; Z68.23 Body mass index [BMI] 23.0-23.9, adult | CPT/HCPCS: 97803 ==

== ENCOUNTER → 2022-10-16 08:46 | Outpatient (BNVA) | payer OTHER, SELFPAY | PROVIDERS: PCP Internal Medicine; Visit Provider Internal Medicine Rheumatology | DX: M19.041 Primary osteoarthritis, right hand (principal); M19.042 Primary osteoarthritis, left hand; M43.06 Spondylolysis, lumbar region; M77.12 Lateral epicondylitis, left elbow; M79.671 Pain in right foot; M35.01 Sjogren syndrome with keratoconjunctivitis | CPT/HCPCS: 99212 ==

== ENCOUNTER 2022-10-17 08:41 | Outpatient (REF) | payer OTHER, SELFPAY ==
--- NOTE | ~2022-10-17 | XR_ITS ---
EXAMINATION: XR FOOT, RIGHT CLINICAL INFORMATION: Right foot pain. COMPARISON: None available. TECHNIQUE: AP, lateral, and oblique views of the right foot. FINDINGS: Examination demonstrates moderate osteoarthritis of the first MTP joint, with joint space narrowing, sclerosis, and osteophyte formation. There may be mild degenerative changes of the second through fifth interphalangeal joints. Plantar and Achilles calcaneal spurs. The joint spaces otherwise appear maintained. No fracture or dislocation is seen. Bony mineralization appears preserved. No lytic or sclerotic bony lesion is appreciated. No ankle joint effusion identified. XR/XR foot RT min 3V IMPRESSION: Degenerative changes.
--- NOTE | ~2022-10-17 | XR_ITS ---
EXAMINATION: XR ELBOW, LEFT CLINICAL INFORMATION: Lateral left elbow epicondylitis. COMPARISON: None available. TECHNIQUE: AP, lateral, and oblique views of the left elbow. FINDINGS: The bones and soft tissues appear unremarkable. No fracture or joint effusion identified. Alignment is anatomic. Joint spaces appear maintained. XR/XR elbow LT min 3V IMPRESSION: Normal plain film examination of the left elbow.
[2022-10-17 09:43] LABS: Erythrocyte Sedimentation Rate 11 MM/HR (0-20)
[2022-10-17 09:47] LABS: Anion Gap 12 (12-20); Blood Urea Nitrogen 13 mg/dL (9-16); C Reactive Protein 0.18 mg/dL (< or = 0.50); Calcium 10.1 mg/dL (8.4-10.2); Carbon Dioxide 29 mmol/L (22-29); Chloride 107 mmol/L (96-108); Estimated Glomerular Filt Rate > 60; Glucose Random 87 mg/dL (60-115); Sodium 143 mmol/L (135-145)
[2022-10-17 10:02] LABS: Creatinine Urine 31.05 mg/dL; Total Protein Urine Random < 7 mg/dL (<12)
== END 2022-10-17 08:42 | disposition home or self-care (01) ==
LOC: HO.LAB 08:41
PROVIDERS: Visit Provider Internal Medicine Rheumatology
DX: M35.00 Sjogren syndrome, unspecified (principal); M79.671 Pain in right foot; M77.12 Lateral epicondylitis, left elbow
CPT/HCPCS: 36415; 73080; 73630; 80048; 84156; 85652; 86140

== ENCOUNTER → 2022-10-30 13:15 | Outpatient (BNVA) | payer OTHER, SELFPAY | PROVIDERS: PCP Internal Medicine; Visit Provider Dietitian, Registered | DX: E66.01 Morbid (severe) obesity due to excess calories (principal); Z68.23 Body mass index [BMI] 23.0-23.9, adult; Z90.3 Acquired absence of stomach [part of] | CPT/HCPCS: 97803 ==

== ENCOUNTER 2022-11-13 11:23 | Outpatient (AMB) | payer OTHER, SELFPAY ==
[2022-11-13 11:35] VITALS: BP 128/64; PULSE 65; TEMP 36.6; O2SAT 100; BMI 25.7
--- NOTE | 2022-11-13 11:35 | A.OFFVIS_ITS ---
Intake Vital Signs 11/13/22 11:35 Height 5 ft 4 in Weight 149 lb 11.102 oz BMI 25.7 BP 128/64 Blood Pressure Location Rt brachial Position Sitting Pulse 65 Pulse Source Pulse Oximeter Temp 97.8 F Temp Source Skin Pulse Oximetry (%) 100 Intake Visit Reasons: joint pain Intake Note: Pt seen today for joint pain follow up. C/o bl hand pain, tingling and numbing. Customer Success Specialist Required: Yes Customer Success Specialist Language: Brick And Tile Making Machine Operator Name: Ashli [id number] Information Interpreted: clinical only Accompanied by: Self / Same As Patient Allergies morphine Allergy (Intermediate, Verified 11/13/22 11:39) dizzy,sick amoxicillin [AMOXICILLIN] Allergy (Mild, Verified 11/13/22 11:39) GENERALIZED SWELLING & ITCHY RASH, swelling, rash,diff. breathing HPI HPI Comments History of Present Illness Details The patient returns complaining of bilateral hand pain and numbness. The history and physical are facilitated through the use of the iPad translating service. She had been hair last month with some foot pain and elbow pains. The elbow seems to be a bit better. She notes more pain in the fingers when she is more active. She also gets nocturnal paresthesias and occasional paresthesias in all the fingertips. This is more prominent on the right. She does not recall previous episodes of such numbness. She still has some back pain as well. At her last visit we started set of cevimeline for her sicca symptoms. She takes 30 mg once or twice a day but only on days when she feels more symptomatic. She feels it is helpful. [facility] Medical History (Updated 11/13/22 @ 14:08 by Barry Dale MD) Acquired spondylolysis of lumbar spine ANURADHA positive Anxiety Arthritis Chronic fatigue Chronic pain syndrome Depression Dizziness Essential hypertension Fatty liver GERD (gastroesophageal reflux disease) Hx of Sjogren's disease Hyperparathyroidism Hypertension Moderate recurrent major depression Morbid obesity On beta maye at home Postlaminectomy syndrome of lumbar region Primary osteoarthritis of hands, bilateral Right shoulder pain Sjogrens syndrome SS-A antibody positive Surgical History History of surgery History of tubal ligation Hx of bariatric surgery Hx of section Hx of colonoscopy Hx of esophagogastroduodenoscopy Family History Father No problems noted. Mother Hypertension Bone cancer Sister Breast cancer Blind Family/Other Mental health disorder Substance use disorder Social History Housing: Apartment Are you a primary career specialist to a significant other at home: No Do you presently have visiting nurse or other home services: No Alcohol intake: never Patient Tobacco Use Status: Former Tobacco user Quit Date: 1984 Tobacco use type: Cigarette e-Cigarette/Vaping Use: Never Used Second Hand Smoke Exposure: No Advance Directives Date on File: 06/08/20 service: No Current occupational status: disabled Cognitive needs: No Hearing needs: No Vision needs: Yes Review of Systems Const Details: Negative for appetite change, weight change, fever, chills, malaise and fatigue Eyes Details: Negative for vision change, dry eyes,headaches and dizziness ENT Details: Negative for hearing change, tinnitus, oral ulcer, nose bleeds and oral dryness. Card Details: Negative chest pain, edema and syncope Resp Details: Negative for SOB, cough and wheezing GI Details: Negative indigestion/heartburn, nausea, abdominal pain, bowel changes, diarrhea, constipation and bloody stool. Skin/Breast Details: Negative for itching, rash, hives, Raynaud's symptoms, sun sensitivity, and skin cancer Neuro Details: Episodic hand numbness as noted above. Negative for epilepsy, palsy, stroke, changes in speech, and weakness Rober/Lymph Details: Negative for excessive bruising or bleeding. Physical Exam Vital Signs: Last Vital Signs Temp 97.8 F 11/13/22 11:35 Pulse 65 11/13/22 11:35 BP 128/64 11/13/22 11:35 Pulse Ox 100 11/13/22 11:35 BMI result Body Mass Index 25.7 APPEARANCE: Patient in no acute distress EYES no redness, pupils equal and reactive to light, eyelids normal. No temporal artery tenderness, redness or swelling. EXTREMITIES: No edema, no calf tenderness, normal peripheral pulses. SKIN: No inflammatory or neoplastic lesions. Normal color and turgor JOINT EXAM: Cervical Spine:.? Full range of motion without pain; no tenderness. Thoracic Spine:.? No scoliosis.? No tenderness on palpation. Lumbar Spine:.? Alignment normal.? Moderate pain with more than 45 degrees flexion or any attempts at extension.? Straight leg raising causes low back pain at 60 degrees.? There is some lumbar paraspinal muscle tenderness. Chest Wall:.? No tenderness, swelling, increased warmth or erythema. Hands:? Right:? There is no tenderness or swelling of the MCP joints. She has some minimal bony enlargement at the thumb IP and in all of the PIP joints.? The thumb IP and 2nd 3rd PIP joints are mildly tender.? There is no flexor tendon triggering, thenar atrophy or sensory loss.? The distal IP joints have slight swelling at the 2nd, 3rd, and 5th digits.? These are also slightly tender.? Left:? Mild bony enlargement and tenderness at the thumb IP.? There is similar bony enlargement at the distal IP joints numbers 2, 3 and 5.? The 2nd DIP Was slightly tender.? There is no flexor tendon triggering, thenar atrophy or sensory loss.? Wrists:.? Normal pain-free range of motion with slight tenderness but no swelling, increased warmth or erythema.? Positive Phalen's sign on the right. Elbows:? Left:? Normal pain-free range of motion. There is some slight lateral epicondylar tenderness but no tenderness or swelling over the joint space.? Right:? Normal pain-free range of motion without tenderness, swelling, increased warmth or erythema. Shoulders:.?? Full range of motion without pain. No tenderness, weakness, swelling, increased warmth or erythema. Hips:.? Full range of motion with some lumbar pains with extremes of internal or external rotation.? No groin pain with motion.? No inguinal tenderness or mass.. Hip bursa:.? No tenderness. Knees:?? Normal pain-free range of motion with mild patellofemoral crepitus.? No effusion, tenderness, swelling, increased warmth or erythema.? Ankles:? Normal pain-free range of motion without tenderness, swelling, increased warmth or erythema. Feet:.? Right: There is mild tenderness and slight bony enlargement at the 1st MTP joint. There is no tenderness or swelling elsewhere in the foot. Left: Normal pain-free range of motion without tenderness, swelling, increased warmth or erythema. Tender points:? Mild tenderness to digital palpation at the? trapezius, second rib,? knees, greater trochanter area bilaterally. ? Results Reviewed Results Reviewed: [address] [address] XRay Report Signed Patient: Abida Nava MR#: [id number] : 1960 Acct:[id number] Age/Sex: 62 / F ADM Date: 10/17/[address]: Barry Dale MD Ordering Physician: Barry Dale MD Date of Service: 10/17/22 Procedure(s): XR foot RT min 3V Accession Number(s): [id number] cc: Barry Dale MD~ EXAMINATION: XR FOOT, RIGHT CLINICAL INFORMATION: Right foot pain.? COMPARISON: None available.? TECHNIQUE: AP, lateral, and oblique views of the right foot. FINDINGS: Examination demonstrates moderate osteoarthritis of the first MTP joint, with joint space narrowing, sclerosis, and osteophyte formation. There may be mild degenerative changes of the second through fifth interphalangeal joints. Plantar and Achilles calcaneal spurs. The joint spaces otherwise appear maintained. No fracture or dislocation is seen. Bony mineralization appears preserved. No lytic or sclerotic bony lesion is appreciated. No ankle joint effusion identified. XR/XR foot RT min 3V IMPRESSION: ? Degenerative changes. Dictated By: Evelio Adhikari Signed By: <Electronically signed by Evelio? Onofre? Assessment & Plan Assessment & Plan (1) Bilateral hand numbness: Code(s): R20.0 - Anesthesia of skin (2) Osteoarthritis of hands, bilateral: Code(s): M19.041 - Primary osteoarthritis, right hand; M19.042 - Primary osteoarthritis, left hand (3) Osteoarthritis of foot, right: Code(s): M19.071 - Primary osteoarthritis, right ankle and foot (4) Postlaminectomy syndrome of lumbar region: Code(s): M96.1 - Postlaminectomy syndrome, not elsewhere classified (5) Sjogrens syndrome: Code(s): M35.00 - Sjogren syndrome, unspecified Qualifiers: Sjogren's organ involvement: keratoconjunctivitis Qualified Code(s): M35.01 - Sicca syndrome with keratoconjunctivitis Plan She has signs on exam of some osteoarthritis in the interphalangeal joints in the hands. This is more prominent in the right hand. The right hand is experiencing more numbness episodes than the left and there was a positive Phalen's test there. This is likely carpal tunnel syndrome. She gives a history that the symptoms have only been there for a month so I do not think nerve conduction studies would be worthwhile to do right now. I did issue her a prescription for wrist splints to wear nightly for 6 weeks. If the symptoms of numbness continue after the six weeks, she should call us and we could arrange nerve conduction studies. She also has some pain in the right 1st MTP where x- rays have shown osteoarthritis as well. She has longstanding low back pain with previous laminectomy consistent with degenerative disease and osteoarthritis. She is less symptomatic with the oral dryness of Sjogren's using the cevimeline so I think that can be continued as needed. We will not book rheumatology follow-up at this point. I think the PCP could continue the cevimeline if needed. She will call us if the hand numbness continues. Today's history and exam and discussion of the x-rays took 42 minutes. Medications: New arm brace (Wrist Brace) As directed 2 ea 0RF R20.0 - Anesthesia of skin Quality Reporting (2019) Adult ([facility] 138/06/25/68) Smoking risk assessment performed?: Yes Patient Tobacco Use Status: Former Tobacco user Coding Level of Care Code Est Pt Level 5 (36557) Diagnoses Bilateral hand numbness R20.0 Osteoarthritis of hands, bilateral M19.041; M19.042 Osteoarthritis of foot, right M19.071 Postlaminectomy syndrome of lumbar region M96.1 Sjogrens syndrome M35.01 Sjogren's organ involvement: keratoconjunctivitis
== END 2022-11-13 12:46 | disposition home or self-care (01) ==
PROVIDERS: PCP Internal Medicine; Visit Provider Internal Medicine Rheumatology
DX: R20.0 Anesthesia of skin (principal); M19.041 Primary osteoarthritis, right hand; M19.042 Primary osteoarthritis, left hand; M19.071 Primary osteoarthritis, right ankle and foot; M96.1 Postlaminectomy syndrome, not elsewhere classified; M35.01 Sjogren syndrome with keratoconjunctivitis
CPT/HCPCS: 99214

== ENCOUNTER → 2022-11-13 11:23 | Outpatient (BNVA) | payer OTHER, SELFPAY | PROVIDERS: PCP Internal Medicine; Visit Provider Internal Medicine Rheumatology | DX: R20.0 Anesthesia of skin (principal); M19.041 Primary osteoarthritis, right hand; M19.042 Primary osteoarthritis, left hand; M19.071 Primary osteoarthritis, right ankle and foot; M96.1 Postlaminectomy syndrome, not elsewhere classified; M35.01 Sjogren syndrome with keratoconjunctivitis | CPT/HCPCS: 99212 ==

== ENCOUNTER 2022-12-02 10:24 | Outpatient (AMB) | payer OTHER, SELFPAY ==
--- NOTE | 2022-12-02 10:26 | MHC.OFFVIS ---
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 Scribed for SHARMAINE Toro by Yara Devlin medical clerk, on 12/02/2022 at 10:50 am EST. Pinion Polisher Required: Yes Pinion Polisher Language: Regional Sales Executive Name: Jolie CORTES Information Interpreted: non-clinical & clinical Speech Lang Path: Speech Lang Path Present (Jolie) Allergies morphine Allergy (Intermediate, Verified 12/02/22 10:28) dizzy,sick amoxicillin [AMOXICILLIN] Allergy (Mild, Verified 12/02/22 10:28) GENERALIZED SWELLING & ITCHY RASH, swelling, rash,diff. breathing HPI HPI Comments History of Present Illness Details She is a postmenopausal woman presenting for annual exam. Doing well with no state historical society director concerns. Patient admits she tries to eat a healthy diet including Calcium and Vitamin D. She stays active with exercise. Occasionally sexually active. No PMB. Denies vaginal itching and irritation. STD screening offered; she accepts. Denies family hx of colon and ovarian cancer. Last pap smear 02/27/14 Last mammogram 07/02/22 Colonoscopy scheduled fo4 12/11/22. [facility] Medical History Acquired spondylolysis of lumbar spine ANURADHA positive Anxiety Arthritis Chronic fatigue Chronic pain syndrome Depression Dizziness Essential hypertension Fatty liver GERD (gastroesophageal reflux disease) Hx of Sjogren's disease Hyperparathyroidism Hypertension Moderate recurrent major depression Morbid obesity On beta maye at home Postlaminectomy syndrome of lumbar region Primary osteoarthritis of hands, bilateral Right shoulder pain Sjogrens syndrome SS-A antibody positive Surgical History History of surgery History of tubal ligation Hx of bariatric surgery Hx of section Hx of colonoscopy Hx of esophagogastroduodenoscopy Family History Father No problems noted. Mother Hypertension Bone cancer Sister Breast cancer Blind Family/Other Mental health disorder Substance use disorder Social History Housing: Apartment Are you a primary med care manager to a significant other at home: No Do you presently have visiting nurse or other home services: No Alcohol intake: never Patient Tobacco Use Status: Former Tobacco user Quit Date: 1984 Tobacco use type: Cigarette e-Cigarette/Vaping Use: Never Used Second Hand Smoke Exposure: No Advance Directives Date on File: 06/08/20 service: No Current occupational status: disabled Cognitive needs: No Hearing needs: No Vision needs: Yes Female Reproductive History Menstrual control method: permanent sterilization Permanent Sterilization: BTL Total pregnancies: 4 Full term: 4 Number of Living Children: 4 Date of last pap smear: 02/27/14 (neg) Date of Mammogram: 07/02/22 Physical Exam Vital Signs: Last Vital Signs BP 110/72 12/02/22 10:28 BMI result Body Mass Index 25.1 Const General: cooperative, healthy appearing, no acute distress, well developed and alert Orientation/consciousness: patient oriented x3 HEENT Head: Yes normal to inspection Eyes General: appearance normal, both eyes and all related structures Neck Neck: Yes normal visual inspection Thyroid: Thyroid normal Chest Chest palpation & inspection: normal inspection of the chest Breast/axilla inspection: normal inspection of the breasts (no puckering, dimpling, peau de orange, retraction, discharge, masses) Breast/axilla palpation: normal palpation of the breasts Resp Effort & Inspection: normal respiratory effort GI Inspection: Yes normal to inspection Palpation (GI): Soft to palpation (to palpation) Rectal Exam - Female: deferred Other: small appearing cervical polyp measuring a few mm. General: Yes bladder normal to inspection External Female Exam: normal external appearance and normal appearance of the urethra Speculum Exam - Vagina: normal appearance of the vagina, normal palpation and vagina atrophic Speculum Exam - Cervix: normal appearance of the cervix, normal palpation and Other cervical findings present (bled slightly with pap) Bimanual exam- vagina & uterus: normal palpation and normal palpation Bimanual Exam- Adnexa, other: normal adnexae and no masses Skin General skin exam: no rashes or lesions noted Neuro General: patient oriented x3 Cognition (Neuro): normal cognition Extrem General: Yes normal to inspection Psych Attitude: cooperative Thought process: Normal thought process present Assessment & Plan Assessment & Plan (1) Encounter for well woman exam: Code(s): Z01.419 - Encounter for gynecological examination (general) (routine) without abnormal findings Plan: Discussed: Current recommendations for pap smears per ASCCP guidelines. Breast awareness and periodic self breast exams. Encouraged yearly mammograms. Maintaining a healthy lifestyle including a well balanced diet including Calcium and Vitamin D and routine exercise. Pelvic US regarding cervical polyp. Follow up in person for results/?removal same day. GC/CT panel done today. Await results and treat accordingly. Contact office with any PMB. All of her questions and concerns were addressed to the best of my ability RTO in 1 year for AG. (2) Potential exposure to STD: Code(s): Z20.2 - Contact with and (suspected) exposure to infections with a predominantly sexual mode of transmission (3) Cervical polyp: Code(s): N84.1 - Polyp of cervix uteri Orders: Orders US pelvic and transvaginal Today N84.1 - Polyp of cervix uteri CT NG by PCR Today Z20.2 - Contact with and (suspected) exposure to infections with a predominantly sexual mode of transmission Pap Smear Today Z01.419 - Encounter for gynecological examination (general) (routine) without abnormal findings Quality Reporting (2019) Adult ([facility] 138/2/) Smoking risk assessment performed?: Yes Patient Tobacco Use Status: Former Tobacco user Coding Level of Care Code New Pt Prev Care 40-64y(89704) Diagnoses Encounter for well woman exam Z01.419 Potential exposure to STD Z20.2 Cervical polyp N84.1
[2022-12-02 10:28] VITALS: BP 110/72; BMI 25.1
== END 2022-12-02 11:05 | disposition home or self-care (01) ==
LOC: HO.HWS 10:24
PROVIDERS: PCP Internal Medicine; Visit Provider Advanced Practice Midwife
DX: Z01.419 Encounter for gynecological examination (general) (routine) without abnormal findings (principal); Z20.2 Contact with and (suspected) exposure to infections with a predominantly sexual mode of transmission; N84.1 Polyp of cervix uteri
CPT/HCPCS: 99386

== ENCOUNTER 2022-12-02 10:24 | Outpatient (REF) | payer OTHER, SELFPAY ==
[2022-12-09 06:34] LABS: HPV mRNA E6/E7 rflx Not Detected (Not Detected)
== END 2022-12-02 10:25 | disposition home or self-care (01) ==
LOC: HO.LNP 10:24
PROVIDERS: PCP Internal Medicine; Visit Provider Advanced Practice Midwife
DX: Z01.419 Encounter for gynecological examination (general) (routine) without abnormal findings (principal); Z11.51 Encounter for screening for human papillomavirus (HPV); Z20.2 Contact with and (suspected) exposure to infections with a predominantly sexual mode of transmission; N84.1 Polyp of cervix uteri
CPT/HCPCS: 87624; 88142

== ENCOUNTER 2022-12-02 15:58 | Outpatient (REF) | payer OTHER, SELFPAY ==
[2022-12-03 04:21] LABS: CT PCR NOT DETECTED (Not Detect.); NG PCR NOT DETECTED (Not Detect.)
== END 2022-12-02 15:59 | disposition home or self-care (01) ==
LOC: HO.LNP 15:58
PROVIDERS: Visit Provider Advanced Practice Midwife
DX: Z20.2 Contact with and (suspected) exposure to infections with a predominantly sexual mode of transmission (principal)
CPT/HCPCS: 0353U

== ENCOUNTER 2022-12-18 10:26 | Outpatient (REF) | payer OTHER, SELFPAY ==
--- NOTE | ~2022-12-18 | US_ITS ---
EXAMINATION: US PELVIS COMPLETE CLINICAL INFORMATION: Polyp COMPARISON: CT abdomen pelvis 09/20/2021 TECHNIQUE: Transabdominal and transvaginal imaging was performed. FINDINGS: The uterus is of normal size measuring 7.6 x 2.7 x 3.7 cm. Echogenic myometrial foci may reflect shadowing vascular calcifications. A regular homogeneous endometrium is identified measuring 0.2 cm. A tiny 0.5 cm intramural myoma in the anterior body of the uterus. The cervix is unremarkable. Both ovaries are of normal size and echogenicity. The right measures 1.6 x 1.1 x 1.0 cm for a volume of 1.0 mL. The left measures 1.8 x 1.0 x 0.8 cm for a volume of 0.8 mL. There is a dystrophic left ovarian calcification. A 1.5 x 1.2 x 1.3 cm mixed solid and cystic mass in the left adnexa without definite internal vascularity. There is no pelvic free fluid. US/US pelvic and transvaginal IMPRESSION: 1. A 1.5 cm indeterminate mixed solid and cystic mass in the left adnexa without definite internal vascularity. Recommend further characterization with contrast-enhanced MR pelvis or surgical evaluation. 2. A 0.5 cm intramural myoma in the anterior body of the uterus. The report will be called to the ordering clinician by a [place] Radiology Physician Central Aisle Cashier.
== END 2022-12-18 10:27 | disposition home or self-care (01) ==
LOC: HO.US 10:26
PROVIDERS: PCP Internal Medicine; Visit Provider Advanced Practice Midwife
DX: N84.1 Polyp of cervix uteri (principal)
CPT/HCPCS: 76830; 76856

== ENCOUNTER 2022-12-24 11:28 | Outpatient (AMB) | payer OTHER, SELFPAY ==
--- NOTE | 2022-12-24 11:29 | A.OFFVIS_ITS ---
Intake Vital Signs 12/24/22 11:30 Height 5 ft 4 in Weight 146 lb BMI 25.1 BP 120/72 Intake Visit Reasons: U/S results per BM Intake Note: The patient agreed to use of a medical resident during this encounter. Scribed for SHARMAINE Toro by Yara Devlin medical resident, on 12/24/2022 at 11:44 am EST. Structural Layout Worker Required: Yes Structural Layout Worker Language: Cruise Consultant Name: Jolie CORTES Information Interpreted: non-clinical & clinical Allergies morphine Allergy (Intermediate, Verified 12/24/22 11:33) dizzy,sick amoxicillin [AMOXICILLIN] Allergy (Mild, Verified 12/24/22 11:33) GENERALIZED SWELLING & ITCHY RASH, swelling, rash,diff. breathing Post menopausal: Yes HPI HPI Comments History of Present Illness Details She is here to discuss US results regarding abnormal findings. Denies implanted device, pacemaker, diabetes, kidney disease or allergies to contrast dyes. Reports occasional VB during intercourse and occasional right sided pelvic pain due to constipation. [facility] Medical History (Updated 12/24/22 @ 13:56 by Jessica Ponce CNM) Acquired spondylolysis of lumbar spine ANURADHA positive Anxiety Arthritis Chronic fatigue Chronic pain syndrome Depression Dizziness Essential hypertension Fatty liver GERD (gastroesophageal reflux disease) Hx of Sjogren's disease Hyperparathyroidism Hypertension Moderate recurrent major depression Morbid obesity Myoma On beta maye at home Ovarian mass, left Postlaminectomy syndrome of lumbar region Primary osteoarthritis of hands, bilateral Right shoulder pain Sjogrens syndrome SS-A antibody positive Vaginal bleeding Surgical History History of surgery History of tubal ligation Hx of bariatric surgery Hx of section Hx of colonoscopy Hx of esophagogastroduodenoscopy Family History Father No problems noted. Mother Hypertension Bone cancer Sister Breast cancer Blind Family/Other Mental health disorder Substance use disorder Social History Housing: Apartment Are you a primary palliative care nurse to a significant other at home: No Do you presently have visiting nurse or other home services: No Alcohol intake: never Patient Tobacco Use Status: Former Tobacco user Quit Date: 1984 Tobacco use type: Cigarette e-Cigarette/Vaping Use: Never Used Second Hand Smoke Exposure: No Advance Directives Date on File: 06/08/20 service: No Current occupational status: disabled Cognitive needs: No Hearing needs: No Vision needs: Yes Physical Exam Vital Signs: Last Vital Signs BP 120/72 12/24/22 11:30 BMI result Body Mass Index 25.1 Const General: cooperative, healthy appearing, comfortable, no acute distress, well developed, alert and awake Results Reviewed Results Reviewed: DD/ TD/TT: / EXAMINATION: US PELVIS COMPLETE CLINICAL INFORMATION: Polyp COMPARISON: CT abdomen pelvis 09/20/2021 TECHNIQUE: Transabdominal and transvaginal imaging was performed. FINDINGS: The uterus is of normal size measuring 7.6 x 2.7 x 3.7 cm. Echogenic myometrial foci may reflect shadowing vascular calcifications. A regular homogeneous endometrium is identified measuring 0.2 cm. A tiny 0.5 cm intramural myoma in the anterior body of the uterus. The cervix is unremarkable. Both ovaries are of normal size and echogenicity. The right measures 1.6 x 1.1 x 1.0 cm for a volume of 1.0 mL. The left measures 1.8 x 1.0 x 0.8 cm for a volume of 0.8 mL. There is a dystrophic left ovarian calcification. A 1.5 x 1.2 x 1.3 cm mixed solid and cystic mass in the left adnexa without definite internal vascularity. There is no pelvic free fluid. US/US pelvic and transvaginal IMPRESSION: 1.? A 1.5 cm indeterminate mixed solid and cystic mass in the left adnexa without definite internal vascularity. Recommend further characterization with contrast-enhanced MR pelvis or surgical evaluation. 2.? A 0.5 cm intramural myoma in the anterior body of the uterus. ? Assessment & Plan Assessment & Plan (1) Encounter to discuss test results: Code(s): Z71.2 - Person consulting for explanation of examination or test findings Plan: Discussed: US results: 1.? A 1.5 cm indeterminate mixed solid and cystic mass in the left adnexa without definite internal vascularity. Recommend further characterization with contrast-enhanced MR pelvis or surgical evaluation. 2.? A 0.5 cm intramural myoma in the anterior body of the uterus. All of her questions and concerns were addressed to the best of my ability and shared decision making. She is agreeable to plan of care. (2) Myoma: Code(s): D21.9 - Benign neoplasm of connective and other soft tissue, unspecified (3) PCB (post coital bleeding): Code(s): N93.0 - Postcoital and contact bleeding Plan: Informed due to aging, atrophic changes, the vaginal lining thins out which can make it fragile, smaller and dryer, which can leads to bleeding and injury at times during intimacy. Recommend using Replens, [place] jelly, Astroglide or coconut oil products for vaginal dryness. If no improvement to return for further evaluation. Report any PMB. (4) Ovarian mass, left: Code(s): N83.8 - Other noninflammatory disorders of ovary, fallopian tube and broad ligament Plan: Counseled re: left ovarian mass, which may be benign, pre-malignant or malignant. Further evaluation is suggested with a MRI, obtain prior auth. and scheduled. Follow in person for results. Consider Locomotive Engineer Electric/Onc referral if solid/complex mass for possible surgical excision. CA 125 Orders: Orders MR pelvis wo/w con Today N83.8 - Other noninflammatory disorders of ovary, fallopian tube and broad ligament CA-125 Today N83.299 - Other ovarian cyst, unspecified side Quality Reporting (2019) Adult ([facility] ) Smoking risk assessment performed?: Yes Patient Tobacco Use Status: Former Tobacco user Coding Level of Care Code Est Pt Level 3 (79555) Diagnoses Encounter to discuss test results Z71.2 Myoma D21.9 PCB (post coital bleeding) N93.0 Ovarian mass, left N83.8
[2022-12-24 11:30] VITALS: BP 120/72; BMI 25.1
== END 2022-12-24 14:02 | disposition home or self-care (01) ==
LOC: HO.HWS 11:28
PROVIDERS: PCP Internal Medicine; Visit Provider Advanced Practice Midwife
DX: Z71.2 Person consulting for explanation of examination or test findings (principal); D21.9 Benign neoplasm of connective and other soft tissue, unspecified; N93.0 Postcoital and contact bleeding; N83.8 Other noninflammatory disorders of ovary, fallopian tube and broad ligament
CPT/HCPCS: 99213

== ENCOUNTER → 2022-12-24 11:28 | Outpatient (BNVA) | payer OTHER, SELFPAY | PROVIDERS: PCP Internal Medicine; Visit Provider Advanced Practice Midwife | DX: Z71.2 Person consulting for explanation of examination or test findings (principal); D25.1 Intramural leiomyoma of uterus; N93.0 Postcoital and contact bleeding; N83.8 Other noninflammatory disorders of ovary, fallopian tube and broad ligament | CPT/HCPCS: 99212 ==

== ENCOUNTER 2023-02-17 09:29 | Outpatient (REF) | payer OTHER, SELFPAY ==
--- NOTE | ~2023-02-17 | MR_ITS ---
EXAMINATION: MR PELVIS WITHOUT AND WITH CONTRAST CLINICAL INFORMATION: Intermittent pelvic pain. Left ovarian in determinate mixed solid-cystic mass found on ultrasound of the pelvis. COMPARISON: Ultrasound examination of the pelvis on 12/18/2022 TECHNIQUE: Examination was performed in a high field strength MRI scanner. Pre-contrast multiplanar multisequence MR imaging of the pelvis was performed without IV contrast enhancement. Post-contrast axial T1 weighted fat suppressed images of the pelvis were obtained after IV injection of 6.5 mL Gadavist. FINDINGS: Uterus is anteverted, measuring 5.6 cm in vertical height, 2.6 cm in AP diameter, 5.4 cm in width. Endometrial stripe is normal in thickness. Left ovary is seen in anterior left pelvic cavity, measuring 1.5 cm in AP diameter, 1.0 cm in width, 2.0 cm in vertical height. No focal lesion with abnormal signal or enhancement could be seen. A T1 hyperintense encapsulated nonenhancing lesion with markedly suppressed signal on fat-saturated sequence is seen protruding from anterior border medial portion of left broad ligament, measuring 1.1 cm in AP diameter, 1.6 cm in width, 1.3 cm in vertical height. Right ovary cannot be positively identified. Urinary bladder is well filled with urine. Pelvic fat plane is clean. No pelvic ascites is seen. No abnormally enlarged iliac or inguinal lymph nodes are found. The pelvis and bilateral hips are intact. Bilateral femoral heads and necks show normal signal without focal lesion. No abnormal joint effusion can be seen. The visualized bony pelvis show normal signal. Bilateral sacroiliac joints also appear unremarkable. A T2 hyperintense simple cyst is seen in posterior mid left renal cortex measuring 1.5 cm in diameter, for which no follow up imaging is recommended. MR/MR pelvis wo/w con IMPRESSION: 1. A lipomatous lesion is seen protruding from anterior medial left broad ligament. 2. No focal lesion could be found in the left ovary and uterus. 3. Unable to identify the right ovary.
[2023-02-17] MEDS: gadobutroL 7.5 ML VIAL IVPUSH (11:03)
== END 2023-02-17 09:30 | disposition home or self-care (01) ==
LOC: HO.MRI 09:29
PROVIDERS: PCP Internal Medicine; Visit Provider Internal Medicine
DX: N83.8 Other noninflammatory disorders of ovary, fallopian tube and broad ligament (principal)
CPT/HCPCS: 72197; A9585

== ENCOUNTER 2023-02-27 07:30 | Outpatient (REF) | payer OTHER, SELFPAY ==
[2023-02-28 12:13] LABS: CA-125 8 U/mL (<35); Carbohydrate Antigen 19-9 25 U/mL (<34)
== END 2023-02-27 07:31 | disposition home or self-care (01) ==
LOC: HO.LAB 07:30
PROVIDERS: PCP Internal Medicine; Visit Provider Advanced Practice Midwife
DX: N83.299 Other ovarian cyst, unspecified side (principal); N83.8 Other noninflammatory disorders of ovary, fallopian tube and broad ligament; Z71.2 Person consulting for explanation of examination or test findings
CPT/HCPCS: 36415; 82378; 86301; 86304; 99212

== ENCOUNTER 2023-02-27 07:30 | Outpatient (AMB) | payer OTHER, SELFPAY ==
--- NOTE | 2023-02-27 07:37 | MHC.OFFVIS ---
Intake Vital Signs 02/27/23 07:41 Height 5 ft 4 in Weight 145 lb 8.081 oz BMI 25.0 BP 124/72 Intake Visit Reasons: MRI results/[facility] Intake Note: The patient agreed to use of a pesticide use medical coordinator during this encounter. Scribed for SHARMAINE Toro by Angelina Marquez pesticide use medical coordinator, on 02/26/2023 at 7:45 am EST Commercial Reporter Required: Yes Commercial Reporter Language: Diving Instructor Name: Jolie CORTES Information Interpreted: non-clinical & clinical Accompanied by: Son Allergies morphine Allergy (Intermediate, Verified 02/27/23 07:37) dizzy,sick amoxicillin [AMOXICILLIN] Allergy (Mild, Verified 02/27/23 07:37) GENERALIZED SWELLING & ITCHY RASH, swelling, rash,diff. breathing Post menopausal: Yes HPI HPI Comments History of Present Illness Details She presents to discuss MRI results. She is accompanied by her son. Admits to occasional left sided pain, comes and goes. [facility] Medical History (Updated 12/24/22 @ 13:56 by Jessica Ponce CNM) Ovarian mass, left Vaginal bleeding Myoma Hx of Sjogren's disease GERD (gastroesophageal reflux disease) Hyperparathyroidism Moderate recurrent major depression Morbid obesity Right shoulder pain Acquired spondylolysis of lumbar spine Dizziness Chronic fatigue Essential hypertension Chronic pain syndrome Postlaminectomy syndrome of lumbar region Sjogrens syndrome Primary osteoarthritis of hands, bilateral ANRUADHA positive SS-A antibody positive Fatty liver Arthritis Anxiety Depression On beta maye at home Hypertension Surgical History Hx of bariatric surgery Hx of colonoscopy Hx of esophagogastroduodenoscopy Hx of section History of surgery History of tubal ligation Family History Father No problems noted. Mother Hypertension Bone cancer Sister Breast cancer Blind Family/Other Mental health disorder Substance use disorder Social History Housing: Apartment Are you a primary primary care coordinator to a significant other at home: No Do you presently have visiting nurse or other home services: No Alcohol intake: never Patient Tobacco Use Status: Former Tobacco user Quit Date: 1984 Tobacco use type: Cigarette e-Cigarette/Vaping Use: Never Used Second Hand Smoke Exposure: No Advance Directives Date on File: 06/08/20 service: No Current occupational status: disabled Cognitive needs: No Hearing needs: No Vision needs: Yes Review of Systems Const All systems reviewed & are unremarkable except as noted in HPI and below Physical Exam Vital Signs: Last Vital Signs BP 124/72 02/27/23 07:41 BMI result Body Mass Index 25.0 Const General: cooperative, healthy appearing, no acute distress, well developed and alert Results Reviewed Results Reviewed: MRI FINDINGS: Uterus is anteverted, measuring 5.6 cm in vertical height, 2.6 cm in AP diameter, 5.4 cm in width. Endometrial stripe is normal in thickness. Left ovary is seen in anterior left pelvic cavity, measuring 1.5 cm in AP diameter, 1.0 cm in width, 2.0 cm in vertical height. No focal lesion with abnormal signal or enhancement could be seen. A T1 hyperintense encapsulated nonenhancing lesion with markedly suppressed signal on fat-saturated sequence is seen protruding from anterior border medial portion of left broad ligament, measuring 1.1 cm in AP diameter, 1.6 cm in width, 1.3 cm in vertical height. Right ovary cannot be positively identified. Urinary bladder is well filled with urine. Pelvic fat plane is clean. No pelvic ascites is seen. No abnormally enlarged iliac or inguinal lymph nodes are found. The pelvis and bilateral hips are intact. Bilateral femoral heads and necks show normal signal without focal lesion. No abnormal joint effusion can be seen. The visualized bony pelvis show normal signal. Bilateral sacroiliac joints also appear unremarkable. A T2 hyperintense simple cyst is seen in posterior mid left renal cortex measuring 1.5 cm in diameter, for which no follow up imaging is recommended. IMPRESSION: 1. A lipomatous lesion is seen protruding from anterior medial left broad ligament. 2. No focal lesion could be found in the left ovary and uterus. 3. Unable to identify the right ovary. US FINDINGS: The uterus is of normal size measuring 7.6 x 2.7 x 3.7 cm. Echogenic myometrial foci may reflect shadowing vascular calcifications. A regular homogeneous endometrium is identified measuring 0.2 cm. A tiny 0.5 cm intramural myoma in the anterior body of the uterus. The cervix is unremarkable. Both ovaries are of normal size and echogenicity. The right measures 1.6 x 1.1 x 1.0 cm for a volume of 1.0 mL. The left measures 1.8 x 1.0 x 0.8 cm for a volume of 0.8 mL. There is a dystrophic left ovarian calcification. A 1.5 x 1.2 x 1.3 cm mixed solid and cystic mass in the left adnexa without definite internal vascularity. There is no pelvic free fluid. IMPRESSION: 1. A 1.5 cm indeterminate mixed solid and cystic mass in the left adnexa without definite internal vascularity. Recommend further characterization with contrast-enhanced MR pelvis or surgical evaluation. 2. A 0.5 cm intramural myoma in the anterior body of the uterus. Assessment & Plan Assessment & Plan (1) Ovarian mass, left: Code(s): N83.8 - Other noninflammatory disorders of ovary, fallopian tube and broad ligament Plan: Reviewed test results with patient and son. Counseled on complex cysts/lipomas and reassured patient that these are mostly benign but some can be premalignant/malignant requiring further surveillance and workup including Ca125, CEA and CA19-9, and surgical consultation if indicated at [facility]. Advised to get work up done today. All of her questions and concerns were addressed to the best of my ability and she is agreeable to plan of care. RTO for test results and plan of care next week. (2) Encounter to discuss test results: Code(s): Z71.2 - Person consulting for explanation of examination or test findings Orders: Orders Carbohydrate Antigen 19-9 Today N83.8 - Other noninflammatory disorders of ovary, fallopian tube and broad ligament Carcinoembryonic Antigen Today N83.8 - Other noninflammatory disorders of ovary, fallopian tube and broad ligament Quality Reporting (2020) Adult ([facility] 138/06/25/68) Smoking risk assessment performed?: Yes Patient Tobacco Use Status: Former Tobacco user Coding Level of Care Code Est Pt Level 3 (11375) Diagnoses Ovarian mass, left N83.8 Encounter to discuss test results Z71.2
[2023-02-27 07:41] VITALS: BP 124/72; BMI 25.0
== END 2023-02-27 11:22 | disposition home or self-care (01) ==
PROVIDERS: PCP Internal Medicine; Visit Provider Advanced Practice Midwife
DX: N83.8 Other noninflammatory disorders of ovary, fallopian tube and broad ligament (principal); Z71.2 Person consulting for explanation of examination or test findings
CPT/HCPCS: 99213

== ENCOUNTER → 2023-03-06 09:03 | Outpatient (BNVA) | payer OTHER, SELFPAY | PROVIDERS: PCP Internal Medicine; Visit Provider Advanced Practice Midwife ==

== ENCOUNTER 2023-04-17 13:15 | Outpatient (AMB) | payer OTHER, SELFPAY ==
--- NOTE | 2023-04-17 13:04 | MHC.AMNUTRGE ---
Intake Intake Visit Reasons: VIDEO PO LSG 05/22/21 Senior Catering Sales Manager Required: Yes Senior Catering Sales Manager Name: francois [id number] Information Interpreted: non-clinical & clinical Allergies morphine Allergy (Intermediate, Verified 03/06/23 09:04) dizzy,sick amoxicillin [AMOXICILLIN] Allergy (Mild, Verified 03/06/23 09:04) GENERALIZED SWELLING & ITCHY RASH, swelling, rash,diff. breathing HPI Nutrition Presentation Details LSG 05/22/[address] Minor Preop weight 05/17/21 193# weight 11 WKS PO 165# weight (09/18) 153# weight 12/24 133# Weight at 1 year appt 137# Weight at 14MO PO 139# currnet weight at 18MO PO 138# She saw Cristina HOYT for her 1 year appointment Reason for consult elevated BMI Diet Assmnt Details almost 2 years post op 10am breakfast shake Orgain with almond milk 12pm ukrainian yogurt with fruit 2pm protein bar 6pm dinner 3oz protein and vegetables Pt reports she has no questions, doing very well, feeling great. Recipe resources ideas to increase food variety Exercise: gym 5x per week 30 minutes on the treadmill, plus 15 minutes leg workouts, or arms taking celebrate MVI and calcium Monitoring/Goals Nutrition problem monitoring total energy intake, level of knowledge/skill, total PRO intake, total CHO intake, weight and oral fluids Outcome progress progressing Learning/Education Readiness to learn excellent Stages of change action Educational materials provided Yes Most Recent Diabetes Results: No Data to Display [facility] Medical History (Updated 12/24/22 @ 13:56 by Jessica Ponce CNM) Ovarian mass, left Vaginal bleeding Myoma Hx of Sjogren's disease GERD (gastroesophageal reflux disease) Hyperparathyroidism Moderate recurrent major depression Morbid obesity Right shoulder pain Acquired spondylolysis of lumbar spine Dizziness Chronic fatigue Essential hypertension Chronic pain syndrome Postlaminectomy syndrome of lumbar region Sjogrens syndrome Primary osteoarthritis of hands, bilateral ANURADHA positive SS-A antibody positive Fatty liver Arthritis Anxiety Depression On beta maye at home Hypertension Surgical History Hx of bariatric surgery Hx of colonoscopy Hx of esophagogastroduodenoscopy Hx of section History of surgery History of tubal ligation Family History Father No problems noted. Mother Hypertension Bone cancer Sister Breast cancer Blind Family/Other Mental health disorder Substance use disorder Social History Housing: Apartment Are you a primary healthcare facility administrator to a significant other at home: No Do you presently have visiting nurse or other home services: No Alcohol intake: never Patient Tobacco Use Status: Former Tobacco user Quit Date: 1984 Tobacco use type: Cigarette e-Cigarette/Vaping Use: Never Used Second Hand Smoke Exposure: No Advance Directives Date on File: 06/08/20 service: No Current occupational status: disabled Cognitive needs: No Hearing needs: No Vision needs: Yes Assessment & Plan Assessment & Plan (1) History of sleeve gastrectomy: Code(s): Z90.3 - Acquired absence of stomach [part of] Plan Next appointment to be with PA for routine 2 year postop. Then she will resume follow-up with me 3 months later. Provided recipe resources and ideas for meals and culturally appropriate seasonings Telehealth Telehealth Location of provider rendering services: practice address Location of patient: address on file Patient Identification confirmed using: Name, : Yes Telehealth method: voice only Patient verbally consented to treatment: Yes Patient verbally consented to billing insurance company: Yes Patient informed of any privacy concerns related to visit: Yes Minutes spent on Phone/Video with Pt.: 18 Coding Level of Care Code Nutr Indiv Subseq (27183) Diagnoses History of sleeve gastrectomy Z90.3 Time Spent (min) 18
== END 2023-04-17 13:17 | disposition home or self-care (01) ==
LOC: HO.HBS 13:15
PROVIDERS: PCP Internal Medicine; Visit Provider Dietitian, Registered
DX: Z90.3 Acquired absence of stomach [part of] (principal)

== ENCOUNTER → 2023-04-17 13:15 | Outpatient (BNVA) | payer OTHER, SELFPAY | PROVIDERS: PCP Internal Medicine; Visit Provider Dietitian, Registered | DX: Z90.3 Acquired absence of stomach [part of] (principal) | CPT/HCPCS: 97803 ==

== ENCOUNTER 2023-06-09 09:54 | Outpatient (AMB) | payer OTHER, SELFPAY ==
--- NOTE | 2023-06-09 10:09 | MHC.PC.OV ---
Vital Signs 06/09/23 10:10 Height 5 ft 4 in Weight 160 lb BMI 27.5 BP 124/80 Blood Pressure Location Lt brachial Position Sitting Intake Visit Reasons: PE Intake Note: Patient here for a physical exam Metal Drill Operator Required: No Accompanied by: Self / Same As Patient Allergies morphine Allergy (Intermediate, Verified 06/09/23 10:31) dizzy,sick amoxicillin [AMOXICILLIN] Allergy (Mild, Verified 06/09/23 10:31) GENERALIZED SWELLING & ITCHY RASH, swelling, rash,diff. breathing Medication List - Last Reconciled 06/09/23 by Meka Nguyễn MD arm brace (Wrist Brace) As directed [Michael +D 2 caps PO DAILY] diclofenac sodium 1% 2 grams topical BID gabapentin 600 mg PO TID 30 days multivitamin 1 tab PO DAILY Tobacco use date assessed: 06/09/23 Dental Screening Dental Screen Date: 06/09/23 Did you have a dental visit in the last 12 months?: Yes Did you have a dental problem in the last 6 months where you did not have access to dental care?: No Was dental information given to patient?: Patient has dentist HPI HPI Comments History of Present Illness Details This is a 63-year-old female that comes for her physical exam. Mammogram done July 2022 and has an appointment scheduled for next month. Pap smear done 2022 and had a hysterectomy last month for benign reasons. Last colonoscopy was 2012 with hyperplastic polyps noted and will be refer through open access for another colonoscopy. Last bone density was July 2022 showing osteopenia and she is currently on treatment with calcium and vitamin-D. Next bone density is 2024. Complains of insomnia and would like medication. Also has venous insufficiency and would like to see vascular surgeon for it. [facility] Medical History (Updated 06/09/23 @ 10:58 by Meka Nguyễn MD) Ovarian mass, left Vaginal bleeding Myoma Hx of Sjogren's disease GERD (gastroesophageal reflux disease) Hyperparathyroidism Moderate recurrent major depression Morbid obesity Right shoulder pain Acquired spondylolysis of lumbar spine Dizziness Chronic fatigue Essential hypertension Chronic pain syndrome Postlaminectomy syndrome of lumbar region Sjogrens syndrome Primary osteoarthritis of hands, bilateral MEKA positive SS-A antibody positive Fatty liver Arthritis Anxiety Depression On beta maye at home Hypertension Surgical History History of total hysterectomy Hx of bariatric surgery Hx of colonoscopy Hx of esophagogastroduodenoscopy Hx of section History of surgery History of tubal ligation Family History Father No problems noted. Mother Hypertension Bone cancer Sister Breast cancer Blind Family/Other Mental health disorder Substance use disorder Social History Housing: Apartment Are you a primary child care worker to a significant other at home: No Do you presently have visiting nurse or other home services: No Alcohol intake: never Patient Tobacco Use Status: Former Tobacco user Quit Date: 1984 Tobacco use type: Cigarette e-Cigarette/Vaping Use: Never Used Second Hand Smoke Exposure: No Advance Directives Date on File: 06/08/20 service: No Current occupational status: disabled Cognitive needs: No Hearing needs: No Vision needs: Yes Questionnaire PHQ-9 Over the last 2 weeks, how often have you been bothered by any of the following problems? 1. Little interest or pleasure in doing things: not at all 2. Feeling down, depressed, or hopeless: not at all 3. Trouble falling or staying asleep, or sleeping too much: not at all 4. Feeling tired or having little energy: not at all 5. Poor appetite or overeating: not at all 6. Feeling bad about yourself - or that you are a failure or have let yourself or your family down: not at all 7. Trouble concentrating on things, such as reading the newspaper or watching television: not at all 8. Moving or speaking so slowly that other people could have noticed. Or the opposite - being so fidgety or restless that you have been moving around a lot more than usual: not at all 9. Thoughts that you would be better off or of hurting yourself in some way: not at all Total score: 0 Depression Screening Interpretation: Negative Depression Screening Done: Yes 00010 - PHQ-9 Billing: Yes Source: Developed by Drs. Chad Randall, Juhi Bunch, Manjeet Gooden and colleagues, with an educational mayra from [employer]. Thrive Questionnaire Date Thrive assessed: 06/09/23 I am a: Patient What is your living situation today?: I have a steady place to live Within the past 12 months, did the food you bought not last and you didn't have the money to get more?: Never true Within the past 12 months, did you worry whether your food would run out before you got money to buy more?: Never true Do you have trouble paying for medicines?: No Do you have trouble getting transportation to medical appointments?: No Do you have trouble paying your heating and electricity bill?: No Do you have trouble taking care of your child, family member or friend?: No Do you have trouble with day-to-day activities such as bathing, preparing meals, shopping, managing finances, etc.?: No Are you currently unemployed and looking for a job?: No Are you interested in more education?: No Please select the resources that you would like help with: None Currently or been in a relationship where the following occur: no concerns reported THRIVE Score: 0 AUDIT C Alcohol Use Questionnaire (AUDIT-C) 1. How often do you have a drink containing alcohol?: Never Total Score: 0 JAMES-7 AMB Questionnaire JAMES-7 Date JAMES - 7 assessed: 06/09/23 Feeling nervous, anxious, or on edge: 0 = Not at all Not being able to stop or control worryin = Not at all Worrying too much about different things: 0 = Not at all Trouble relaxin = Not at all Being so restless that it is hard to sit still: 0 = Not at all Becoming easily annoyed or irritable: 0 = Not at all Feeling afraid as if something awful might happen: 0 = Not at all Total JAMES-7 score (0-4 normal; 5-9 mild; 10-14 moderate; 15-21 severe): 0 Source: Developed by Drs. Chad Randall, Juhi Bunch, Manjeet Gooden and colleagues, with an educational mayra from [employer]. JAMES-7 Assessment Billing JAMES-7 Assessment Tool: JAMES-7 Assessment 59548 Review of Systems Const All systems reviewed & are unremarkable except as noted in HPI and below Eyes Reports no additional complaints, Denies change in vision and Denies other visual disturbances Card Denies chest pain at rest, Denies chest pain with activity, Denies edema, Denies irregular heart rhythm, Denies claudication, Denies dyspnea, Denies dyspnea on exertion, Denies orthopnea, Denies paroxysmal nocturnal dyspnea and Denies slow heart rate Resp Denies cough, Denies dyspnea and Denies dyspnea on exertion GI Denies abdominal pain, Denies change in bowel habits, Denies excessive flatus, Denies nausea and Denies vomiting Denies urinary incontinence, Denies urinary hesitancy and Denies urinary urgency Musc Denies abnormal gait, Denies atrophy, Denies deformity and Denies limited range of motion Skin/Breast Denies bleeding lesions, Denies changing lesions and Denies rash Neuro Denies abnormal gait, Denies behavioral changes, Denies confusion and Denies lack of coordination Psych Denies behavioral changes and Denies confusion Physical exam (Primary Care) Vital Signs: Last Vital Signs BP 124/80 06/09/23 10:10 BMI result Body Mass Index 27.5 Tobacco/Smoking Status: Tobacco use Status Tobacco use date assessed 06/09/23 06/09/23 10:20 Patient Tobacco Use Status Former Tobacco user 06/09/23 10:14 Tobacco use type Cigarette 06/09/23 10:14 e-Cigarette/Vaping Use Never Used 06/09/23 10:14 PHQ-9: PHQ-9 Score PHQ-9: Total score 0 06/09/23 10:56 Depression Screening Interpretation: Negative Thrive Assessment: Date of Thrive Assessment Date Thrive assessed 06/09/23 06/09/23 10:14 Currently or been in a relationship where the following occur: no concerns reported Const General: No confusion Orientation/consciousness: patient oriented x3 and No confusion HENMT Head: Yes normal to inspection, Yes normocephalic and Yes atraumatic Ears: external ears normal Eyes General: appearance normal, both eyes and all related structures Eyelids: Yes eyelids normal Conjunctivae: conjunctivae normal Neck Neck: Yes normal visual inspection and Yes supple Resp Effort & Inspection: normal respiratory effort Auscultation: clear to auscultation bilaterally Cardio Jugular venous distension: no JVD Rate: regular rate Rhythm: regular rhythm Heart sounds: S1 normal heart sound present and S2 normal heart sound present GI Inspection: Yes normal to inspection Palpation (GI): Soft to palpation and nontender Auscultation: normal bowel sounds Skin General skin exam: no rashes or lesions noted Neuro General: patient oriented x3, no focal motor deficits and No confusion Extrem General: Yes full ROM Psych Appearance: grossly normal Office Procedures Flu Questionnaire Does the patient have a severe egg allergy?: No Does the patient have severe life threatening allergies?: No Does the patient have a fever or illness today?: No Has the patient ever had Guillain-Essie Syndrome?: No Has the patient ever had any past reaction to a flu shot?: No Immunizations flu vacc [id number] 6mos up(PF) 60 mcg(15 mcgx4)/0.5 mL IM syringe Performing Provider: Meka Nguyễn MD Performing Location: [facility] Administered by: SOPHIA Esquivel on 06/09/23 10:49 Dose Route Admin Location Dispensed Lot Number Expiration Date NDC [employer] 0.5 mL IM Left Deltoid 0.5 mL [id number] 11/01/23 05950-204-83 [employer] VIS Given Date VIS Provided VIS Publication Date 06/09/23 Single Vaccine 20 Eligibility Eligibility Date Funding Source Not C Eligible 06/09/23 Private Assessment and Plan Assessment & Plan (1) Physical exam: Code(s): Z00.00 - Encounter for general adult medical examination without abnormal findings Plan: Repeat in a year. Orders: Orders Influenza [id number] Immunization Today Z23 - Encounter for immunization IRON PROFILE Today D64.9 - Anemia, unspecified Vitamin D 25-OH Total Today E55.9 - Vitamin D deficiency, unspecified Calcium, Ionized Today E21.3 - Hyperparathyroidism, unspecified Lipid Panel Today Z00.00 - Encounter for general adult medical examination without abnormal findings Complete Blood Count Auto Diff Today D64.9 - Anemia, unspecified Parathyroid Hormone Intact Today E21.3 - Hyperparathyroidism, unspecified Comprehensive Perry. Panel Fast Today E21.3 - Hyperparathyroidism, unspecified Referrals Vascular Surgery Referral I87.2 - Venous insufficiency (chronic) (peripheral) Open Access Screening Colonoscopy Referral Z12.11 - Encounter for screening for malignant neoplasm of colon Medications: New trazodone 50 mg PO BEDTIME PRN 30 tabs 2RF sleep 30 days G47.00 - Insomnia, unspecified Coding Level of Care Code Est Pt Prev Care 40-64y(97482) Diagnoses Physical exam Z00.00 Additional Codes JAMES-7 Assessment Billing - JAMES-7 Assessment Tool: JAMES-7 Assessment 92107 ([id number]) Time Spent (min) 34
[2023-06-09 10:10] VITALS: BP 124/80; BMI 27.5
== END 2023-06-09 10:51 | disposition home or self-care (01) ==
PROVIDERS: Visit Provider Internal Medicine
DX: Z00.00 Encounter for general adult medical examination without abnormal findings (principal); Z23 Encounter for immunization
CPT/HCPCS: 90471; 90686; 99396

== ENCOUNTER 2023-09-30 13:41 | Outpatient (AMB) | payer OTHER, SELFPAY ==
--- NOTE | 2023-09-30 13:42 | MHC.OFFVIS ---
Vital Signs 09/30/23 13:46 Height 5 ft 4 in Weight 152 lb BMI 26.1 BP 142/74 H Blood Pressure Location Lt brachial Position Sitting Respiration 16 Pulse 70 Pulse Source Pulse Oximeter Pulse Oximetry (%) 100 Oxygen Delivery Method Room Air Intake Visit Reasons: last seen 05/07/22 Medication review Intake Note: Patient comes in to review medication. Reports pain 810. Allergies morphine Allergy (Intermediate, Verified 09/30/23 13:46) dizzy,sick amoxicillin [AMOXICILLIN] Allergy (Mild, Verified 09/30/23 13:46) GENERALIZED SWELLING & ITCHY RASH, swelling, rash,diff. breathing HPI Comments Details: Abida is in the office today to discuss medical pain management with gabapentin. In the past she was under interventional pain management she received diagnostic medial branch blocks with good results and we were considering sprint PNS when her insurance company denied the procedure on the ground that sprint PNS is experimental procedure. She did not change her insurance. I started her on gabapentin 600 mg t.i.d. she reports that this dose of medication helps her pain in significant extent however when the action of medication expires in about 4-5 hours she feels her pain getting stronger. She denies side effects of gabapentin, she denies depression, somnolence sleepiness, peripheral edema. I recommended the patient to increase the dose of gabapentin to 800 mg t.i.d.. I will increase the dose and I will see her for the new refill in 9 months. In the past she received bilateral L3-L4 does ramus L5 diagnostic medial branch block with lidocaine on 08/08/2021.? She reports overall pain improvement.? She said that she had 100% pain improvement immediately after procedure for the 1st 8 hours.? She reports for the pain improvement going down the road because she was starting to do aerobic exercises and she was taking gabapentin.? However now her pain is onset of the cold weather came back with the full strength.? She is here to discuss possibility of further treatment of her condition.? I offered her sprint procedure and she agreed to go forward.? I will do bilateral L5 PNS for this ?complains on lower back pain with radiation into lower extremities.? She is suffering from postlaminectomy syndrome.? She received caudal epidural steroid injection in June of 2020 and she reported 80% of pain relief for 1 month.? After that pain started gradually to come back. She received another Caudal IFEOMA with the catheter in the beginning in September. She reports good pain relieve at rest but pain is exacerbated by movement and walking.? I suspect there is significant facet joint component and her pain.? I discussed with her possibility of doing medial branch block after I reviewed x-ray of her lower back which is dictated as below.? I will do this procedure without sedation.? I will schedule it accordingly.? She also reports that gabapentin is helping her pain.? She used to be on 300 mg 3 times a day.? [facility] Medical History (Updated 06/09/23 @ 10:58 by Meka Nguyễn MD) Ovarian mass, left Vaginal bleeding Myoma Hx of Sjogren's disease GERD (gastroesophageal reflux disease) Hyperparathyroidism Moderate recurrent major depression Morbid obesity Right shoulder pain Acquired spondylolysis of lumbar spine Dizziness Chronic fatigue Essential hypertension Chronic pain syndrome Postlaminectomy syndrome of lumbar region Sjogrens syndrome Primary osteoarthritis of hands, bilateral MEKA positive SS-A antibody positive Fatty liver Arthritis Anxiety Depression On beta maye at home Hypertension Surgical History History of total hysterectomy Hx of bariatric surgery Hx of colonoscopy Hx of esophagogastroduodenoscopy Hx of section History of surgery History of tubal ligation Family History Father No problems noted. Mother Hypertension Bone cancer Sister Breast cancer Blind Family/Other Mental health disorder Substance use disorder Social History Housing: Apartment Are you a primary career development coordinator/teacher to a significant other at home: No Do you presently have visiting nurse or other home services: No Alcohol intake: never Patient Tobacco Use Status: Former Tobacco user Quit Date: 1984 Tobacco use type: Cigarette e-Cigarette/Vaping Use: Never Used Second Hand Smoke Exposure: No Advance Directives Date on File: 06/08/20 service: No Current occupational status: disabled Cognitive needs: No Hearing needs: No Vision needs: Yes Review of Systems Const All systems reviewed & are unremarkable except as noted in HPI and below ENT Reports Normal hearing present Neuro Reports Normal hearing present, Denies Abnormal speech present, Denies confusion and Denies Sensory deficit (Neuro) Psych Denies confusion Physical Exam Vital Signs: Last Vital Signs Pulse 70 09/30/23 13:46 Resp 16 09/30/23 13:46 BP 142/74 H 09/30/23 13:46 Pulse Ox 100 09/30/23 13:46 Oxygen Delivery Method Room Air 09/30/23 13:46 BMI result Body Mass Index 26.1 Const General: no acute distress; No confusion Nutritional Appearance: obese morbidly obese Orientation/consciousness: patient oriented x3 and No confusion Eyes General: appearance normal, both eyes and all related structures Pupils: Equal, round and reactive pupils present EOM: EOMs intact bilaterally Neck Neck: Yes full ROM Chest Chest palpation & inspection: normal inspection of the chest Resp Effort & Inspection: normal respiratory effort, able to speak in complete sentences, normal respiratory pattern, no audible wheezes and no cough Cardio Jugular venous distension: no JVD GI Inspection: Yes normal to inspection Back/Spine/Pelvis Other: There is a very well-healed scar in the posterior lumbar spine delineating previous surgery. The scar is very well-healed. Loading test is positive bilaterally. Flexing forward and flexing backwards aggravate her pain however flexing backwards aggravates her pain more than flexing forward. Neuro General: patient oriented x3, gait normal and No confusion Cranial nerves: Yes CN's II-XII intact bilaterally, Yes Equal, round and reactive pupils present, Yes Normal hearing present and Yes Ability to bilaterally elevate shoulders present Speech: No Abnormal speech present Gait exam (Neuro): Normal gait present Motor exam (neuro): 5/5 motor strength present throughout Sensory Exam: No Sensory deficit (Neuro) Extrem General: No pedal edema Psych Speech and movement: Normal speech and movement present Affect: normal affect Attitude: cooperative Thought process: Normal thought process present Thought content: Normal thought content present Insight: Good insight present (Psych) Judgement: Good judgement present (Psych) Quality Reporting (2019) Adult ([facility] 138/2/) Smoking risk assessment performed?: Yes Patient Tobacco Use Status: Former Tobacco user Assessment & Plan Assessment & Plan (1) Postlaminectomy syndrome of lumbar region: Code(s): M96.1 - Postlaminectomy syndrome, not elsewhere classified Category: Medical (2) Chronic pain syndrome: Code(s): G89.4 - Chronic pain syndrome Category: Medical Plan In the past I have offered this patient spinal cord stimulation trial however she adamantly refused. Caudal IFEOMA with catheter relieves her pain temporarily. Second IFEOMA with catheter relieved her pain even less than the 1st procedure. L3-L4 does ramus L5 diagnostic resulted in pain improvement 8 hours of pain relief on lidocaine without any steroids. This is very good results. However her insurance company denied sprint procedure for her. Therefore she is on continuous medical pain management. She reports gabapentin helps her pain however not long enough. I decided to increase today the dose of her gabapentin to 800 mg t.i.d.. She denies side effects. She denies depression, sleepiness, somnolence, dizziness and drowsiness, peripheral edema. Next appointment is as needed or when this prescription with refills will . Medications: New gabapentin 800 mg PO TID 30 days 90 tabs 8RF Discontinued gabapentin Discontinued Reason: Doctor's Order 600 mg PO TID 30 days 90 tabs 8RF Coding Level of Care Code Est Pt Level 3 (09102) Diagnoses Postlaminectomy syndrome of lumbar region M96.1 Chronic pain syndrome G89.4
[2023-09-30 13:46] VITALS: BP 142/74; PULSE 70; RESP 16; O2SAT 100; BMI 26.1
== END 2023-09-30 13:55 | disposition home or self-care (01) ==
PROVIDERS: PCP Internal Medicine; Visit Provider Anesthesiology
DX: G89.4 Chronic pain syndrome (principal); M96.1 Postlaminectomy syndrome, not elsewhere classified
CPT/HCPCS: 99213

== ENCOUNTER → 2023-09-30 13:41 | Outpatient (BNVA) | payer OTHER, SELFPAY | PROVIDERS: PCP Internal Medicine; Visit Provider Anesthesiology | DX: M96.1 Postlaminectomy syndrome, not elsewhere classified (principal); G89.4 Chronic pain syndrome | CPT/HCPCS: 99212 ==

== ENCOUNTER 2024-05-05 14:10 | Outpatient (REF) | payer OTHER, SELFPAY ==
--- NOTE | ~2024-05-05 | US_ITS ---
CLINICAL HISTORY: N20.0 - Calculus of kidney US renal Comparison: None Findings: Right kidney 10.5 cm length. No significant focal abnormality. Renal sinus fat interface measured in upper pole. No shadowing echogenic focus is identified. Left kidney 10.1 cm length. No significant focal abnormality. 1.2 cm midpole cyst. No bilateral hydronephrosis. Normal bilateral renal echogenicity. Impression: No significant abnormalities. This document has been electronically signed by: Andi Black MD on 05/10/2024 20:22:42
--- OUTSIDE RECORDS SUMMARY | 2024-05-05 15:37 | XMS_ITS | Continuity of Care Document ---
Author Organization [facility] Address [address] [place] [address] [address] MD Maria De Jesus [phone] Phone Care Team Providers Care Bark Press Operator Name Role Phone Gus Mitchell MD, FACS, RVT Unavailable Unavailable Advance Directives Directive Yes / No Effective Date File Name No Information Encounters Encounter Description Practice Location Reason(s) For Visit Diagnoses Date Provider Providers Copied on Encounter [facility], [address] [place] [address] [address], [place] Maria De Jesus, [id number], tel:[phone] [facility] No Information 4 Hema BUSTOS FACS SUSANNE Zavaleta. [address] [address], [place], [address], [place]. tel:[phone] Family History Family Member Type Diagnosis Age At Onset No Information Payers Payer name Insurance type Covered libertarian ID Authoriza tion(s) No Information Social History Type Description Quantity Date Captured Comments Sex Female Smoking Status No Information Chief Complaint And Reason For Visit No Information Reason For Referral Reason For Referral No Information History Of Present Illness Encounter Date Complaint History Of Prese nt Illness No Information Functional Status Date Functional Assessmen t No Information Instructions Date Instruction Additional Infor mation No Information Assessments Type Assessment Date No Information Patient Care Teams Name Effective Dates (start - stop) Status Members No Information
== END 2024-05-05 14:11 | disposition home or self-care (01) ==
LOC: HO.US 14:10
PROVIDERS: PCP Internal Medicine; Visit Provider Internal Medicine
DX: N20.0 Calculus of kidney (principal)
CPT/HCPCS: 76775

== ENCOUNTER → 2024-05-05 14:12 | Outpatient (BNV) | payer OTHER, SELFPAY | PROVIDERS: PCP Internal Medicine; Visit Provider Radiology Diagnostic Radiology | DX: N20.0 Calculus of kidney (principal) | CPT/HCPCS: 76775 ==

== ENCOUNTER 2024-05-12 15:17 | Outpatient (AMB) | payer OTHER, SELFPAY ==
[2024-05-12 15:26] VITALS: BP 148/72; PULSE 67; BMI 27.4
--- NOTE | 2024-05-12 15:26 | MHC.OFFVIS ---
Vital Signs 05/12/24 15:26 Height 5 ft 4 in Weight 159 lb 6.307 oz BMI 27.4 BP 148/72 H Blood Pressure Location Rt brachial Position Sitting Pulse 67 Pulse Source Pulse Oximeter Intake Visit Reasons: +ANURADHA Intake Note: Patient last seen by Barry Morrison on 11/13/22. Presents today for +ANURADHA follow up. Program Support Specialist Required: No Accompanied by: Self / Same As Patient Allergies morphine Allergy (Intermediate, Verified 05/12/24 15:30) dizzy,sick amoxicillin [AMOXICILLIN] Allergy (Mild, Verified 05/12/24 15:30) GENERALIZED SWELLING & ITCHY RASH, swelling, rash,diff. breathing Medication List - Last Reconciled 05/12/24 by Eileen Tobias MD arm brace (Wrist Brace) As directed calcium carbonate-vitamin D3 600 mg-5 mcg (200 unit) 2 tabs PO DAILY diclofenac sodium 1% 2 grams topical BID gabapentin 800 mg PO TID 30 days multivitamin 1 tab PO DAILY HPI Comments Details: Patient is a 64-year-old female with hypertension, hyperparathyroidism, polyarticular osteoarthritis and Sjogren's syndrome who presents today for follow up Spoke with patient in [place] language. Interval History: Patient last seen 11/13/[address] Barry Dale. At that time she was overall stable with exam consistent with osteoarthritis. She was given cevimeline for oral dryness of Sjogren's. She was ultimately discharged from clinic and told to follow up as needed. At some point she stopped taking the cevimeline and her dry eyes and dry mouth have been stable. Her main complaint today is pain in the hands particularly the DIPs of bilateral hands. Rheumatologic History: Sjogren's syndrome. Previously on Savella mean but this was self-discontinued Initial history: Pt reports a history of chronic low back pain with sciatica. States that she has had this since 2008. Had epidural injections in the past, last one was August 2018, had been getting them since 2009. States that the injections helped a little, she was getting 3-4 injections yearly. Also reports pain in her hands and feet that is worse at night. States that she gets cramping in her hands mostly in her thumbs. States that the cramping improves when she moves her hands. Denies any joint swelling or morning stiffness. Uses Advil for her back pain and states that it helps a little bit. + dry eyes occasional Pt denies Raynauds, photosensitivity, oral or nasal ulcers, dry mouth. No history of miscarriages. No family history of RA, or thyroid disease. Aunt and cousin with SLE. Current Rheumatology Medication(s): Gabapentin 800 mg t.i.d. Diclofenac gel [facility] Medical History (Updated 05/12/24 @ 16:21 by Eileen Tobias MD) Ovarian mass, left Vaginal bleeding Myoma Hx of Sjogren's disease GERD (gastroesophageal reflux disease) Hyperparathyroidism Moderate recurrent major depression Morbid obesity Right shoulder pain Acquired spondylolysis of lumbar spine Dizziness Chronic fatigue Essential hypertension Chronic pain syndrome Postlaminectomy syndrome of lumbar region Sjogrens syndrome Primary osteoarthritis of hands, bilateral Fatty liver Arthritis Anxiety Depression On beta maye at home Hypertension Surgical History History of total hysterectomy Hx of bariatric surgery Hx of colonoscopy Hx of esophagogastroduodenoscopy Hx of section History of surgery History of tubal ligation Family History Father No problems noted. Mother Hypertension Bone cancer Sister Breast cancer Blind Family/Other Mental health disorder Substance use disorder Social History Housing: Apartment Are you a primary patient care provider to a significant other at home: No Do you presently have visiting nurse or other home services: No Alcohol intake: never Patient Tobacco Use Status: Former Tobacco user Tobacco use type: Cigarette e-Cigarette/Vaping Use: Never Used Second Hand Smoke Exposure: No Advance Directives Date on File: 06/08/20 service: No Current occupational status: disabled Cognitive needs: No Hearing needs: No Vision needs: Yes Review of Systems Const Details: Review of Systems Constitutional: Denies fever, chills, weight loss ENT: Denies vision changes, eye pain or eye redness, dental caries, dry mouth GI: Denies nausea, vomiting, diarrhea, abdominal pain, change in BM Pulm: Denies SOB, CONTRERAS, hemoptysis, wheezing Cards: Denies chest pain, palpitations Skin: Denies Raynaud's, rash, nail changes, photosensitivity, IC DESIGNER CUSTOM: Denies headaches, weakness, paresthesias, recurrent falls MSK: as per HPI All other systems reviewed and are unremarkable except noted above Physical Exam Vital Signs: Last Vital Signs Pulse 67 05/12/24 15:26 BP 148/72 H 05/12/24 15:26 BMI result Body Mass Index 27.4 Physical Examination CONSTITUITIONAL Patient alert and cooperative. Well appearing and in no apparent painful distress HEENT Conjunctiva and sclera clear. ?Pupils equal round and reactive to light. ?No lymphadenopathy. ? CHEST/RESPIRATORY SYSTEM Normal respiratory effort and able to speak in complete sentences. ?Clear to auscultation bilaterally. ?No crackles, rales, rhonchi, wheezes heard. CARDIAC SYSTEM Regular rate and rhythm. ?S1 and S2 heard no murmurs. ?Radial pulses intact bilaterally MSK Hands: ?Good varnish maker strength bilaterally. Widespread Heberden nodes noted throughout hands on the DIPs. There was tenderness to palpation of the DIPs without evidence of swelling or synovitis. Wrists: ?Full range of motion at the wrists without pain. ?No tenderness to palpation or synovitis noted to the wrists. Elbows: Full range of motion without pain. No tenderness, weakness, swelling, increased warmth or erythema. Shoulders: Full range of motion without pain. No tenderness, weakness, swelling, increased warmth or erythema. Hips: Full range of motion without pain. Hip bursa: No tenderness to palpation Knees: ?Full range of motion. ?No tenderness, swelling, increased warmth or erythema.?No effusion or crepitations Ankles: Full range of motion. ?No tenderness, swelling, increased warmth or erythema.? Feet: ?Negative squeeze test. ?No tenderness to palpation or swelling of the MTPs. Tender points:?No tenderness to palpation of the bilateral trapezius, supraspinatus, greater trochanters, anterior costochondral junctions, bilateral gluteal areas, bilateral suboccipital muscle insertions SKIN Skin intact without rashes. Quality Reporting (2019) Adult ([facility] 138/06/25/68) Smoking risk assessment performed?: Yes Patient Tobacco Use Status: Former Tobacco user Results Reviewed Results Reviewed: Laboratory Tests 12/21/18 01/05/19 06/11/19 10:24 11:50 10:10 Rheumatoid Factor < 15.0 < 15.0 ANURADHA Screen Positive H ANURADHA Titer 1:40 H ANURADHA Pattern Centromere SS-A/Ro Antibody >8.0 H Centromere B Antibody Thyroglobulin Antibody 23 H Thyroid Peroxidase Ab 10 H Complement C3 105 118 Complement C4 23 28 12/20/20 09:45 Rheumatoid Factor ANURADHA Screen ANURADHA Titer ANURADHA Pattern SS-A/Ro Antibody >8.0 POS A Centromere B Antibody 2.8 POS A Thyroglobulin Antibody Thyroid Peroxidase Ab Complement C3 Complement C4 Assessment & Plan Assessment & Plan (1) Osteoarthritis of hands, bilateral: Code(s): M19.041 - Primary osteoarthritis, right hand; M19.042 - Primary osteoarthritis, left hand Category: Medical Qualifiers: Osteoarthritis type: primary Qualified Code(s): M19.041 - Primary osteoarthritis, right hand; M19.042 - Primary osteoarthritis, left hand Plan: #Primary OA of bilateral hands Patient with complaints of bilateral hand pain. History and exam consistent with primary osteoarthritis. Recommended topical diclofenac up to 4 times a day as well as copper gloves. 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 Cevimeline stopped by patient. We will continue to monitor Plan I spent 30 minutes reviewing the record and labs, taking a history, examining the patient, discussing the treatment plan and documenting in the medical record Orders: Orders PT Evaluation and Treatment Today M19.041 - Primary osteoarthritis, right hand, M19.042 - Primary osteoarthritis, left hand Medications: Refilled diclofenac sodium 1% apply to painful joints 2 grams topical BID 100 grams 4RF Coding Level of Care Code Est Pt Level 4 (63048) Complex EM visit Add On G2211 Diagnoses Primary osteoarthritis of both hands M19.041; M19.042 Osteoarthritis type: primary Sjogren's syndrome with keratoconjunctivitis sicca M35.01 Sjogren's organ involvement: keratoconjunctivitis
--- OUTSIDE RECORDS SUMMARY | 2024-05-12 16:49 | XMS_ITS | Continuity of Care Document ---
Author Organization [facility] Address [address] [place] [address] [address] MD Maria De Jesus [phone] Phone Care Team Providers Care Canal Superintendent Name Role Phone Gus Mitchell MD, FACS, RVT Unavailable Unavailable Advance Directives Directive Yes / No Effective Date File Name No Information Encounters Encounter Description Practice Location Reason(s) For Visit Diagnoses Date Provider Providers Copied on Encounter [facility], [address] [place] [address] [address], [place] Maria De Jesus, [id number], tel:[phone] [address] [facility] No Information 4 Hema BUSTOS FACS SUSANNE Zavaleta. [address] [address], [place], [address], [place]. tel:[phone] Family History Family Member Type Diagnosis Age At Onset No Information Payers Payer name Insurance type Covered green party ID Authoriza tion(s) No Information Social History [...]
== END 2024-05-12 16:04 | disposition home or self-care (01) ==
PROVIDERS: PCP Internal Medicine; Visit Provider Student in an Organized Health Care Education/Training Program
DX: M19.041 Primary osteoarthritis, right hand (principal); M19.042 Primary osteoarthritis, left hand; M35.01 Sjogren syndrome with keratoconjunctivitis
CPT/HCPCS: 99214; G2211

== ENCOUNTER → 2024-05-12 15:17 | Outpatient (BNVA) | payer OTHER, SELFPAY | PROVIDERS: PCP Internal Medicine; Visit Provider Student in an Organized Health Care Education/Training Program | DX: M19.041 Primary osteoarthritis, right hand (principal); M19.042 Primary osteoarthritis, left hand; M35.01 Sjogren syndrome with keratoconjunctivitis | CPT/HCPCS: 99212 ==

== ENCOUNTER 2024-06-15 09:59 | Outpatient (AMB) | payer OTHER, SELFPAY ==
--- NOTE | 2024-06-15 10:26 | A.OFFPC_ITS ---
Vital Signs 06/15/24 10:29 Height 5 ft 4 in Weight 158 lb BMI 27.1 BP 128/80 Blood Pressure Location Lt brachial Position Sitting Intake Visit Reasons: Annual Exam Intake Note: Patient here for annual physical exam Key Account Manager Required: Yes Key Account Manager Language: Mail Officer Name: Meka Nguyễn MD Information Interpreted: non-clinical & clinical Accompanied by: Self / Same As Patient Allergies morphine Allergy (Intermediate, Verified 06/15/24 10:49) dizzy,sick amoxicillin [AMOXICILLIN] Allergy (Mild, Verified 06/15/24 10:49) GENERALIZED SWELLING & ITCHY RASH, swelling, rash,diff. breathing Medication List - Last Reconciled 06/15/24 by Meka Nguyễn MD arm brace (Wrist Brace) As directed calcium carbonate-vitamin D3 600 mg-5 mcg (200 unit) 2 tabs PO DAILY gabapentin 800 mg PO TID 30 days multivitamin 1 tab PO DAILY Tobacco use date assessed: 06/15/24 Fall risk assessment: No Falls in past year Last assessed Fall Risk: 06/15/24 Dental Screening Dental Screen Date: 06/15/24 Did you have a dental visit in the last 12 months?: Yes Did you have a dental problem in the last 6 months where you did not have access to dental care?: No Was dental information given to patient?: Patient has dentist HPI HPI Comments History of Present Illness Details The patient is a 64-year-old female presenting for an annual physical examination. She has a known diagnosis of osteopenia confirmed by a densitometry in 2022, with follow-up recommended for 2024. She has a documented history of allergies to morphine and amoxicillin. In 2021, she underwent bariatric surgery, and in the previous year, she had a hysterectomy due to a pelvic mass. The patient also notes a history of a section in 1999 and back surgery in 2009. Regarding her mental health, she experiences mild depression with a PHQ-9 score of 5, influenced by seasonal changes, and reports some anxiety. She previously had anemia, which requires monitoring. Historical colonoscopy from 2012 showed polyps, and she plans to schedule a follow-up. She continues follow up with rheumatology for arthritis management. She denies smoking or alcohol consumption presently but has a history of smoking more than six years ago. - Influenza vaccine planned in [facility] . - Tetanus booster due since last receive d in 2006. - Osteoporosis follow-up scheduled for 2 025. - Mammography completed in 2022; attempt ed follow-up. - History of section in 1999. - Bariatric surgery in 2021. - Back surgery in 2009. - Hysterectomy in 2021 with pelvic mass removal. - Papanicolaou smear performed in 2022; no further needed. - Vitamin D and calcium supplements ongo ing. - Planned kidney ultrasound shown normal . - Cholesterol, glucose, renal, and hepat ic panel to be checked. - Colonoscopy follow-up recommended; ref erral to be placed. [facility] Medical History (Updated 06/15/24 @ 11:00 by Meka Nguyễn MD) Ovarian mass, left Vaginal bleeding Myoma Hx of Sjogren's disease GERD (gastroesophageal reflux disease) Hyperparathyroidism Moderate recurrent major depression Morbid obesity Right shoulder pain Acquired spondylolysis of lumbar spine Dizziness Chronic fatigue Essential hypertension Chronic pain syndrome Postlaminectomy syndrome of lumbar region Sjogrens syndrome Primary osteoarthritis of hands, bilateral Fatty liver Arthritis Anxiety Depression On beta maye at home Hypertension Surgical History History of total hysterectomy Hx of bariatric surgery Hx of colonoscopy Hx of esophagogastroduodenoscopy Hx of section History of surgery History of tubal ligation Family History Father No problems noted. Mother Hypertension Bone cancer Sister Breast cancer Blind Family/Other Mental health disorder Substance use disorder Social History Housing: Apartment Are you a primary wound care rn to a significant other at home: No Do you presently have visiting nurse or other home services: No Alcohol intake: never Patient Tobacco Use Status: Former Tobacco user Tobacco use type: Cigarette e-Cigarette/Vaping Use: Never Used Second Hand Smoke Exposure: No Advance Directives Date on File: 06/08/20 service: No Current occupational status: disabled Cognitive needs: No Hearing needs: No Vision needs: Yes Questionnaire PHQ-9 Over the last 2 weeks, how often have you been bothered by any of the following problems? 1. Little interest or pleasure in doing things: several days 2. Feeling down, depressed, or hopeless: several days 3. Trouble falling or staying asleep, or sleeping too much: several days 4. Feeling tired or having little energy: not at all 5. Poor appetite or overeating: not at all 6. Feeling bad about yourself - or that you are a failure or have let yourself or your family down: several days 7. Trouble concentrating on things, such as reading the newspaper or watching television: several days 8. Moving or speaking so slowly that other people could have noticed. Or the opposite - being so fidgety or restless that you have been moving around a lot more than usual: not at all 9. Thoughts that you would be better off or of hurting yourself in some way: not at all Total score: 5 Depression Screening Interpretation: Positive Depression Screening Follow-up: Existing condition and Follow-up Visit Requested Depression Screening Done: Yes 37511 - PHQ-9 Billing: Yes Source: Developed by Drs. Chad Randall, Juhi Bunch, Manjeet Gooden and colleagues, with an educational mayra from [employer]. Thrive Questionnaire Date Thrive assessed: 06/15/24 I am a: Patient What is your living situation today?: I have a steady place to live Within the past 12 months, did the food you bought not last and you didn't have the money to get more?: I choose not to answer this question Within the past 12 months, did you worry whether your food would run out before you got money to buy more?: I choose not to answer this question Do you have trouble paying for medicines?: No Do you have trouble getting transportation to medical appointments?: No Do you have trouble paying your heating and electricity bill?: No Do you have trouble taking care of your child, family member or friend?: No Do you have trouble with day-to-day activities such as bathing, preparing meals, shopping, managing finances, etc.?: No Are you currently unemployed and looking for a job?: I choose not to answer this question Are you interested in more education?: No Please select the resources that you would like help with: None Currently or been in a relationship where the following occur: I choose not to answer THRIVE Score: 0 AUDIT C Alcohol Use Questionnaire (AUDIT-C) 1. How often do you have a drink containing alcohol?: Never Total Score: 0 Score Reviewed/Action Taken: No JAMES-7 AMB Questionnaire JAMES-7 Date JAMES - 7 assessed: 06/15/24 Feeling nervous, anxious, or on edge: 1 = Several days Not being able to stop or control worryin = Several days Worrying too much about different things: 1 = Several days Trouble relaxin = Several days Being so restless that it is hard to sit still: 1 = Several days Becoming easily annoyed or irritable: 1 = Several days Feeling afraid as if something awful might happen: 1 = Several days Total JAMES-7 score (0-4 normal; 5-9 mild; 10-14 moderate; 15-21 severe): 7 Source: Developed by Drs. Chad Randall, Juhi Bunch, Manjeet Gooden and colleagues, with an educational mayra from [employer]. JAMES-7 Assessment Billing JAMES-7 Assessment Tool: JAMES-7 Assessment 61248 Review of Systems Const All systems reviewed & are unremarkable except as noted in HPI and below Card Denies chest pain at rest, Denies chest pain with activity, Denies edema, Denies irregular heart rhythm, Denies claudication, Denies dyspnea, Denies dyspnea on exertion, Denies orthopnea, Denies paroxysmal nocturnal dyspnea and Denies slow heart rate Resp Denies cough, Denies dyspnea and Denies dyspnea on exertion GI Denies abdominal pain, Denies change in bowel habits, Denies excessive flatus, Denies nausea and Denies vomiting Physical exam (Primary Care) Vital Signs: Last Vital Signs BP 128/80 06/15/24 10:29 BMI result Body Mass Index 27.1 Tobacco/Smoking Status: Tobacco use Status Tobacco use date assessed 06/15/24 06/15/24 10:32 Patient Tobacco Use Status Former Tobacco user 06/15/24 10:32 Tobacco use type Cigarette 06/15/24 10:32 e-Cigarette/Vaping Use Never Used 06/15/24 10:32 PHQ-9: PHQ-9 Score PHQ-9: Total score 5 06/15/24 12:54 Depression Screening Interpretation: Positive Depression Screening Follow-up: Existing condition and Follow-up Visit Requested Thrive Assessment: Date of Thrive Assessment Date Thrive assessed 06/15/24 06/15/24 10:32 Currently or been in a relationship where the following occur: I choose not to answer Const Orientation/consciousness: patient oriented x3 [facility] Head: Yes normal to inspection, Yes normocephalic and Yes atraumatic Ears: external ears normal Eyes General: appearance normal, both eyes and all related structures Eyelids: Yes eyelids normal Conjunctivae: conjunctivae normal Neck Neck: Yes normal visual inspection and Yes supple Resp Effort & Inspection: normal respiratory effort Auscultation: clear to auscultation bilaterally Cardio Jugular venous distension: no JVD Rate: regular rate Rhythm: regular rhythm Heart sounds: S1 normal heart sound present and S2 normal heart sound present GI Inspection: Yes normal to inspection Palpation (GI): Soft to palpation and nontender Auscultation: normal bowel sounds Skin General skin exam: no rashes or lesions noted Neuro General: patient oriented x3 and no focal motor deficits Extrem General: Yes full ROM Psych Appearance: grossly normal Office Procedures Flu Questionnaire Does the patient have a severe egg allergy?: No Immunizations Fluarix Triv [id number] (PF) 45 mcg (15 mcg x 3)/0.5 mL IM syringe Performing Provider: Meka Nguyễn MD Performing Location[facility] [place] Documented (not given) by: SOPHIA Esquivel on 06/15/24 12:54 Reason Not Given: Patient Refused Boostrix Tdap 2.5 Lf unit-8 mcg-5 Lf/0.5 mL intramuscular syringe Performing Provider: Meka Nguyễn MD Performing Location: [facility] Administered by: SOPHIA Esquivel on 06/15/24 11:07 Dose Route Admin Location Dispensed Lot Number Expiration Date [facility] Heavy Equipment Service Manager 0.5 mL IM Left Deltoid 0.5 mL [id number] 07/23/26 13428-514-78 [email or web address] VIS Given Date VIS Provided VIS Publication Date 06/15/24 Single Vaccine 20 Eligibility Eligibility Date Funding Source Not [facility] Eligible 06/15/24 Private Coding Level of Care Code Est Pt Prev Care 40-64y(70036) Diagnoses Physical exam Z00.00 Additional Codes JAMES-7 Assessment Billing - JAMES-7 Assessment Tool: JAMES-7 Assessment 62421 ([id number]) PHQ-9 - 18360 - PHQ-9 Billing: Yes ([id number]) Time Spent (min) 31 Assessment & Plan Assessment & Plan (1) Physical exam: Code(s): Z00.00 - Encounter for general adult medical examination without abnormal findings Category: Medical Plan - Administer tetanus vaccine - Encourage patient to maintain bariatric dietary regimen. - Schedule follow-up colonoscopy and perform necessary referrals. - Check levels of cholesterol, blood glucose, renal, and hepatic function. - Continue vitamin D and calcium supplementation. - Reassess anemia status with routine bloodwork. - Continue arthritis management with rheumatology input. Patient was informed and verbally consented to the use of an ambient scribe for clinic note documentation during this visit. I discussed the importance of maintaining regular health screenings and updates on vaccinations with the patient. We agreed on the need for a tetanus booster as it's overdue and reviewed her previous chronic conditions highlighting the necessity of consistent follow-ups for osteoporosis and routine mammograms. We also covered her mental well-being and discussed the slight increase in her PHQ- 9 score, emphasizing that the condition is manageable and likely influenced by environmental factors. The plan for a colonoscopy was made urgent due to her history of polyps. We also covered dietary strategies post-bariatric surgery, encouraging healthier food choices post-holidays. Orders: Orders XR DEXA axial skeleton Today Z78.0 - Asymptomatic menopausal state IRON PROFILE Today D64.9 - Anemia, unspecified MM tomosynthesis screening BI Today Z12.31 - Encounter for screening mammogram for malignant neoplasm of breast TDaP Immunization Today Z23 - Encounter for immunization Influenza [id number] Immunization Today Z23 - Encounter for immunization Vitamin D 25-OH Total Today E55.9 - Vitamin D deficiency, unspecified Complete Blood Count Auto Diff Today D64.9 - Anemia, unspecified Lipid Panel Today E78.5 - Hyperlipidemia, unspecified Comprehensive Anderson. Panel Fast Today Z00.00 - Encounter for general adult medical examination without abnormal findings Referrals Open Access Screening Colonoscopy Referral Z12.12 - Encounter for screening for malignant neoplasm of rectum Patient Instructions: - Obtain the tetanus booster today. - Continue following the bariatric diet and incorporate healthy practices. - Schedule and attend the planned follow-up colonoscopy. - Monitor and report any depressive symptoms that worsen. - Engage in regular physical activity to maintain health. - Maintain regular intake of calcium and vitamin D supplements. - Return if experiencing significant changes in health conditions.
[2024-06-15 10:29] VITALS: BP 128/80; BMI 27.1
--- OUTSIDE RECORDS SUMMARY | 2024-06-15 11:43 | XMS_ITS | Clinical Summary ---
Author Organization [employer] Address [address] [place] [address] Care Team Providers Care Client Retention Specialist Name Role Phone Unavailable Primary Care Provider Unavailabl e Allergies Active Allergy Reactions Criticality Noted Date Comments Amoxicillin 06/11/2015 Morphine 12/11/2021 Medications acetaminophen (Tylenol) 500 MG tablet take 1 tablet (500MG) by oral route every 6 hours as needed 1 Active amLODIPine (Norvasc) 5 MG tablet Take 1 tablet by mouth at bed time. 8 Active aspirin 81 MG chewable tablet Chew 1 tablet at bed time. 8 Active aspirin-acetami nophen-caffeine (Excedrin Migraine) 250-250-65 MG tablet 1 tab po q8hrs as needed for headache 9 Active gabapentin (Neurontin) 100 MG capsule Take by mouth. Acti ve hydroCHLOROthia zide (HYDRODiuril) 25 MG tablet Take 1 tablet by mouth at bed time. 8 Active loratadine (Claritin) 10 MG tablet Take 1 tablet by mouth at bed time. 8 Active Melatonin 5 MG capsule take one daily at bedtime 9 Active meloxicam (Mobic) 15 MG tablet Take 1 tablet by mouth at bed time. 9 Active metoprolol tartrate (Lopressor) 100 MG tablet Take 1 tablet by mouth every 12 (twelve) hours. 8 Active omeprazole (PriLOSEC) [address] capsule Take 1 capsule by mouth every 12 (twelve) hours. 8 Active polyvinyl alcohol (Liquifilm Tears) 1.4 % ophthalmic solution one drop in each eye 3 to 4 times per day 0 Active traZODone (Desyrel) 50 MG tablet Take 1 tablet by mouth at bed time. 9 Active lisinopril 20 MG tablet Take 1 tablet by mouth. 8 Active beta carotene (vitamin A) 3 MG (96153 UT) capsule Take by mouth in the morning. 3 Active gabapentin (Neurontin) 600 MG tablet Take 600 mg by mouth 3 times daily. 3 Active Diclofenac Sodium 1 % gel APPLY 2 GRAMS TOPICALLY TO PAINFUL JOINTS TWICE DAILY 3 Active cevimeline (Evoxac) 30 MG capsule START BY TAKING ONE CAPSULE BY MOUTH ONCE DAILY AND INCREASE BY 1 CAPSULE A DAY EVERY WEEK UNTIL UP TO 1 CAPSULE 3 TIMES DAILY 3 Active docusate sodium (Colace) 100 MG capsule TAKE 1 CAPSULE BY MOUTH TWICE DAILY NEEDED FOR CONSTIPATION FOR 10 DAYS 4 Active estradiol (Climara) 0.025 MG/24HR APPLY 1 PATCH TOPICALLY ONCE A WEEK Active ibuprofen 600 MG tablet TAKE 1 TABLET BY MOUTH EVERY 6 HOURS FOR 7 DAYS 4 Active lidocaine (Lidoderm) 5 % patch APPLY ONE PATCH TOPICALLY TO CLEAN, DRY SKIN DAILY NEEDED FOR MILD PAIN. LEAVE ON FOR 12 HOURS THEN REMOVE. MUST WAIT AT LEAST 12 HOURS BEFORE APPLYING PATCH(ES) AGAIN. 4 Active oxyCODONE (Roxicodone) 5 MG immediate release tablet TAKE 1 TABLET BY MOUTH EVERY 6 HOURS NEEDED FOR PAIN FOR 3 DAYS. MAY TAKE 2 TABLETS EVERY 6 HOURS IF PAIN NOT CONTROLLED WITH ONE 4 Active Active Problems Problem Noted Date Diagnosed Date Dental plaque 11/26/2022 Dental caries 11/26/2022 Encounters Date Type Department Care Team Description 05/30/2024 10:30 AM EST Office Visit [facility] [address] [place] [id number] Elliott, Lianna, OD Retinal drusen, right (Primary Dx); Lattice degeneration of left retina; Dry eyes, bilateral; Combined forms of age-related cataract of both eyes; Presbyopia of both eyes 05/30/2024 Travel from Last 3 Months Immunizations Name Administration Dates Next Due Influenza injectable quadriv alent IIV4 with preservative 05/16/2019,03/13/2016 Influenza injectable quadriv alent preservative free 02/18/2017,02/26/2015 Influenza, Split (incl. sita fied surface antigen) 02/08/2013,02/11/2012 Moderna Covid-19 Vaccine 12+ 07/23/2021,09/29/19 21,08/31/2020 Pneumococcal Polysaccharide PPSV23 04/07/2013 TD (adult), 2 Lf tetanus tox oid, preservative free, adsorbed 04/19/2007 Family History Medical History Relation Name Comments Blindness Sister Corneal dystrop hy Relation Name Status Comments Sister Social History Tobacco Use Types Packs/Day Years Used Date Smoking Tobacco: Former Cigarettes Smokeless Tobacco: Never Tobacco Cessation:Counseling Given: Not Answered Comments Unknown Sex and Gender Information Value Date Recorded Sex Assigned at Female 03/03/2022 10:19 AM EDT Legal Sex Female 10:19 AM EDT Gender Identity Female 03/03/2022 10:19 AM EDT Sexual Orientation Straight 03/03/2022 10 :19 AM EDT Last Filed Vital Signs Vital Sign Reading Time Taken Comments Blood Pressure 136/74 12/17/2022 8:54 AM EDT Pulse 60 11/26/2022 8:39 AM EDT Temperature - - Respiratory Rate - - Oxygen Saturation - - Inhaled Oxygen Concentration - - Weight - - Height - - Body Mass Index - - Plan of Treatment Health Maintenance Due Date Last Done Comments CT Colonography 1960 Colonoscopy 1960 Colorectal Cancer Screening 1960 Dental X-Ray: Bitewings 1960 Dental X-Ray: Full Mouth 1960 Depression Screening 1960 FIT DNA/Cologuard 1960 FIT 1960 FOBT 1960 HIV Screening 1960 Lipid Panel 1960 SDOH Screening 1960 Sigmoidoscopy 1960 Alcohol/Substance Use Screening 1972 Hepatitis C Screening 1978 Hepatitis A Vaccines (1 of 2 - Risk 2-dose series) 1979 Pap Smear 1981 Cervical Cancer Screening 1990 HPV/Cotest 1990 Mammogram 2000 DTaP/Tdap/Td Vaccines (1 - Tdap) 04/20/2007 04/19/2007 Zoster Vaccines (1 of 2) 2010 Pneumococcal Vaccine: 50+ Years (2 of 2 - PCV) 04/07/2014 04/07/2013 Hepatitis B Vaccines (1 of 3 - Risk 3-dose series) 2020 RSV Patients and Patients Aged 60 years or older (1 - Risk 60-74 years 1-dose series) 2020 Dental Oral Exam 05/30/2023 11/26/2022 Dental Prophylaxis 05/30/2023 11/26/2022 COVID-19 Vaccine ( season) 2024 03/07/2022, 07/23/2021, 09/28/2020, Additional history exists Tobacco Screening 11/24/2024 11/25/2023 Pneumococcal Vaccine: Pediatrics (0 to 5 Years) and At-Risk Patients (6 to 49) Years) Aged Out 04/07/2013 No longer eligible based on patient's age to complete this topic Influenza Vaccine Completed 01/16/2024, , 05/16/2019, Additional history exists HIB Vaccines Aged Out No longer eligi ble based on patient's age to complete this topic HPV Vaccines Aged Out No longer eligi ble based on patient's age to complete this topic IPV Vaccines Aged Out No longer eligi ble based on patient's age to complete this topic Meningococcal Vaccine Aged Out No adilene tariq eligible based on patient's age to complete this topic RSV under 20 months Aged Out No longe r eligible based on patient's age to complete this topic Rotavirus Vaccines Aged Out No longer eligible based on patient's age to complete this topic Procedures Procedure Name Priority Date/Time Associated Diagnosis Comments FUNDUS PHOTOS - OU - BOTH EYES Routine 05/30/2024 11:26 AM EST Retinal drusen, right PROPHYLAXIS - ADULT Routine 11/26/2022 9 :00 AM EDT PERIODIC ORAL EVALUATION - ESTABLISHED PATIENT Routine 11/26/2022 9:00 AM EDT from Last 3 Months or Most Recently Relevant to Health Maintenance Results * Fundus Photos - OU - Both Eyes (05/30/2024 11:26 AM EST) Narrative Lianna Gallagher, OD - 05/30/2024 11:26 AM EST Right Eye Progression has no prior data. Disc findings include normal observations. Macula findings include normal observations. Vessel findings include normal observations. Periphery findings include (Isolated drusen just superotemporal to ONH). Left Eye Progression has no prior data. Disc findings include normal observations. Macula findings include normal observations. Vessel findings include normal observations. Periphery findings include normal observations. Notes Impression and Plan: Isolated drusen in the right eye, not visually significant. Will monitor at her next exam. Lianna Gallagher OD OPHTH PHOTOGRAPHY Final Resul t from Last 3 Months Insurance [facility] STAND ADULT
--- OUTSIDE RECORDS SUMMARY | 2024-06-15 11:43 | XMS_ITS | Clinical Summary ---
Author Organization [facility] Facility Address [address] [place] [address], [place] [address] Care Team Providers Care Specialty Plant Supervisor Name Role Phone Meka Pena MD Primary Care Provider [phone] Allergies Active Allergy Reactions Criticality Noted Date Comments Amoxicillin 12/11/2021 Morphine 12/11/2021 Medications gabapentin (NEURONTIN) 400 MG capsule Take 400 mg by mouth in the morning and 400 mg in the evening and 400 mg before bedtime. Active Active Problems No known active problems Family History Medical History Relation Comments Hypertension Mother Cancer Sister Relation Status Comments Father Mother Sister Social History Tobacco Use Types Packs/Day Years Used Date Smoking Tobacco: Former Cigarettes Q uit: 1985 Smokeless Tobacco: Never Tobacco Cessation:Counseling Given: Not Answered Comments Unknown Sex and Gender Information Value Date Recorded Sex Assigned at Not on file Legal Sex Female 8:24 AM EDT Gender Identity Not on file Sexual Orientation Not on file Last Filed Vital Signs Vital Sign Reading Time Taken Comments Blood Pressure 100/78 12/12/2021 1:34 PM EDT Pulse 71 12/12/2021 1:34 PM EDT Temperature - - Respiratory Rate - - Oxygen Saturation 98% 12/12/2021 1:34 PM EDT Inhaled Oxygen Concentration - - Weight 62 kg (136 lb 9.6 oz) 12/12/2021 1:34 PM EDT Height - - Body Mass Index - - Plan of Treatment Health Maintenance Due Date Last Done Comments Breast Cancer Screening 1960 Pneumococcal Vaccine: Pediat rics (0 to 5 Years) and At-Risk Patients (6 to 64 Years) (1 of 2 - PCV) 1966 Colorectal Cancer Screening: Annual FOBT 2009 Colorectal Cancer Screening: Colonoscopy 2009 Colorectal Cancer Screening: Sigmoidoscopy 2009 Influenza Vaccine (#1) 2024 Hepatitis B Vaccine Aged Out No longe r eligible based on patient's age to complete this topic Insurance [facility] MEDICAID [facility] MEDICAID Care Teams Specialty Plant Supervisor Relationship Specialty Start Date End Date Meka Pena MD [address] [place] [address] PCP - General Internal Medicine 12/11/21
--- OUTSIDE RECORDS SUMMARY | 2024-06-15 11:43 | XMS_ITS | Encounter Summary ---
Author Organization [employer] Address [address] [facility] 7[address] [place] [address] Care Team Providers Care Senior Project Leader/Team Lead Name Role Phone Unavailable Primary Care Provider Unavailabl e Encounter Details Date Type Department Care Team (Latest Contact Info) Description 06/15/2019 Abstract [facility] CONVERSIONS Dental, Provider, DDS Social History Tobacco Use Types Packs/Day Years Used Date Smoking Tobacco: Never Assessed Comments Unknown Sex and Gender Information Value Date Recorded Sex Assigned at Female 03/03/2022 10:19 AM EDT Legal Sex Female 10:19 AM EDT Gender Identity Female 03/03/2022 10:19 AM EDT Sexual Orientation Straight 03/03/2022 10 :19 AM EDT documented as of this encounter Plan of Treatment Not on file documented as of this encounter Visit Diagnoses Not on filedocumented in this encounter
--- OUTSIDE RECORDS SUMMARY | 2024-06-15 11:43 | XMS_ITS | Encounter Summary ---
Author Organization [employer] Address [address] [facility] 7t [place] [address] Care Team Providers Care Benefits Coordinator Name Role Phone Unavailable Primary Care Provider Unavailabl e Encounter Details Date Type Department Care Team (Latest Contact Info) Description 05/30/2024 Travel Social History Tobacco Use Types Packs/Day Years Used Date Smoking Tobacco: Former Cigarettes Smokeless Tobacco: Never Comments Unknown Sex and Gender Information Value [...]
--- OUTSIDE RECORDS SUMMARY | 2024-06-15 11:43 | XMS_ITS | Encounter Summary ---
Author Organization [employer] Address [address] [place] [address] 7t [place] [address] Care Team Providers Care Distribution Analyst Name Role Phone Unavailable Primary Care Provider Unavailabl e Encounter Details Date Type Department Care Team (Latest Contact Info) Description 03/12/2022 Abstract [facility] CONVERSIONS Dental, Provider, DDS Social History [...]
--- OUTSIDE RECORDS SUMMARY | 2024-06-15 11:44 | XMS_ITS | Continuity of Care Document ---
Author Organization [facility] Address [address] [place] [address] [address] [place] [id number] Phone Care Team Providers Care Flotation Tender Helper Name Role Phone Gus Mitchell MD, FACS, RVT Unavailable Unavailable Advance Directives Directive Yes / No Effective Date File Name No Information Encounters Encounter Description Practice Location Reason(s) For Visit Diagnoses Date Provider Providers Copied on Encounter [facility], [address] [place] [address] [address], [place] Maria De Jesus, [id number], tel:[phone] [address] [facility] No Information 4 Hema BUSTOS FACS SUSANNE Zavaleta. [address] [address], [place], [address], [place]. tel:[phone] Family History Family Member Type Diagnosis Age At Onset No Information Payers Payer name Insurance type Covered democrat ID Authoriza tion(s) No Information Social History [...]
--- OUTSIDE RECORDS SUMMARY | 2024-06-15 11:44 | XMS_ITS | Encounter Summary ---
Author Organization [employer] Address [address] [facility] 7t [place] [address] Care Team Providers Care Channel Partners Name Role Phone Unavailable Primary Care Provider Unavailabl e Reason for Visit * Reason Comments Lattice degeneration Encounter Details Date Type Department Care Team ([facility] st Contact Info) Description 05/30/2024 10:30 AM EST Office Visit [facility] OPTOMETRY [address] [place] [address] Lianna Gallagher, OD [address] [place] [address] Retinal drusen, right (Primary Dx); Lattice degeneration of left retina; Dry eyes, bilateral; Combined forms of age-related cataract of both eyes; Presbyopia of both eyes Social History Tobacco Use Types Packs/Day Years [...] on file documented as of this encounter Procedures Procedure Name Priority Date/Time Associated Diagnosis Comments FUNDUS PHOTOS - OU - BOTH EYES Routine 05/30/2024 11:26 AM EST Retinal drusen, right documented in this encounter Results * Fundus Photos - OU - [...] significant. Will monitor at her next exam. us Lianna Gallagher OD OPHTH PHOTOGRAPHY Final Resul t documented in this encounter Visit Diagnoses Diagnosis Retinal drusen, right- Primary Lattice degeneration of left retina Dry eyes, bilateral Combined forms of age-related cataract of both eyes Presbyopia of both eyes documented in this encounter
== END 2024-06-15 11:06 | disposition home or self-care (01) ==
PROVIDERS: PCP Internal Medicine; Visit Provider Internal Medicine
DX: Z23 Encounter for immunization (principal); Z00.00 Encounter for general adult medical examination without abnormal findings

== ENCOUNTER → 2024-06-15 09:59 | Outpatient (BNVA) | payer OTHER, SELFPAY | PROVIDERS: PCP Internal Medicine; Visit Provider Internal Medicine | DX: Z00.00 Encounter for general adult medical examination without abnormal findings (principal); Z23 Encounter for immunization; I10 Essential (primary) hypertension | CPT/HCPCS: 90471; 90715; 96127; 99396 ==

== ENCOUNTER 2024-06-27 10:58 | Outpatient (AMB) | payer OTHER, SELFPAY ==
--- NOTE | 2024-06-27 11:05 | MHC.OFFVIS ---
Vital Signs 06/27/24 11:10 Height 5 ft 4 in Weight 158 lb BMI 27.1 BP 159/78 H Blood Pressure Location Lt brachial Position Sitting Pulse 82 Pulse Source Pulse Oximeter Pulse Oximetry (%) 98 Oxygen Delivery Method Room Air Intake Visit Reasons: FU for medication refill Intake Note: Pain today 01/11 Rim Turning Finisher Required: Yes Rim Turning Finisher Language: Shear Grinder Operator Helper Name: Vaishali Accompanied by: Self / Same As Patient Allergies morphine Allergy (Intermediate, Verified 06/27/24 11:11) dizzy,sick amoxicillin [AMOXICILLIN] Allergy (Mild, Verified 06/27/24 11:11) GENERALIZED SWELLING & ITCHY RASH, swelling, rash,diff. breathing HPI Comments Details: Abida is in the office today to discuss medical pain management with gabapentin. In the past she was under interventional pain management she received diagnostic medial branch blocks with good results and we were considering sprint PNS when her insurance company denied the procedure on the ground that sprint PNS is experimental procedure. She did not change her insurance. I started her on gabapentin and since then patient reports very good pain relief on gabapentin improved activities of daily living improved mobility improved social interactions. She denies side effects of the gabapentin, she denies dizziness drowsiness, denies depression, denies fluid retention swelling. I will refill her medication today with 11 refills I will see her in 1 year. In the past she received bilateral L3-L4 does ramus L5 diagnostic medial branch block with lidocaine on 08/08/2021.? She reports overall pain improvement.? She said that she had 100% pain improvement immediately after procedure for the 1st 8 hours.? She reports for the pain improvement going down the road because she was starting to do aerobic exercises and she was taking gabapentin.? However now her pain is onset of the cold weather came back with the full strength.? She is here to discuss possibility of further treatment of her condition.? I offered her sprint procedure and she agreed to go forward.? I will do bilateral L5 PNS for this ?complains on lower back pain with radiation into lower extremities.? She is suffering from postlaminectomy syndrome.? She received caudal epidural steroid injection in June of 2020 and she reported 80% of pain relief for 1 month.? After that pain started gradually to come back. She received another Caudal IFEOMA with the catheter in the beginning in September. She reports good pain relieve at rest but pain is exacerbated by movement and walking.? I suspect there is significant facet joint component and her pain.? I discussed with her possibility of doing medial branch block after I reviewed x-ray of her lower back which is dictated as below.? I will do this procedure without sedation.? I will schedule it accordingly.? She also reports that gabapentin is helping her pain.? She used to be on 300 mg 3 times a day.? [facility] Medical History Ovarian mass, left Vaginal bleeding Myoma Hx of Sjogren's disease GERD (gastroesophageal reflux disease) Hyperparathyroidism Moderate recurrent major depression Morbid obesity Right shoulder pain Acquired spondylolysis of lumbar spine Dizziness Chronic fatigue Essential hypertension Chronic pain syndrome Postlaminectomy syndrome of lumbar region Sjogrens syndrome Primary osteoarthritis of hands, bilateral Fatty liver Arthritis Anxiety Depression On beta maye at home Hypertension Surgical History History of total hysterectomy Hx of bariatric surgery Hx of colonoscopy Hx of esophagogastroduodenoscopy Hx of section History of surgery History of tubal ligation Family History Father No problems noted. Mother Hypertension Bone cancer Sister Breast cancer Blind Family/Other Mental health disorder Substance use disorder Social History Housing: Apartment Are you a primary care rep to a significant other at home: No Do you presently have visiting nurse or other home services: No Alcohol intake: never Patient Tobacco Use Status: Former Tobacco user Tobacco use type: Cigarette e-Cigarette/Vaping Use: Never Used Second Hand Smoke Exposure: No Advance Directives Date on File: 06/08/20 service: No Current occupational status: disabled Cognitive needs: No Hearing needs: No Vision needs: Yes Review of Systems Const All systems reviewed & are unremarkable except as noted in HPI and below ENT Reports Normal hearing present Neuro Reports Normal hearing present, Denies Abnormal speech present, Denies confusion and Denies Sensory deficit (Neuro) Psych Denies confusion Physical Exam Vital Signs: Last Vital Signs Pulse 82 06/27/24 11:10 BP 159/78 H 06/27/24 11:10 Pulse Ox 98 06/27/24 11:10 Oxygen Delivery Method Room Air 06/27/24 11:10 BMI result Body Mass Index 27.1 Const General: no acute distress; No confusion Nutritional Appearance: obese morbidly obese Orientation/consciousness: patient oriented x3 and No confusion Eyes General: appearance normal, both eyes and all related structures Pupils: Equal, round and reactive pupils present EOM: EOMs intact bilaterally Neck Neck: Yes full ROM Chest Chest palpation & inspection: normal inspection of the chest Resp Effort & Inspection: normal respiratory effort, able to speak in complete sentences, normal respiratory pattern, no audible wheezes and no cough Cardio Jugular venous distension: no JVD GI Inspection: Yes normal to inspection Back/Spine/Pelvis Other: There is a very well-healed scar in the posterior lumbar spine delineating previous surgery. The scar is very well-healed. Loading test is positive bilaterally. Flexing forward and flexing backwards aggravate her pain however flexing backwards aggravates her pain more than flexing forward. Neuro General: patient oriented x3, gait normal and No confusion Cranial nerves: Yes CN's II-XII intact bilaterally, Yes Equal, round and reactive pupils present, Yes Normal hearing present and Yes Ability to bilaterally elevate shoulders present Speech: No Abnormal speech present Gait exam (Neuro): Normal gait present Motor exam (neuro): 5/5 motor strength present throughout Sensory Exam: No Sensory deficit (Neuro) Extrem General: No pedal edema Psych Speech and movement: Normal speech and movement present Affect: normal affect Attitude: cooperative Thought process: Normal thought process present Thought content: Normal thought content present Insight: Good insight present (Psych) Judgement: Good judgement present (Psych) Quality Reporting (2019) Adult ([facility] 138/06/25/68) Smoking risk assessment performed?: Yes Patient Tobacco Use Status: Former Tobacco user Assessment & Plan Assessment & Plan (1) Postlaminectomy syndrome of lumbar region: Code(s): M96.1 - Postlaminectomy syndrome, not elsewhere classified Category: Medical (2) Chronic pain syndrome: Code(s): G89.4 - Chronic pain syndrome Category: Medical Plan In the past I have offered this patient spinal cord stimulation trial however she adamantly refused. Caudal IFEOMA with catheter relieves her pain temporarily. Second IFEOMA with catheter relieved her pain even less than the 1st procedure. L3-L4 does ramus L5 diagnostic resulted in pain improvement 8 hours of pain relief on lidocaine without any steroids. This is very good results. However her insurance company denied sprint procedure for her. Therefore she is on continuous medical pain management. It looks like gabapentin 800 mg t.i.d. provide her very good pain relief. I will refill this medication as below. I will see her in 1 year. Medications: Refilled gabapentin 800 mg PO TID 30 days 90 tabs 11RF Patient Instructions: lead tank mechanic Vaishali Pereyra who is certified interpreter translator helped us to maintain this conversation in Czech. Coding Level of Care Code Est Pt Level 3 (21743) Diagnoses Postlaminectomy syndrome of lumbar region M96.1 Chronic pain syndrome G89.4
[2024-06-27 11:10] VITALS: BP 159/78; PULSE 82; O2SAT 98; BMI 27.1
--- OUTSIDE RECORDS SUMMARY | 2024-06-27 12:36 | XMS_ITS | Clinical Summary ---
Author Organization [facility] Address [address] [place] [address], [place] [address] Care Team Providers Care Billet Heater Operator Name Role Phone Meka Pena MD Primary Care Provider [phone] Allergies Active Allergy Reactions Criticality Noted Date [...] patient's age to complete this topic Insurance [facility] MEDICAID [facility] MEDICAID Care Teams Billet Heater Operator Relationship Specialty Start Date End Date Meka Pena MD [address] [place] [address] PCP - General Internal Medicine 12/11/21
--- OUTSIDE RECORDS SUMMARY | 2024-06-27 12:36 | XMS_ITS | Encounter Summary ---
Author Organization [employer] Address [address] [facility] [address] [place] [address] Care Team Providers Care Sheet Metal Duct Installer Name Role Phone Unavailable Primary Care Provider [...]
--- OUTSIDE RECORDS SUMMARY | 2024-06-27 12:36 | XMS_ITS | Encounter Summary ---
Author Organization [employer] Address [address] [facility] 7t [place] [address] Care Team Providers Care Chicken Boner Name Role Phone Unavailable Primary Care Provider Unavailabl e Encounter Details Date Type Department Care Team (Latest Contact Info) Description 06/15/[address] [facility] CONVERSIONS Dental, Provider, DDS Social History [...]
--- OUTSIDE RECORDS SUMMARY | 2024-06-27 12:36 | XMS_ITS | Encounter Summary ---
Author Organization [employer] Address [address] [place] [address] 7t [place] [address] Care Team Providers Care Hospital Chief Executive Officer Name Role Phone Unavailable Primary Care Provider Unavailabl e Encounter Details Date Type Department Care Team (Latest Contact Info) Description 03/12/2022 Abstract [facility] CONVERSIONS Dental, Provider, DDS Social History Tobacco [...]
--- OUTSIDE RECORDS SUMMARY | 2024-06-27 12:36 | XMS_ITS | Clinical Summary ---
Author Organization [employer] Address [address] [facility] [address] [place] [address] Care Team Providers Care Garnetter Name Role Phone Unavailable Primary Care Provider [...] 1 tablet at bed time. 8 Active aspirin-acetam inophen-caffei ne (Excedrin Migraine) 250-250-65 MG tablet 1 tab po q8hrs as needed for headache 9 Active hydroCHLOROthi azide (HYDRODiuril) 25 MG tablet Take 1 tablet [...] Active beta carotene (vitamin A) 3 MG (67108 UT) capsule Take by mouth in the morning. 3 Active Diclofenac Sodium 1 % gel [...] PAIN NOT CONTROLLED WITH ONE 4 Active gabapentin (Neurontin) 800 MG tablet Take 1 tablet by mouth every 6 (six) hours during the day. 5 Active gabapentin (Neurontin) 100 MG capsule Take by mouth. 025 Discontin ued(Ineff ective) gabapentin (Neurontin) 600 MG tablet Take 600 mg by mouth 3 times daily. 3 025 Discontin ued(Ineff ective) Active Problems Problem Noted Date Diagnosed Date Dental plaque 11/26/2022 Dental caries 11/26/2022 Encounters Date Type Department Care Team Description 05/30/2024 10:30 AM EST Office Visit [facility] OPTOMETRY [address] [place] [address] [id number] Elliott, Lianna, OD Lattice degeneration of left retina (Primary Dx); Retinal drusen, right; Meibomian gland disease, unspecified laterality; Combined forms of age-related cataract of both [...] 07/23/2021, 09/28/2020, Additional history exists Tobacco Screening 06/21/2025 06/21/2024 Influenza Vaccine Completed 01/16/2024, , 05/16/2019, Additional [...] - Both Eyes (05/30/2024 11:26 AM EST) Lianna Dial, OD - 05/30/2024 11:26 AM EST Right [...] next exam. Lianna Gallagher OD OPHTH PHOTOGRAPHY Edited from Last 3 Months Insurance [facility] STANDARD [facility] MEDICAID STAND ADULT
--- OUTSIDE RECORDS SUMMARY | 2024-06-27 12:36 | XMS_ITS | Encounter Summary ---
Author Organization [employer] Address [address] [facility] 7t [place] [address] Care Team Providers Care Guest Services Manager Name Role Phone Unavailable Primary Care Provider Unavailabl e Reason for Visit * Reason Comments Lattice degeneration Encounter Details Date Type Department Care Team ([facility] st Contact Info) Description 05/30/2024 10:30 AM EST Office Visit [facility] OPTOMETRY [address] [place] [address] Lianna Gallagher, OD [address] [place] [address] Lattice degeneration of left retina (Primary Dx); [...] AM EDT documented as of this encounter Progress Notes * Lianna Gallagher, OD - 05/30/2024 10:30 AM EST Eye Care Progress Note Patient ID: Abida Farfan is a 64 y.o. female. Chief Complaint Lattice degeneration HPI Here for a complete eye exam to monitor lattice degeneration in the left eye. Today the patient complains of irritation like sand with associated crusting in both eyes for the past month. She triedtreating with artificial tears twice a day with little relief. She denies blur or other vision complaints. Her last eye exam was here on 06/04/2023. Last edited by Lianna Gallagher, ROBERT on 06/21/2024 10:36 AM. Current Outpatient Medications Medication Sig Dispense Refill gabapentin (Neurontin) 800 MG tablet Take 1 tablet by mouth every 6 (six) hours during the day. acetaminophen (Tylenol) 500 MG tablet take 1 tablet (500MG) by oral route every 6 hours as needed amLODIPine (Norvasc) 5 MG tablet Take 1 tablet by mouth at bed time. aspirin 81 MG chewable tablet Chew 1 tablet at bed time. imlfnzu-lyuuqimrewygw-rupijjwj (Excedrin Migraine) 250-250-65 MG tablet 1 tab po q8hrs as needed for headache beta carotene (vitamin A) 3 MG (35477 UT) capsule Take by mouth in the morning. cevimeline (Evoxac) 30 MG capsule START BY TAKING ONE CAPSULE BY MOUTH ONCE DAILY AND INCREASE BY 1CAPSULE A DAY EVERY WEEK UNTIL UP TO 1 CAPSULE 3 TIMES DAILY Diclofenac Sodium 1 % gel APPLY 2 GRAMS TOPICALLY TO PAINFUL JOINTS TWICE DAILY docusate sodium (Colace) 100 MG capsule TAKE 1 CAPSULE BY MOUTH TWICE DAILY NEEDED FOR CONSTIPATION FOR 10 DAYS estradiol (Climara) 0.025 MG/24HR APPLY 1 PATCH TOPICALLY ONCE A WEEK hydroCHLOROthiazide (HYDRODiuril) 25 MG tablet Take 1 tablet by mouth at bed time. ibuprofen 600 MG tablet TAKE 1 TABLET BY MOUTH EVERY 6 HOURS FOR 7 DAYS lidocaine (Lidoderm) 5 % patch APPLY ONE PATCH TOPICALLY TO CLEAN, DRY SKIN DAILY NEEDED FOR MILD PAIN. LEAVE ON FOR 12 HOURS THEN REMOVE. MUST WAIT AT LEAST 12 HOURS BEFORE APPLYING PATCH(ES) AGAIN. lisinopril 20 MG tablet Take 1 tablet by mouth. loratadine (Claritin) 10 MG tablet Take 1 tablet by mouth at bed time. Melatonin 5 MG capsule take one daily at bedtime meloxicam (Mobic) 15 MG tablet Take 1 tablet by mouth at bed time. metoprolol tartrate (Lopressor) 100 MG tablet Take 1 tablet by mouth every 12 (twelve) hours. omeprazole (PriLOSEC) [address] capsule Take 1 capsule by mouth every 12 (twelve) hours. oxyCODONE (Roxicodone) 5 MG immediate release tablet TAKE 1 TABLET BY MOUTH EVERY 6 HOURS NEEDEDFOR PAIN FOR 3 DAYS. MAY TAKE 2 TABLETS EVERY 6 HOURS IF PAIN NOT CONTROLLED WITH ONE polyvinyl alcohol (Liquifilm Tears) 1.4 % ophthalmic solution one drop in each eye 3 to 4 times perday traZODone (Desyrel) 50 MG tablet Take 1 tablet by mouth at bed time. No current facility-administered medications for this visit. Past Medical History: Diagnosis Date Arthritis Back problem High blood pressure Lupus Swelling of foot joint, unspecified laterality Past Surgical History: Procedure Laterality Date SPINE SURGERY secondary to sciatica Family History Problem Relation Name Age of Onset Blindness Sister Corneal dystrophy Social History Socioeconomic History Marital status: Unknown Spouse name: Not on file Number of children: Not on file Years of education: Not on file Highest education level: Not on file Occupational History Not on file Tobacco Use Smoking status: Former Types: Cigarettes Smokeless tobacco: Never Vaping Use Vaping status: Unknown Substance and Sexual Activity Alcohol use: Not on file Drug use: Defer Sexual activity: Defer Other Topics Concern Not on file Social History Narrative Not on file Social Drivers of Health Food Insecurity: Not on file Transportation Needs: Not on file Intimate Partner Violence: Not on file Housing Stability: Not on file Allergies Allergen Reactions Amoxicillin Morphine ROS Positive for: Eyes Negative for: Constitutional, Gastrointestinal, Neurological, Skin, Genitourinary, Musculoskeletal,HENT, Endocrine, Cardiovascular, Respiratory, Psychiatric, Allergic/Imm, Heme/Lymph Last edited by Corrine Mosley on 05/30/2024 10:41 AM. Base Eye Exam Visual Acuity (Snellen - Linear) Right Left Both Dist cc 20/20 20/20 Near cc 20/20 Correction: Glasses Tonometry (iCare , 10:44 AM) Right Left Pressure 17 15 Pupils Pupils APD Right PERRL None Left PERRL None Visual Malone (Counting fingers) Left Right Full Full Extraocular Movement Right Left Full Full Neuro/Psych Oriented x3: Yes Dilation Both eyes: 1% Tropicamide @ 10:59 AM Slit Lamp and Fundus Exam External Exam Right Left External Normal Normal Slit Lamp Exam Right Left Lids/Lashes 1-2+ MGD 1-2+ MGD Conjunctiva/Sclera White and quiet White and quiet Cornea 1+ SPK Trace-1+ SPK Anterior Chamber Deep and quiet Deep and quiet Iris Flat Flat Lens 1+ NS, 1+ ACC, +2 PCC 1+ NS, 2+ ACC, 1+ PCC Fundus Exam Right Left Vitreous Syneresis Syneresis Disc [place] and Distinct [place] and Distinct C/D Ratio Vertical 0.40 0.40 C/D Ratio Horizontal 0.40 0.40 Macula Flat and Intact Flat and Intact Vessels Normal Normal Periphery Small clump of drusen superotemporal to ONH, no holes/breaks/tears 360 degrees Lattice degeneration at 3:00 and from 5:00-7:00 in the periphery, No detachments 360 degrees Refraction Wearing Rx Sphere Cylinder Pandora Add Right +1.00 -0.75 165 +2.25 Left +2.00 -0.50 140 +2.25 Manifest Refraction Sphere Cylinder Pandora Dist VA Add Right +1.00 -0.50 145 20/20 +2.25 Left +1.50 Sphere 20/20 +2.25 Near VA Both: 20/20 Final Rx Sphere Cylinder Pandora Dist VA Add Right +1.00 -0.50 145 20/20 +2.25 Left +1.50 Sphere 20/20 +2.25 Expiration Date: 05/30/2026 Assessment/plan: Diagnoses and all orders for this visit: 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 Lattice degeneration is a thinning of the peripheral retina. Thiscondition does not interfere with central vision or cause any symptoms. Complications of having thin areas in the retina include an increased risk of developing tears in the retina which could lead to a retinal detachment. The patient was educated to [facility] if they experience a sudden onset of flashes, floaters, or decreased vision as these are the symptoms of a possible retinal complication. Otherwise, will monitor in 1 year. Retinal drusen, right Small isolated clump of drusen in the right eye that is not visually significant. No treatment necessary. Will monitor at her next exam. - Fundus Photos - OU - Both Eyes Meibomian gland disease, unspecified laterality The patient was educated that there are glands in the eyelids that secrete oil to mix with the tearlayer over the cornea. These glands are called meibomian glands. The patient was educated that meibomian gland dysfunction (MGD) occurs when the glands are not secreting enough oil or when the oil they secrete is of poor quality. Most often, the oil gland openings get plugged up so that less oil comes out of the glands. The oil that does make it out of the glands can be granular (crusty) or otherwise abnormal, and can cause irritation. The patient was educated that this condition can cause blurry vision and ocular discomfort. The patient was educated to begin performing warm compresses using a washcloth and warm water to help the glands better express. She was given a handout of OTC artificial tears to purchase and use 3 to 4 times a day in both eyes. Will monitor at her next full eye exam. 4. Combined forms of age-related cataract of both eyes Not visually significant to warrant treatment at this time. Patient educated on progressive nature of cataracts. Will monitor at their next exam. 5. Presbyopia of both eyes Glasses prescription updated and given. Will monitor at the patient's next full eye exam. Lianna Gallagher, OD 06/21/2024, 10:43 AM Student Name: Corrine Mosley I attest that I was physically present with the optometry student. I personally saw and evaluated the patient and performed my own history and examination. I have reviewed, verified, and revised the documented findings as necessary and agree with the content and plan as written. Research Dietitian Source: ___ None _x__ Bilingual Staff ___ Qualified Staff Aemt ___ Telephone Research Dietitian; ID# ___ Research Dietitian brought by patient (family member, friend, CHECK EXAMINER, etc) ___ In person bulldozer operator ___ Ipad Research Dietitian; ID#: Language Spoken During Exam: _Spanish documented in this encounter Plan of Treatment Not on [...] monitor at her next exam. us Lianna Elliott OD OPHTH PHOTOGRAPHY Edited documented in this encounter Visit Diagnoses Diagnosis Lattice degeneration of left retina- Primary Retinal drusen, right Meibomian gland disease, unspecified laterality Combined forms of age-related cataract of both eyes Presbyopia of both eyes documented in this encounter
== END 2024-06-27 11:21 | disposition home or self-care (01) ==
PROVIDERS: PCP Internal Medicine; Visit Provider Anesthesiology
DX: M96.1 Postlaminectomy syndrome, not elsewhere classified (principal); G89.4 Chronic pain syndrome
CPT/HCPCS: 99213

== ENCOUNTER → 2024-06-27 10:58 | Outpatient (BNVA) | payer OTHER, SELFPAY | PROVIDERS: PCP Internal Medicine; Visit Provider Anesthesiology | DX: M96.1 Postlaminectomy syndrome, not elsewhere classified (principal); G89.4 Chronic pain syndrome | CPT/HCPCS: 99212 ==

== ENCOUNTER 2024-07-26 10:16 | Outpatient (AMB) | payer OTHER, SELFPAY ==
--- NOTE | 2024-07-26 10:21 | MHC.OFFVISWM ---
VS Expanded 07/26/24 10:22 BP 145/77 H Blood Pressure Location Lt brachial Blood Pressure Position Sitting Pulse Source Pulse Oximeter Height 5 ft 4 in Weight 154 lb 3.2 oz BMI 26.5 Body Fat % 30.5 Body Fat Mass 47.0 Fat Free Mass 107.2 Visceral Fat Rating 8.0 Body Water % 49.1 Body Water Mass 75.6 Muscle Mass/Score 101.6 Basal Metabolic Rate/Score 1,427 Intake Visit Reasons: (OV) PO LSG 05/22/21 *See Comments* Steel Layout Worker Required: Yes Steel Layout Worker Name: hospital cmi Allergies morphine Allergy (Intermediate, Verified 07/26/24 10:21) dizzy,sick amoxicillin [AMOXICILLIN] Allergy (Mild, Verified 07/26/24 10:21) GENERALIZED SWELLING & ITCHY RASH, swelling, rash,diff. breathing Medication List - Last Reconciled 07/26/24 by LAI Castanon arm brace (Wrist Brace) As directed calcium carbonate-vitamin D3 600 mg-5 mcg (200 unit) 2 tabs PO DAILY clotrimazole 1% (Antifungal (clotrimazole)) 1 appl topical BID gabapentin 800 mg PO TID 30 days multivitamin 1 tab PO DAILY HPI Comments Details: Patient is a pleasant 64-year-old female who returns to the office today in follow-up. She is approximately 3 years 2 months post sleeve gastrectomy performed on 05/22/2021. She was last seen in the office in April 2023 with a weight of 138 lb. Weight today is 154.2 lb with a BMI of 26.5. She states that since last being seen in April 2023, she has gained some weight. She does this somewhat seasonally as her outdoor activity is limited in the winter months. With the change in weather, she has now resumed her walking which she does approximately 6 miles per day. She additionally is having difficulty with excess skin of the abdomen. This is causing a rash underneath the abdominal fold. She would have a rash 2-3 times per month. Treated with [id number]-nmjxzfd creams and powders. She states that when it happens it is quite painful and itchy as well as malodorous. She is requiring 2-3 times per day washing of the area during the winter months and 4-5 times per day during the summer months. meal plan: Orgain 2 scoops in 8 oz almond milk macedonian yogurt or skip meal with protein and veg, not measuring Exercise plan: 3 days per week exercising walking outside or elliptical at home 450-550 faith per day Any post op complications: none LORI: never DM: never HTN: resolved Hyperlipidemia: never GERD:?0-5 scale ??0 = no symptoms ??1 = symptoms noticeable but not bothersome 2 =symptoms bothersome but not daily ? 3 = symptoms bothersome and daily 4 = symptoms affect daily activities 5 = symptoms are incapacitating, unable to do daily activities ? How bad is the heartburn: 2 ? Heartburn while lying down: 0 ? Heartburn when standing up: 0 ? Heartburn after meals: 0 ? Does heartburn change your diet: 0 ? Does heartburn wake you up from sleep: 0 ? Do you have difficulty swallowin ? Do you have pain with swallowin ? If you take medicine for your reflux, does this affect your daily life: 0 Satisfaction with present condition - satisfied or not satisfied: satisfied [facility] Medical History Ovarian mass, left Vaginal bleeding Myoma Hx of Sjogren's disease GERD (gastroesophageal reflux disease) Hyperparathyroidism Moderate recurrent major depression Morbid obesity Right shoulder pain Acquired spondylolysis of lumbar spine Dizziness Chronic fatigue Essential hypertension Chronic pain syndrome Postlaminectomy syndrome of lumbar region Sjogrens syndrome Primary osteoarthritis of hands, bilateral Fatty liver Arthritis Anxiety Depression On beta maye at home Hypertension Surgical History History of total hysterectomy Hx of bariatric surgery Hx of colonoscopy Hx of esophagogastroduodenoscopy Hx of section History of surgery History of tubal ligation Family History Father No problems noted. Mother Hypertension Bone cancer Sister Breast cancer Blind Family/Other Mental health disorder Substance use disorder Social History Housing: Apartment Are you a primary assisted living care manager to a significant other at home: No Do you presently have visiting nurse or other home services: No Alcohol intake: never Patient Tobacco Use Status: Former Tobacco user Tobacco use type: Cigarette e-Cigarette/Vaping Use: Never Used Second Hand Smoke Exposure: No Advance Directives Date on File: 06/08/20 service: No Current occupational status: disabled Cognitive needs: No Hearing needs: No Vision needs: Yes Physical Exam Vital Signs: Last Vital Signs BP 145/77 H 07/26/24 10:22 BMI result Body Mass Index 26.5 Const General: healthy appearing and no acute distress Resp Effort & Inspection: normal respiratory effort Auscultation: clear to auscultation bilaterally Cardio Rate: regular rate Rhythm: regular rhythm GI Auscultation: normal bowel sounds Skin Other: Pannus grade 2, without active rash Extrem General: Yes normal to inspection Quality Reporting (2019) Adult ([facility] 138/06/25/68) Smoking risk assessment performed?: Yes Patient Tobacco Use Status: Former Tobacco user Assessment & Plan Assessment & Plan (1) S/P laparoscopic sleeve gastrectomy: Code(s): Z98.84 - Bariatric surgery status Category: Surgical Plan: Change meal plan: Orgain 2 scoops in 8 oz almond milk macedonian yogurt or another shake with 1 scoop meal with 6 forks protein and 6 forks veg Check 3 year postop labs. Encouraged to do exercise 5 days per week, walking outside when she is able. She enjoys walking 6 miles per day. Utilizing her elliptical in house when the weather is raining. Return to clinic 4-5 weeks. (2) Excess skin: Code(s): L98.7 - Excessive and redundant skin and subcutaneous tissue Category: Medical Plan: Patient with excess skin and significant pannus. She reports rash. The rash is painful with itching, odor. This has affected her ADLs as she is requiring 3-4 showers per day. We will use antifungal cream topically and manage accordingly. We will follow frequency. Orders: Orders Complete Blood Count Auto Diff Today E21.3 - Hyperparathyroidism, unspecified, E50.9 - Vitamin A deficiency, unspecified, I10 - Essential (primary) hypertension, Z98.84 - Bariatric surgery status Lipid Panel Today E21.3 - Hyperparathyroidism, unspecified, E50.9 - Vitamin A deficiency, unspecified, I10 - Essential (primary) hypertension, Z98.84 - Bariatric surgery status IRON PROFILE Today E21.3 - Hyperparathyroidism, unspecified, E50.9 - Vitamin A deficiency, unspecified, I10 - Essential (primary) hypertension, Z98.84 - Bariatric surgery status Comprehensive Met. Panel Today E21.3 - Hyperparathyroidism, unspecified, E50.9 - Vitamin A deficiency, unspecified, I10 - Essential (primary) hypertension, Z98.84 - Bariatric surgery status Zinc Today E21.3 - Hyperparathyroidism, unspecified, E50.9 - Vitamin A deficiency, unspecified, I10 - Essential (primary) hypertension, Z98.84 - Bariatric surgery status Vitamin A Today E21.3 - Hyperparathyroidism, unspecified, E50.9 - Vitamin A deficiency, unspecified, I10 - Essential (primary) hypertension, Z98.84 - Bariatric surgery status TSH reflex Free T4 Today E21.3 - Hyperparathyroidism, unspecified, E50.9 - Vitamin A deficiency, unspecified, I10 - Essential (primary) hypertension, Z98.84 - Bariatric surgery status Ferritin Today E21.3 - Hyperparathyroidism, unspecified, E50.9 - Vitamin A deficiency, unspecified, I10 - Essential (primary) hypertension, Z98.84 - Bariatric surgery status Insulin Today E21.3 - Hyperparathyroidism, unspecified, E50.9 - Vitamin A deficiency, unspecified, I10 - Essential (primary) hypertension, Z98.84 - Bariatric surgery status Hemoglobin A1c Today E21.3 - Hyperparathyroidism, unspecified, E50.9 - Vitamin A deficiency, unspecified, I10 - Essential (primary) hypertension, Z98.84 - Bariatric surgery status Vitamin B12 and Folate Today E21.3 - Hyperparathyroidism, unspecified, E50.9 - Vitamin A deficiency, unspecified, I10 - Essential (primary) hypertension, Z98.84 - Bariatric surgery status C Reactive Protein Today E21.3 - Hyperparathyroidism, unspecified, E50.9 - Vitamin A deficiency, unspecified, I10 - Essential (primary) hypertension, Z98.84 - Bariatric surgery status Vitamin B1 Today E21.3 - Hyperparathyroidism, unspecified, E50.9 - Vitamin A deficiency, unspecified, I10 - Essential (primary) hypertension, Z98.84 - Bariatric surgery status Vitamin D 25-OH Total Today E21.3 - Hyperparathyroidism, unspecified, E50.9 - Vitamin A deficiency, unspecified, I10 - Essential (primary) hypertension, Z98.84 - Bariatric surgery status Medications: New clotrimazole 1% (Antifungal (clotrimazole)) 1 appl topical BID 45 grams 3RF
[2024-07-26 10:22] VITALS: BP 145/77; BMI 26.5
--- OUTSIDE RECORDS SUMMARY | 2024-07-26 12:20 | XMS_ITS | Encounter Summary ---
Author Organization [employer] Address [address] [facility] 7t [place] [address] Care Team Providers Care Inspector Watch Parts Name Role Phone Unavailable Primary Care Provider Unavailabl e Encounter Details Date Type Department Care Team (Late st Contact Info) Description 07/25/2024 9:00 AM EDT Office Visit [facility] OPTOMETRY [address] [place] [address] Lianna Gallagher, ROBERT [address] [facility] [place] [address] Presbyopia of both eyes (Primary Dx) Social History Tobacco Use Types Packs/Day Years Used Date Smoking Tobacco: Former Cigarettes Smokeless Tobacco: Never Comments Unknown Sex and Gender Information Value Date Recorded Sex Assigned at Female 03/03/2022 10:19 AM EDT Legal Sex Female 10:19 AM EDT Gender Identity Female 03/03/2022 10:19 AM EDT Sexual Orientation Straight 03/03/2022 10 :19 AM EDT documented as of this encounter Progress Notes * Lianna Gallagher OD - 07/25/2024 9:00 AM EDT MH glasses were dispensed. documented in this encounter Plan of Treatment Not on file documented as of this encounter Visit Diagnoses Diagnosis Presbyopia of both eyes- Primary documented in this encounter
--- OUTSIDE RECORDS SUMMARY | 2024-07-26 12:20 | XMS_ITS | Clinical Summary ---
Author Organization [facility] Facility Address [address] [place] [address], [place] [address] Care Team Providers Care Rn Admissions Name Role Phone Meka Pena MD Primary Care Provider [phone] Allergies Active Allergy Reactions Criticality Noted Date [...] patient's age to complete this topic Insurance [facility] MEDICAID [facility] MEDICAID Care Teams Rn Admissions Relationship Specialty Start Date End Date Meka Pena MD [address] [place] [address] PCP - General Internal Medicine 12/11/21
--- OUTSIDE RECORDS SUMMARY | 2024-07-26 12:21 | XMS_ITS | Clinical Summary ---
Author Organization [employer] Address [address] [facility] 7[address] [place] [address] Care Team Providers Care Casing In Line Feeder Name Role Phone Unavailable Primary Care Provider [...] q8hrs as needed for headache 9 Active hydroCHLOROthia zide (HYDRODiuril) 25 MG tablet Take [...] Active beta carotene (vitamin A) 3 MG (31360 UT) capsule Take by mouth in the [...] (six) hours during the day. 5 Active Active Problems Problem Noted Date Diagnosed Date Dental plaque 11/26/2022 Dental caries 11/26/2022 Encounters Date Type Department Care Team Description 07/25/2024 9:00 AM EDT Office Visit [facility] OPTOMETRY [address] [place], [place] [id number] Elliott, Lianna, OD Presbyopia of both eyes (Primary Dx) 05/30/2024 10:30 AM EST Office Visit [facility] OPTOMETRY [address] [place], [place] [id number] Elliott, Lianna, OD Lattice degeneration of left [...] Cancer Screening 1990 HPV/Cotest 1990 Mammogram 2000 Zoster Vaccines (1 of 2) 2010 Pneumococcal [...] Additional history exists Tobacco Screening 06/21/2025 06/21/2024 DTaP/Tdap/Td Vaccines (2 - Td or Tdap) 06/15/2034 06/15/2024, 04/19/2007 Influenza Vaccine Completed 01/16/2024, , 05/16/2019, Additional [...] PHOTOGRAPHY Edited from Last 3 Months Insurance [facility] STANDARD [facility] MEDICAID STAND ADULT
--- OUTSIDE RECORDS SUMMARY | 2024-07-26 12:21 | XMS_ITS | Encounter Summary ---
Author Organization [employer] Address [address] [place] [address] [address] [place] [address] Care Team Providers Care Telephone Service Representative Name Role Phone Unavailable Primary Care Provider Unavailabl e Encounter Details Date Type Department Care Team (Latest Contact Info) Description 03/12/2022 Abstract [facility] CONVERSIONS Dental, Provider, DDS Social History Tobacco [...]
--- OUTSIDE RECORDS SUMMARY | 2024-07-26 12:21 | XMS_ITS | Encounter Summary ---
Author Organization [employer] Address [address] [facility] 7t [place] [address] Care Team Providers Care Food Technology Teacher Name Role Phone Unavailable Primary Care Provider Unavailabl e Encounter Details Date Type Department Care Team (Latest Contact Info) Description 06/15/2019 Abstract [facility] CONVERSIONS Dental, Provider, DDS Social History [...]
== END 2024-07-26 11:28 | disposition home or self-care (01) ==
LOC: HO.HBS 10:17
PROVIDERS: PCP Internal Medicine; Visit Provider Physician Assistant Surgical
DX: L98.7 Excessive and redundant skin and subcutaneous tissue (principal); Z90.3 Acquired absence of stomach [part of]; Z98.84 Bariatric surgery status
CPT/HCPCS: 99214; G2211

== ENCOUNTER → 2024-07-26 10:16 | Outpatient (BNVA) | payer OTHER, SELFPAY | PROVIDERS: PCP Internal Medicine; Visit Provider Physician Assistant Surgical | DX: L98.7 Excessive and redundant skin and subcutaneous tissue (principal); Z98.84 Bariatric surgery status | CPT/HCPCS: 99212 ==

== ENCOUNTER 2024-08-10 11:00 | Outpatient (REF) | payer OTHER, SELFPAY ==
--- NOTE | ~2024-08-10 | MM_ITS ---
EXAMINATION: DXA BONE DENSITY AXIAL HISTORY: Estrogen deficiency TECHNIQUE: Btiques Dual energy absorptiometry (DEXA) of the lumbar spine, total left hip, and femoral neck was performed. COMPARISON: Comparison is made with the prior examination dated 07/02/2022. FINDINGS: The bone mineral density of the lumbar spine is 1.066 with a T-score of -0.9, and a Z-score of 0.4. This is indicative of normal bone mineral density. This represents a BMD change of 9.0% compared to the prior exam. This is statistically significant. The bone mineral density of the left total hip is 0.773 with a T-score of -1.9, and a Z-score of -0.9. This is indicative of osteopenia. This represents a BMD change of -4.0% compared to the prior exam. This is not statistically significant. The bone mineral density of the left femoral neck is 0.776 with a T-score of -1.9, and a Z-score of -0.6. This is indicative of osteopenia. This represents a BMD change of -5.1% compared to the prior exam. FRACTURE RISK: The FRAX index suggests a ten year probability of major osteoporotic fracture of 7.3%, and of hip fracture 1.1%. MM/XR DEXA axial skeleton IMPRESSION: Based on bone mineral density, and according to World Health Organization (WHO) criteria, the diagnosis is consistent with osteopenia. All bone density values are in grams per centimeter squared (g/cm2). Statistically, 68% of repeat scans fall within 1 SD (+/- 0.010 g/cm2 for AP spine L1-L4) and 1 SD (+/- 0.012 g/cm2 for femur total) FRAX is a trademark of the [employer] Metabolic Bone Disease, a World Health Organization (WHO) Collaborating Center. Electronically signed by: Chad Nguyen MD 08/10/2024 12:34 PM EDT
--- OUTSIDE RECORDS SUMMARY | 2024-08-10 12:58 | XMS_ITS | Clinical Summary ---
Author Organization [facility] Facility Address [address] [place] [address], [place] [address] Care Team Providers Care Pharmacy Care Coordinator Name Role Phone Meka Pena MD Primary Care Provider [phone] Allergies Active Allergy Reactions Criticality Noted Date [...] Colorectal Cancer Screening: Sigmoidoscopy 2009 Influenza Vaccine (Season Ended) 2025 Hepatitis B Vaccine Aged Out No longe r eligible based on patient's age to complete this topic Insurance [facility] MEDICAID [facility] MEDICAID Care Teams Pharmacy Care Coordinator Relationship Specialty Start Date End Date Meka Pena MD [address] [place] [address] PCP - General Internal Medicine 12/11/21
--- OUTSIDE RECORDS SUMMARY | 2024-08-10 12:59 | XMS_ITS | Encounter Summary ---
Author Organization [employer] Address [address] [facility] [address] [place] [address] Care Team Providers Care Product Safety Lead Name Role Phone Unavailable Primary Care Provider Unavailabl e Encounter Details Date Type Department Care Team (Latest Contact Info) Description 06/15/2019 Abstract [facility] CONVERSIONS Dental, Provider, DDS Social [...]
--- OUTSIDE RECORDS SUMMARY | 2024-08-10 12:59 | XMS_ITS | Encounter Summary ---
Author Organization [employer] Address [address] [place] [address] 7t [place] [address] Care Team Providers Care Rope Walker Name Role Phone Unavailable Primary Care Provider Unavailabl e Encounter Details Date Type Department Care Team (Latest Contact Info) Description 03/12/2022 Abstract [facility] CONVERSIONS Dental, Provider, DDS Social History Tobacco [...]
--- OUTSIDE RECORDS SUMMARY | 2024-08-10 12:59 | XMS_ITS | Clinical Summary ---
Author Organization [employer] Address [address] [facility] 7t [place] [address] Care Team Providers Care Hand Baseball Sewer Name Role Phone Unavailable Primary Care Provider [...] Active beta carotene (vitamin A) 3 MG (38695 UT) capsule Take by mouth in the [...] Description 07/25/2024 9:00 AM EDT Office Visit [facility] [address] [place], [place] [id number] Elliott, Lianna, OD Presbyopia of both eyes (Primary Dx) 05/30/2024 10:30 AM EST Office Visit [facility] [address] [place], [place] [id number] Elliott, Lianna, OD Lattice degeneration of left [...] PHOTOGRAPHY Edited from Last 3 Months Insurance [facility] STANDARD [facility] MEDICAID STAND ADULT
== END 2024-08-10 11:01 | disposition home or self-care (01) ==
LOC: HO.MAMMO 11:00
PROVIDERS: PCP Internal Medicine; Visit Provider Internal Medicine
DX: Z12.31 Encounter for screening mammogram for malignant neoplasm of breast (principal); Z13.820 Encounter for screening for osteoporosis; Z78.0 Asymptomatic menopausal state
CPT/HCPCS: 77063; 77067; 77080

== ENCOUNTER → 2024-08-10 11:30 | Outpatient (BNV) | payer OTHER, SELFPAY | PROVIDERS: PCP Internal Medicine; Visit Provider Radiology Diagnostic Radiology | DX: E28.39 Other primary ovarian failure (principal) | CPT/HCPCS: 77080 ==

== ENCOUNTER 2024-09-21 14:17 | Outpatient (AMB) | payer OTHER, SELFPAY ==
--- OUTSIDE RECORDS SUMMARY | 2024-09-21 14:38 | XMS_ITS | Clinical Summary ---
Author Organization [employer] Address [address] [facility] 7t [place] [address] Care Team Providers Care Flat Lock Operator Name Role Phone Unavailable Primary Care Provider [...] Active beta carotene (vitamin A) 3 MG (12742 UT) capsule Take by mouth in the [...] Description 07/25/2024 9:00 AM EDT Office Visit [facility] OPTOMETRY [address] [place] [address], [place] [address] Elliott, Lianna, OD Presbyopia of both eyes (Primary Dx) from Last 3 Months Immunizations Immunization Administration Dates Next Due Influenza injectable quadriv [...] Panel 1960 SDOH Screening 1960 Sigmoidoscopy 1960 Disability Screening 1960 Alcohol/Substance Use Screening 1972 Hepatitis C [...] patient's age to complete this topic Meningococcal B Vaccine Aged Out No l onger eligible based on patient's age to complete [...] Procedure Name Priority Date/Time Associated Diagnosis Comments PROPHYLAXIS - ADULT Routine 11/26/2022 9:00 AM EDT PERIODIC ORAL EVALUATION - ESTABLISHED PATIENT Routine 11/26/2022 9:00 AM EDT from Last 3 Months or Most Recently Relevant to Health Maintenance Insurance [facility] STANDARD [facility] DENTAL-[facility] MEDICAID STAND ADULT
--- OUTSIDE RECORDS SUMMARY | 2024-09-21 14:38 | XMS_ITS | Clinical Summary ---
Author Organization [facility] [employer] [facility] Facility Address [address] [place] [address], [place] [address] Care Team Providers Care Quality Control Tech Raw Materials Name Role Phone Meka Pena MD Primary Care Provider [phone] Allergies Active Allergy Reactions Criticality Noted Date [...] Comments Breast Cancer Screening 1960 Pneumococcal Vaccine: 50+ Ye ars (1 of 2 - PCV) 1979 Colorectal Cancer Screening: Annual FOBT 2009 Colorectal Cancer Screening: Colonoscopy 2009 Colorectal Cancer Screening: Sigmoidoscopy 2009 Influenza Vaccine (Season Ended) 2025 Hepatitis B Vaccine Aged Out No longe r eligible based on patient's age to complete this topic Insurance [facility] Medicaid [facility] Medicaid Care Teams Quality Control Tech Raw Materials Relationship Specialty Start Date End Date Meka Pena MD [address] [place] [address] PCP - General Internal Medicine 12/11/21
--- OUTSIDE RECORDS SUMMARY | 2024-09-21 14:38 | XMS_ITS | Encounter Summary ---
Author Organization [employer] Address [address] [place] [address] 7t [place] [address] Care Team Providers Care Operating Room Technologist Name Role Phone Unavailable Primary Care Provider Unavailabl e Encounter Details Date Type Department Care Team (Latest Contact Info) Description 03/12/2022 Abstract [facility] CONVERSIONS Dental, Provider, DDS Social History [...]
--- OUTSIDE RECORDS SUMMARY | 2024-09-21 14:39 | XMS_ITS | Encounter Summary ---
Author Organization [employer] Address [address] [place] [address] 7t [place] [address] Care Team Providers Care Moisture Conditioner Operator Name Role Phone Unavailable Primary Care Provider Unavailabl e Encounter Details Date Type Department Care Team (Latest Contact Info) Description 06/15/[address] [facility] CONVERSIONS Dental, Provider, DDS Social [...]
[2024-09-21 14:49] VITALS: BP 120/92; PULSE 76; RESP 24; TEMP 37.2; O2SAT 97; BMI 27.1
--- NOTE | 2024-09-21 14:49 | MHC.PC.OV ---
Vital Signs 09/21/24 14:49 Height 5 ft 4 in Weight 157 lb 13.616 oz BMI 27.1 BP 120/92 H Blood Pressure Location Lt brachial Position Sitting Respiration 24 H Pulse 76 Pulse Source Pulse Oximeter Temp 98.9 F Temp Source Oral Pulse Oximetry (%) 97 Oxygen Delivery Method Room Air Intake Visit Reasons: Knee pain Small Business Sales Representative Required: Yes Small Business Sales Representative Language: Retail Marketing Specialist Name: Used tablet- [id number] Kimberley Accompanied by: Self / Same As Patient Allergies morphine Allergy (Intermediate, Verified 09/21/24 15:15) dizzy,sick amoxicillin [AMOXICILLIN] Allergy (Mild, Verified 09/21/24 15:15) GENERALIZED SWELLING & ITCHY RASH, swelling, rash,diff. breathing Medication List - Last Reconciled 09/21/24 by JESUS Armstrong arm brace (Wrist Brace) As directed calcium carbonate-vitamin D3 600 mg-5 mcg (200 unit) 2 tabs PO DAILY clotrimazole 1% (Antifungal (clotrimazole)) 1 appl topical BID gabapentin 800 mg PO TID 30 days multivitamin 1 tab PO DAILY Tobacco use date assessed: 09/21/24 Fall risk assessment: No Falls in past year Last assessed Fall Risk: 09/21/24 Dental Screening Dental Screen Date: 09/21/24 Did you have a dental visit in the last 12 months?: Yes Did you have a dental problem in the last 6 months where you did not have access to dental care?: No Was dental information given to patient?: Patient has dentist HPI Knee pain HPI Details The patient is a 64-year-old female presenting with knee pain. She details a three-week history of the knee pain, which is described as sharp with a burning sensation, sometimes causing leg numbness. The pain has become increasingly severe, affecting her ability to conduct normal daily activities and her sleep quality. She denies any acute injury or trauma to the knee but reports ongoing sciatica that has similarly affected the same side. Prior to today's consultation, she has attempted managing her discomfort with gabapentin and Tylenol without adequate relief. . [facility] Medical History Ovarian mass, left Vaginal bleeding Myoma Hx of Sjogren's disease GERD (gastroesophageal reflux disease) Hyperparathyroidism Moderate recurrent major depression Morbid obesity Right shoulder pain Acquired spondylolysis of lumbar spine Dizziness Chronic fatigue Essential hypertension Chronic pain syndrome Postlaminectomy syndrome of lumbar region Sjogrens syndrome Primary osteoarthritis of hands, bilateral Fatty liver Arthritis Anxiety Depression On beta maye at home Hypertension Surgical History History of total hysterectomy Hx of bariatric surgery Hx of colonoscopy Hx of esophagogastroduodenoscopy Hx of section History of surgery History of tubal ligation Family History Father No problems noted. Mother Hypertension Bone cancer Sister Breast cancer Blind Family/Other Mental health disorder Substance use disorder Social History Housing: Apartment Are you a primary child care to a significant other at home: No Do you presently have visiting nurse or other home services: No Alcohol intake: never Patient Tobacco Use Status: Former Tobacco user Tobacco use type: Cigarette e-Cigarette/Vaping Use: Never Used Second Hand Smoke Exposure: No Advance Directives Date on File: 06/08/20 service: No Current occupational status: disabled Cognitive needs: No Hearing needs: No Vision needs: Yes Questionnaire PHQ-9 Over the last 2 weeks, how often have you been bothered by any of the following problems? 1. Little interest or pleasure in doing things: nearly every day 2. Feeling down, depressed, or hopeless: nearly every day 3. Trouble falling or staying asleep, or sleeping too much: several days 4. Feeling tired or having little energy: nearly every day 5. Poor appetite or overeating: more than half the days 6. Feeling bad about yourself - or that you are a failure or have let yourself or your family down: nearly every day 7. Trouble concentrating on things, such as reading the newspaper or watching television: nearly every day 8. Moving or speaking so slowly that other people could have noticed. Or the opposite - being so fidgety or restless that you have been moving around a lot more than usual: nearly every day 9. Thoughts that you would be better off or of hurting yourself in some way: several days Total score: 22 Depression Screening Interpretation: Positive Depression Screening Done: Yes Source: Developed by Drs. Chad Randall, Juhi Bunch, Manjeet Gooden and colleagues, with an educational mayra from [facility]. Thrive Questionnaire Date Thrive assessed: 09/21/24 I am a: Patient What is your living situation today?: I have a steady place to live Within the past 12 months, did the food you bought not last and you didn't have the money to get more?: Never true Within the past 12 months, did you worry whether your food would run out before you got money to buy more?: Never true Do you have trouble paying for medicines?: No Do you have trouble getting transportation to medical appointments?: No Do you have trouble paying your heating and electricity bill?: No Do you have trouble taking care of your child, family member or friend?: No Do you have trouble with day-to-day activities such as bathing, preparing meals, shopping, managing finances, etc.?: No Are you currently unemployed and looking for a job?: No Are you interested in more education?: No Please select the resources that you would like help with: None Currently or been in a relationship where the following occur: No concerns reported THRIVE Score: 0 AUDIT C Alcohol Use Questionnaire (AUDIT-C) 1. How often do you have a drink containing alcohol?: Never Total Score: 0 Score Reviewed/Action Taken: No JAMES-7 AMB Questionnaire JAMES-7 Date JAMES - 7 assessed: 09/21/24 Feeling nervous, anxious, or on edge: 1 = Several days Not being able to stop or control worryin = Nearly every day Worrying too much about different things: 3 = Nearly every day Trouble relaxin = Nearly every day Being so restless that it is hard to sit still: 3 = Nearly every day Becoming easily annoyed or irritable: 3 = Nearly every day Feeling afraid as if something awful might happen: 1 = Several days Total JAMES-7 score (0-4 normal; 5-9 mild; 10-14 moderate; 15-21 severe): 17 Source: Developed by Drs. Chad Randall, Juhi Bunch, Manjeet Gooden and colleagues, with an educational mayra from [facility]. Review of Systems Const All systems reviewed & are unremarkable except as noted in HPI and below Eyes Reports no additional complaints ENT Reports no additional complaints Card Denies chest pain, Denies leg edema and Denies lightheadedness Resp Denies cough, Denies hemoptysis and Denies wheezing Denies dysuria and Denies urinary urgency Musc Reports arthralgias (left knee pain), Denies joint swelling, Reports numbness (down left leg) and Denies tingling Neuro Denies Abnormal speech present, Reports numbness (down left leg) and Denies tingling Rober/Lymph Denies easy bleeding and Denies easy bruising Aller/Immun Denies wheezing Physical exam (Primary Care) Vital Signs: Last Vital Signs Temp 98.9 F 09/21/24 14:49 Pulse 76 09/21/24 14:49 Resp 24 H 09/21/24 14:49 BP 120/92 H 09/21/24 14:49 Pulse Ox 97 09/21/24 14:49 Oxygen Delivery Method Room Air 09/21/24 14:49 BMI result Body Mass Index 27.1 Tobacco/Smoking Status: Tobacco use Status Tobacco use date assessed 09/21/24 09/21/24 14:53 Patient Tobacco Use Status Former Tobacco user 09/21/24 14:53 Tobacco use type Cigarette 09/21/24 14:53 e-Cigarette/Vaping Use Never Used 09/21/24 14:53 PHQ-9: PHQ-9 Score PHQ-9: Total score 24 09/22/24 17:29 Depression Screening Interpretation: Positive Thrive Assessment: Date of Thrive Assessment Date Thrive assessed 09/21/24 09/21/24 14:53 Currently or been in a relationship where the following occur: No concerns reported Const General: healthy appearing, no acute distress, alert and awake Nutritional Appearance: well nourished Orientation/consciousness: oriented to person, oriented to place and oriented to time [facility] Ears: external ears normal General nose exam: Normal external nose present Eyes Conjunctivae: conjunctivae normal Sclerae: sclerae normal Pupils: Equal, round and reactive pupils present Neck Neck: Yes no lymphadenopathy and Yes no JVD Thyroid: Thyroid normal Carotids: no bruits Resp Effort & Inspection: normal respiratory effort and not tachypneic Auscultation: no crackles, no rales, no rhonchi and no wheezes Cardio Rate: regular rate Rhythm: regular rhythm Heart sounds: no murmurs and normal S1 and S2 Skin General skin exam: no rashes or lesions noted and dry skin Neuro General: oriented to person, oriented to place and oriented to time Cranial nerves: Yes Equal, round and reactive pupils present Speech: No Abnormal speech present Gait exam (Neuro): Normal gait present Motor exam (neuro): no tremor noted Extrem Right upper extremity: full ROM Left upper extremity: full ROM Right lower extremity: full ROM; no edema Left lower extremity: full ROM and knee Details: tenderness Location: of the medial joint line; no edema Psych Mental Status: mental status grossly normal Speech and movement: Normal speech and movement present Affect: normal affect Attitude: cooperative Thought process: Normal thought process present Results Reviewed Results Reviewed: Laboratory Tests 09/21/24 16:04 WBC 6.4 RBC 4.16 L Hgb 11.9 L Hct 36.7 L MCV 88.2 MCH 28.6 RDW 13.2 Plt Count 244 Sodium 144 Potassium 4.3 Chloride 108 Carbon Dioxide 29 Anion Gap 11 L BUN 16 Creatinine 0.66 Estimated GFR > 60 Random Glucose 76 Fasting Glucose 79 Estimat Average Glucose 100 Hemoglobin A1c % 5.1 Uric Acid 3.3 Calcium 10.1 AST 33 H ALT 17 Alkaline Phosphatase 65 Coding Level of Care Code Est Pt Level 3 (05388) Diagnoses Chronic pain of left knee M25.562; G89.29 Chronicity: chronic Time Spent (min) 29 Assessment & Plan Assessment & Plan (1) Left knee pain: Code(s): M25.562 - Pain in left knee Category: Medical Qualifiers: Chronicity: chronic Qualified Code(s): M25.562 - Pain in left knee; G89.29 - Other chronic pain Plan Acute and chronic left knee pain. +pain to medial aspect of knee with palpation. No labs since 2022. Sent the patient for left xray and labs to further evaluate and to decide treatment plan. Left knee xray shows small joint effusion. Osteoarthritis of the left knee as described Meloxicam 15 mg ordered daily along with Prednisone tapered. Contact office if pain is not resolving or worsening Orders: Orders Complete Blood Count Auto Diff 09/21/24 I10 - Essential (primary) hypertension, K21.9 - Gastro-esophageal reflux disease without esophagitis, K76.0 - Fatty (change of) liver, not elsewhere classified Uric Acid 09/21/24 I10 - Essential (primary) hypertension, K21.9 - Gastro-esophageal reflux disease without esophagitis, K76.0 - Fatty (change of) liver, not elsewhere classified, M25.562 - Pain in left knee Comprehensive Met. Panel 09/21/24 I10 - Essential (primary) hypertension, K21.9 - Gastro-esophageal reflux disease without esophagitis, K76.0 - Fatty (change of) liver, not elsewhere classified XR knee LT 3V 09/21/24 M25.562 - Pain in left knee Medications: New prednisone see taper instructions take 4 tabs x2 days, then 3 tabs x 2 days, then 1 tab x 2 days =20 tabs for 8 days 10 mg PO DIRECTED 20 tabs 0RF meloxicam 15 mg PO DAILY 30 tabs 1RF
== END 2024-09-21 15:51 | disposition home or self-care (01) ==
LOC: HO.HMCH 14:17
PROVIDERS: PCP Internal Medicine
DX: M25.562 Pain in left knee (principal); G89.29 Other chronic pain

== ENCOUNTER 2024-09-21 14:17 | Outpatient (REF) | payer OTHER, SELFPAY ==
--- NOTE | ~2024-09-21 | XR_ITS ---
EXAMINATION: XR KNEE 3 VIEWS LEFT HISTORY: M25.562 - Pain in left knee COMPARISON: Comparison is made with the prior examination dated 05/18/2015. FINDINGS: Three views of the left knee are submitted. Osseous mineralization is normal. There is no fracture or dislocation. There is moderate osteoarthritis of the patellofemoral compartment and mild osteoarthritis of the lateral compartment, with joint space narrowing and osteophyte formation. There is a small joint effusion. XR/XR knee LT 3V IMPRESSION: Small joint effusion. Osteoarthritis of the left knee as described. Electronically signed by: Chad Nguyen MD 09/22/2024 07:33 AM EDT
--- OUTSIDE RECORDS SUMMARY | 2024-09-21 15:44 | XMS_ITS | Clinical Summary ---
Author Organization [facility] [employer] [facility] Facility Address [address] [place] [address], [place] [address] Care Team Providers Care Relay Tester Helper Name Role Phone Meka Pena MD Primary Care Provider [phone] Allergies Active Allergy Reactions Criticality Noted Date [...] patient's age to complete this topic Insurance [facility] Medicaid [facility] Medicaid Care Teams Relay Tester Helper Relationship Specialty Start Date End Date Meka Pena MD [address] [place] [address] PCP - General Internal Medicine 12/11/21
--- OUTSIDE RECORDS SUMMARY | 2024-09-21 15:44 | XMS_ITS | Encounter Summary ---
Author Organization [employer] Address [address] [place] [address] 7t [place] [address] Care Team Providers Care Bedspring Assembler Name Role Phone Unavailable Primary Care Provider Unavailabl e Encounter Details Date Type Department Care Team (Latest Contact Info) Description 06/15/2019 Abstract [facility] CONVERSIONS Dental, Provider, DDS Social History Tobacco [...]
--- OUTSIDE RECORDS SUMMARY | 2024-09-21 15:44 | XMS_ITS | Encounter Summary ---
Author Organization [employer] Address [address] [place] [address] 7t [place] [address] Care Team Providers Care Retread Technician Name Role Phone Unavailable Primary Care Provider Unavailabl e Encounter Details Date Type Department Care Team (Latest Contact Info) Description 03/12/2022 Abstract [facility] CONVERSIONS Dental, Provider, DDS Social History [...]
--- OUTSIDE RECORDS SUMMARY | 2024-09-21 15:44 | XMS_ITS | Clinical Summary ---
Author Organization [employer] Address [address] [facility] 7t [place] [address] Care Team Providers Care Spray Machine Tender Name Role Phone Unavailable Primary Care Provider [...] Active beta carotene (vitamin A) 3 MG (00355 UT) capsule Take by mouth in the [...] Description 07/25/2024 9:00 AM EDT Office Visit [facility] OPTOMETRY [address] [place] [address], [place] [address] Elliott, Lianna, OD Presbyopia of both eyes [...] Most Recently Relevant to Health Maintenance Insurance [facility] STANDARD [facility] ACO DENTAL-[facility] MEDICAID STAND ADULT
[2024-09-21 16:08] LABS: MANUAL DIFF FLAG NO
[2024-09-21 17:00] LABS: Appearance Urine Clear; Color Urine Yellow; Glucose Urine UA Negative (Negative); Leukocyte Esterase Urine Negative (Negative); Nitrite Urine Negative (Negative); Specific Gravity - Urine <= 1.005 (1.005-1.025); Urine Blood Negative (Negative); Urine Ketones Negative (Negative); Urine Protein Negative (Neg-Trace)
[2024-09-21 17:03] LABS: Basophils Percent Auto 0.5 % (0-2); Eosinophils Absolute Auto 0.3 X10*3/uL (0.0-0.4); Eosinophils Percent Auto 5.3 % (0-4); Hematocrit 36.7 % (37.0-47.0); Hemoglobin 11.9 g/dl (12.0-16.0); Imm Gran Abs Auto 0.01 X10*3/uL (0.00-0.03); Imm Gran Pct Auto 0.2 % (0.0-0.4); Lymphocytes Percent Auto 30.9 % (20-40); Mean Corpuscular HGB Conc 32.4 g/dl (31.0-35.0); Mean Corpuscular Hemoglobin 28.6 pg (27.0-33.0); Mean Corpuscular Volume 88.2 fL (80.0-98.0); Mean Platelet Volume 10.9 fL (9.4-12.3); Monocytes Absolute Auto 0.5 X10*3/uL (0.1-1.2); Monocytes Percent Auto 7.5 % (2-11); Neutrophils Absolute Auto 3.6 x10*3/uL (2.0-8.3); Neutrophils Percent Auto 55.6 % (45-73); Platelet Count 244 X10*3/uL (160-400); Red Blood Count 4.16 X10*6/uL (4.20-5.50); Red Cell Distribution Width 13.2 % (11.0-16.0); White Blood Count 6.4 X10*3/uL (4.8-10.8)
[2024-09-21 17:09] LABS: Estimated Average Glucose 100 mg/dL; Hemoglobin A1C 99.0776 umol/L; Hemoglobin A1c % 5.1 % (<6.0); Total Hemoglobin (HGBA1C) 3116.9085 umol/L
[2024-09-21 17:33] LABS: Alanine Aminotransferase 17 U/L (0-31); Albumin Level 4.3 g/dL (3.5-5.0); Alkaline Phosphatase 65 U/L (39-117); Anion Gap 11 (12-20); Aspartate Amino Transferase 33 U/L (5-31); Bilirubin Total 0.2 mg/dL (0.0-1.0); Blood Urea Nitrogen 16 mg/dL (9-16); Calcium 10.1 mg/dL (8.4-10.2); Carbon Dioxide 29 mmol/L (22-29); Chloride 108 mmol/L (96-108); Cholesterol 173 mg/dL (<200); Estimated Glomerular Filt Rate > 60; Glucose Random 76 mg/dL (60-115); HDL Cholesterol 62 mg/dL (>40); Iron 67 mcg/dL (30-160); LDL Cholesterol Calculated 97 mg/dL (<100); Percent Iron Saturation 21 % (15-50); Potassium 4.3 mmol/L (3.3-5.1); Sodium 144 mmol/L (135-145); Total Iron Binding Capacity 314 mcg/dL (228-428); Total Protein 7.8 g/dL (6.5-8.0); Triglycerides 71 mg/dL (<150); Unsaturated Iron Binding 247 ug/dL
[2024-09-21 17:34] LABS: Alanine Aminotransferase 13 U/L (0-31); Albumin Level 4.4 g/dL (3.5-5.0); Alkaline Phosphatase 65 U/L (39-117); Anion Gap 9 (12-20); Aspartate Amino Transferase 27 U/L (5-31); Bilirubin Total 0.2 mg/dL (0.0-1.0); Blood Urea Nitrogen 16 mg/dL (9-16); C Reactive Protein 0.23 mg/dL (< or = 0.50); Calcium 10.1 mg/dL (8.4-10.2); Carbon Dioxide 31 mmol/L (22-29); Chloride 108 mmol/L (96-108); Cholesterol 174 mg/dL (<200); Estimated Glomerular Filt Rate > 60; Glucose Fasting 79 mg/dL (60-99); Glucose Random 78 mg/dL (60-115); HDL Cholesterol 62 mg/dL (>40); Iron 57 mcg/dL (30-160); LDL Cholesterol Calculated 98 mg/dL (<100); Percent Iron Saturation 18 % (15-50); Sodium 144 mmol/L (135-145); Total Iron Binding Capacity 317 mcg/dL (228-428); Total Protein 7.6 g/dL (6.5-8.0); Triglycerides 72 mg/dL (<150); Unsaturated Iron Binding 260 ug/dL
[2024-09-21 17:50] LABS: Ferritin 50 ng/mL (10-250); TSH reflex Free T4 0.49 uIU/mL (0.32-4.0); Vitamin D 25-OH Total 45.2 ng/mL (>30)
[2024-09-21 17:57] LABS: Insulin 4 uU/mL (2-29)
[2024-09-21 17:58] LABS: Folate 14.3 ng/mL (> or = 4.0); Vitamin B12 1831 pg/mL (200-900)
[2024-09-21 20:20] LABS: Uric Acid 3.3 mg/dL (2.4-5.7)
[2024-09-25 21:24] LABS: Zinc 70 mcg/dL (60-130)
[2024-09-26 01:33] LABS: Vitamin A 46 mcg/dL (38-98)
[2024-09-26 16:09] LABS: Vitamin B1 12 nmol/L (8-30)
== END 2024-09-21 14:18 | disposition home or self-care (01) ==
LOC: HO.LAB 14:17
PROVIDERS: Physician Assistant Surgical; PCP Internal Medicine
DX: Z00.00 Encounter for general adult medical examination without abnormal findings (principal); M25.562 Pain in left knee; G89.29 Other chronic pain; M17.12 Unilateral primary osteoarthritis, left knee; E50.9 Vitamin A deficiency, unspecified; E21.3 Hyperparathyroidism, unspecified; I10 Essential (primary) hypertension; D64.9 Anemia, unspecified; R30.0 Dysuria; E55.9 Vitamin D deficiency, unspecified; E78.5 Hyperlipidemia, unspecified; K76.0 Fatty (change of) liver, not elsewhere classified; K21.9 Gastro-esophageal reflux disease without esophagitis; Z98.84 Bariatric surgery status; Z13.30 Encounter for screening examination for mental health and behavioral disorders, unspecified
CPT/HCPCS: 36415; 73562; 80053; 80061; 81003; 82306; 82607; 82728; 82746; 83036; 83525; 83540; 84425; 84443; 84550; 84590; 84630; 85025; 86140; 99212

== ENCOUNTER → 2024-09-21 16:10 | Outpatient (BNV) | payer OTHER, SELFPAY | PROVIDERS: PCP Internal Medicine; Visit Provider Radiology Diagnostic Radiology | DX: M25.462 Effusion, left knee (principal); M17.12 Unilateral primary osteoarthritis, left knee | CPT/HCPCS: 73562 ==

== ENCOUNTER 2024-11-29 10:28 | Outpatient (AMB) | payer OTHER, SELFPAY ==
--- NOTE | 2024-11-29 10:56 | A.OFFVIS_ITS ---
Vital Signs 11/29/24 11:07 Height 5 ft 4 in Weight 162 lb 11.218 oz BMI 27.9 BP 122/90 H Blood Pressure Location Lt brachial Position Sitting Pulse 58 Pulse Source Pulse Oximeter Pulse Oximetry (%) 98 Oxygen Delivery Method Room Air Intake Visit Reasons: +ANURADHA Intake Note: Patient presents for +ANURADHA follow up. Patient c/o of pain on LT knee and bilateral hands/fingers pain. Patient is requesting cortisone injection on LT knee for pain. Bioinformatics Computer Scientist Required: Yes Bioinformatics Computer Scientist Language: Systems Support Officer Services: Bioinformatics Computer Scientist Present Bioinformatics Computer Scientist Name: Evelin [id number] Information Interpreted: non-clinical & clinical Allergies morphine Allergy (Intermediate, Verified 11/29/24 11:05) dizzy,sick amoxicillin (AMOXICILLIN) Allergy (Mild, Verified 11/29/24 11:05) GENERALIZED SWELLING & ITCHY RASH, swelling, rash,diff. breathing Medication List - Last Reconciled 11/29/24 by Eileen Tobias MD arm brace (Wrist Brace) As directed calcium carbonate-vitamin D3 600 mg-5 mcg (200 unit) 2 tabs PO DAILY clotrimazole 1% (Antifungal (clotrimazole)) 1 appl topical BID gabapentin 800 mg PO TID 30 days multivitamin 1 tab PO DAILY HPI Comments Details: Patient is a 64-year-old female with hypertension, hyperparathyroidism, polyarticular osteoarthritis and Sjogren's syndrome who presents today for follow up Interval History: Patient last seen 05/12/24 with me - Re establishing care after last visit 11/2022 - Stopped cevimeline but sicca sx stable - c/o hand pain attributed to OA - No DMARDs Since then - Left knee pain - XRs show OA to left knee with mild effusion - NSAIDs given Today, - Still complaining of significant left knee pain today - Has been using the voltaren gel only once a day, it helps but not fully Rheumatologic History: Sjogren's syndrome. Previously on cevimeline but this was self-discontinued Initial history: Pt reports a history of chronic low back pain with sciatica. States that she has had this since 2008. Had epidural injections in the past, last one was August 2018, had been getting them since 2009. States that the injections helped a little, she was getting 3-4 injections yearly. Also reports pain in her hands and feet that is worse at night. States that she gets cramping in her hands mostly in her thumbs. States that the cramping improves when she moves her hands. Denies any joint swelling or morning stiffness. Uses Advil for her back pain and states that it helps a little bit. + dry eyes occasional Pt denies Raynauds, photosensitivity, oral or nasal ulcers, dry mouth. No history of miscarriages. No family history of RA, or thyroid disease. Aunt and cousin with SLE. Current Rheumatology Medication(s): Gabapentin 800 mg t.i.d. Diclofenac gel [facility] Medical History Ovarian mass, left Vaginal bleeding Myoma Hx of Sjogren's disease GERD (gastroesophageal reflux disease) Hyperparathyroidism Moderate recurrent major depression Morbid obesity Right shoulder pain Acquired spondylolysis of lumbar spine Dizziness Chronic fatigue Essential hypertension Chronic pain syndrome Postlaminectomy syndrome of lumbar region Sjogrens syndrome Primary osteoarthritis of hands, bilateral Fatty liver Arthritis Anxiety Depression On beta maye at home Hypertension Surgical History History of total hysterectomy Hx of bariatric surgery Hx of colonoscopy Hx of esophagogastroduodenoscopy Hx of section History of surgery History of tubal ligation Family History Father No problems noted. Mother Hypertension Bone cancer Sister Breast cancer Blind Family/Other Mental health disorder Substance use disorder Social History Housing: Apartment Are you a primary ambulatory care coordinator to a significant other at home: No Do you presently have visiting nurse or other home services: No Alcohol intake: never Patient Tobacco Use Status: Former Tobacco user Tobacco use type: Cigarette e-Cigarette/Vaping Use: Never Used Second Hand Smoke Exposure: No Advance Directives Date on File: 06/08/20 service: No Current occupational status: disabled Cognitive needs: No Hearing needs: No Vision needs: Yes Review of Systems Const Details: Review of Systems Constitutional: Denies fever, chills, weight loss ENT: Denies vision changes, eye pain or eye redness GI: Denies nausea, vomiting, diarrhea, abdominal pain, change in BM Pulm: Denies SOB, CONTRERAS, hemoptysis, wheezing Cards: Denies chest pain, palpitations Skin: Denies Raynaud's, rash, nail changes, photosensitivity, WOVEN BLIND LOOM TENDER: Denies headaches, weakness, paresthesias, recurrent falls MSK: as per HPI All other systems reviewed and are unremarkable except noted above Physical Exam Exam Exam: Vital signs reviewed Physical Examination CONSTITUITIONAL Patient alert and cooperative. Well appearing and in no apparent painful distress MSK Hands * Right Hand: Able to make a fist. No swelling or tenderness to palpation of these joints. No deformities noted. * Left Hand: Able to make a fist. No swelling or tenderness to palpation of these joints. No deformities noted. Knees * Right knee: Full ROM. No swelling noted. No TTP of the knee joint lie or pes anserine bursa * Left knee: Knee brace seen. Decreased ROM to extension reuben. TTP of the joint line. minimal TTP of the pes anserine bursa Vital Signs: Last Vital Signs Pulse 58 11/29/24 11:07 BP 122/90 H 11/29/24 11:07 Pulse Ox 98 11/29/24 11:07 Oxygen Delivery Method Room Air 11/29/24 11:07 BMI result Body Mass Index 27.9 Office Procedures AMB Joint Injection/Aspiration Joint Injection/Aspiration Details: Procedure was explained to the patient and informed consent was obtained. ? Risks associated with the procedure were discussed with the patient including but not limited to bleeding, infection, drug reactions and reactions to the topical anesthetic. Patient made aware of signs to look out for infectious complications. The area of interest was identified and confirmed with patient. ?This was subsequently cleaned with chlorhexidine x 2. ? The area was then anesthetized using ethyl chloride spray. 40 mg Kenalog with 1 cc 1% lidocaine was injected without issue. ?Minimal to no bleeding. ?Patient tolerated procedure. Primary Site: left knee Prep: site was prepped using aseptic technique and ethochloride spray was applied Injected: 40 mg of, Kenalog, with 1 mL of and 1% plain lidocaine Approach Used: anterior Procedure: The patient tolerated the procedure well Coding 33130 - Large joint Procedure code (CPT) selection complete Office Meds lidocaine (PF) 10 mg/mL (1 %) injection solution Performing Provider: Eileen Tobias MD Performing Location: [facility] Administered by: Medina Wagner RN on 11/29/24 11:41 Dose Route Admin Location Dispensed Lot Number Expiration Date [facility] Chief Station Engineer 1 mL Infiltration 2 mL [id number] 09/01/26 71941-836-41 [place] [employer] Total Dispensed Waste 2 mL 50 % Kenalog 40 mg/mL suspension for injection Performing Provider: Eileen Tobias MD Performing Location: [facility] Administered by: Medina Wagner RN on 11/29/24 11:41 Dose Route Admin Location Dispensed Lot Number Expiration Date [facility] Chief Station Engineer 40 mg intra-articular 1 mL [id number] 10/02/25 [address]-9 L [employer] Total Dispensed Waste 1 mL 0 % Results Reviewed Results Reviewed: Laboratory Tests 10/17/22 09/21/24 08:55 16:04 WBC 6.4 RBC 4.16 L Hgb 11.9 L Hct 36.7 L Plt Count 244 ESR 11 Sodium 144 Potassium 4.3 Chloride 108 Carbon Dioxide 29 BUN 16 Creatinine 0.66 AST 33 H ALT 17 Alkaline Phosphatase 65 C-Reactive Protein 0.23 25-OH Vitamin D Total 45.2 XR Left Knee 09/2024 FINDINGS: Three views of the left knee are submitted. Osseous mineralization is normal. There is no fracture or dislocation. There is moderate osteoarthritis of the patellofemoral compartment and mild osteoarthritis of the lateral compartment, with joint space narrowing and osteophyte formation. There is a small joint effusion. IMPRESSION: Small joint effusion. Osteoarthritis of the left knee as described. Assessment & Plan Assessment & Plan (1) Osteoarthritis of hands, bilateral: Code(s): M19.041 - Primary osteoarthritis, right hand; M19.042 - Primary osteoarthritis, left hand Category: Medical Qualifiers: Osteoarthritis type: primary Qualified Code(s): M19.041 - Primary osteoarthritis, right hand; M19.042 - Primary osteoarthritis, left hand Plan: #Primary OA of bilateral hands Continue topical diclofenac up to 4 times a day as well as copper gloves. Plan - Diclofenac gel 1% 4 times a day - RTC 6 months (2) Sjogrens syndrome: Code(s): M35.00 - Sjogren syndrome, unspecified Category: Medical Qualifiers: Sjogren's organ involvement: keratoconjunctivitis Qualified Code(s): M35.01 - Sicca syndrome with keratoconjunctivitis Plan: #Sjogren's syndrome Patient with Sjogren's syndrome and minimal sicca symptoms at this time. Cevimeline stopped by patient. We will continue to monitor (3) Primary osteoarthritis of both knees: Code(s): M17.0 - Bilateral primary osteoarthritis of knee Plan: #Knee OA s/p steroid injection to left knee PT referral Plan I spent 25 minutes reviewing the record and labs, taking a history, examining the patient, discussing the treatment plan and documenting in the medical record Orders: Orders AMB Joint Injection/Aspiration Today M17.12 - Unilateral primary osteoarthritis, left knee PT Evaluation and Treatment Today M17.0 - Bilateral primary osteoarthritis of knee Coding Level of Care Code Est Pt Level 3 (41459) Complex EM visit Add On G2211 Diagnoses Primary osteoarthritis of both hands M19.041; M19.042 Osteoarthritis type: primary Sjogren's syndrome with keratoconjunctivitis sicca M35.01 Sjogren's organ involvement: keratoconjunctivitis Primary osteoarthritis of both knees M17.0 CPT Codes Coding - 30040 Large joint: 67005 - Large joint ([id number])
[2024-11-29 11:07] VITALS: BP 122/90; PULSE 58; O2SAT 98; BMI 27.9
--- OUTSIDE RECORDS SUMMARY | 2024-11-29 11:27 | XMS_ITS | Clinical Summary ---
Author Organization [facility] Facility Address [address] [place] [address], [place] [address] Care Team Providers Care Assistant Store Manager Name Role Phone Meka Pena MD Primary Care Provider [phone] Allergies Active Allergy Reactions Criticality Noted Date [...] Cancer Screening: Sigmoidoscopy 2009 Influenza Vaccine (#1) 2025 Hepatitis B Vaccine Aged Out No longe r eligible based on patient's age to complete this topic Insurance [facility] Medicaid [facility] Medicaid Care Teams Assistant Store Manager Relationship Specialty Start Date End Date Meka Pena MD [address] [place] [address] PCP - General Internal Medicine 12/11/21
--- OUTSIDE RECORDS SUMMARY | 2024-11-29 11:27 | XMS_ITS | Clinical Summary ---
Author Organization [employer] Address [address] [place] [address] Care Team Providers Care Coal Gasification Technician Name Role Phone Unavailable Primary Care [...] Active beta carotene (vitamin A) 3 MG (09729 UT) capsule Take by mouth in the [...] Date Dental plaque 11/26/2022 Dental caries 11/26/2022 Immunizations Immunization Administration Dates Next Due Influenza [...] 2024 03/07/2022, 07/23/2021, 09/28/2020, Additional history exists Influenza Vaccine (#1) 2025 , 06/09/2023, 05/16/2019, Additional history exists Tobacco Screening 06/21/2025 06/21/2024 DTaP/Tdap/Td Vaccines (2 - Td or Tdap) 06/15/2034 06/15/2024, 04/19/2007 HIB Vaccines Aged Out No longer eligi [...] Most Recently Relevant to Health Maintenance Insurance [facility] STANDARD [facility] DENT[facility] MEDICAID STAND ADULT
== END 2024-11-29 11:47 | disposition home or self-care (01) ==
LOC: HO.RHE 10:29
PROVIDERS: PCP Internal Medicine; Visit Provider Student in an Organized Health Care Education/Training Program
DX: M19.041 Primary osteoarthritis, right hand (principal); M19.042 Primary osteoarthritis, left hand; M35.01 Sjogren syndrome with keratoconjunctivitis; M17.0 Bilateral primary osteoarthritis of knee; M17.12 Unilateral primary osteoarthritis, left knee
CPT/HCPCS: 20610; 99213

== ENCOUNTER → 2024-11-29 10:28 | Outpatient (BNVA) | payer OTHER, SELFPAY | PROVIDERS: PCP Internal Medicine; Visit Provider Student in an Organized Health Care Education/Training Program | DX: M19.041 Primary osteoarthritis, right hand (principal); M19.042 Primary osteoarthritis, left hand; M17.12 Unilateral primary osteoarthritis, left knee; M17.11 Unilateral primary osteoarthritis, right knee | CPT/HCPCS: 20610; 99212; J2003; J3300 ==

== ENCOUNTER 2024-11-30 11:40 | Outpatient (AMB) | payer OTHER, SELFPAY ==
--- NOTE | 2024-11-30 11:43 | A.OFFVIS_ITS ---
VS Expanded 11/30/24 11:57 BP 149/74 H Blood Pressure Location Rt brachial Blood Pressure Position Sitting Pulse 86 Pulse Source Pulse Oximeter Temp 97.1 F Temperature Source Temporal Artery Scan Pulse Oximetry 98 Oxygen Delivery Method Room Air Height 5 ft 4 in Weight 157 lb 12.8 oz BMI 27.1 Body Fat % 25.9 Body Fat Mass 40.8 Fat Free Mass 116.8 Visceral Fat Rating 7.0 Body Water % 52.3 Body Water Mass 82.4 Muscle Mass/Score 110.8 Basal Metabolic Rate/Score 1,534 Intake Visit Reasons: (OV) PO LSG 05/22/21 Park Activities Coordinator Required: Yes Park Activities Coordinator Services: Park Activities Coordinator Present Park Activities Coordinator Name: hospital cmi Allergies morphine Allergy (Intermediate, Verified 11/30/24 11:46) dizzy,sick amoxicillin (AMOXICILLIN) Allergy (Mild, Verified 11/30/24 11:46) GENERALIZED SWELLING & ITCHY RASH, swelling, rash,diff. breathing Medication List - Last Reconciled 11/30/24 by LAI Castanon arm brace (Wrist Brace) As directed calcium carbonate-vitamin D3 600 mg-5 mcg (200 unit) 2 tabs PO DAILY clotrimazole 1% (Antifungal (clotrimazole)) 1 appl topical BID gabapentin 800 mg PO TID 30 days multivitamin 1 tab PO DAILY HPI Comments Details: Patient is a pleasant 64-year-old female who returns to the office today in follow-up. She is approximately 3 years 6 months post sleeve gastrectomy performed on 05/22/2021. Weight today is 157.8 lb with a BMI of 27.1. She states that since her last visit, she has developed worsening arthritis of her left knee. She is wearing a neoprene brace. She saw rheumatology and underwent injection yesterday with unknown results yet. She has been referred to Orth[facility] but has not yet been seen. The arthritis of the left knee has inhibited her ability to walk for exercise. She does have a stationary bike but has not yet used it. She additionally is having difficulty with excess skin of the abdomen. This is causing a rash underneath the abdominal fold. She would have a rash 2-3 times per month. Treated with [id number] creams and powders. She states that when it happens it is quite painful and itchy as well as malodorous. She is requiring 2-3 times per day washing of the area during the winter months and 4-5 times per day during the summer months. At her last visit in July, she was prescribed topical antifungal cream. She states that over the last several months, she has had to use the antifungal cream 2-3 times per month with resolution of the rash. No rash currently. She was using the cream daily, but this was explained that she will only need to use it as needed. meal plan: Orgain 2 scoops in 8 oz almond milk, 8 am bhutanese yogurt or another shake with 1 scoop, noon 2 pm protein bar, fit crunch meal with 6 forks protein and 6 forks veg Exercise plan: none in the last 3 months stationary bike at home previously 3 days per week exercising walking outside or elliptical at home 450-550 faith per day PFSH Medical History Ovarian mass, left Vaginal bleeding Myoma Hx of Sjogren's disease GERD (gastroesophageal reflux disease) Hyperparathyroidism Moderate recurrent major depression Morbid obesity Right shoulder pain Acquired spondylolysis of lumbar spine Dizziness Chronic fatigue Essential hypertension Chronic pain syndrome Postlaminectomy syndrome of lumbar region Sjogrens syndrome Primary osteoarthritis of hands, bilateral Fatty liver Arthritis Anxiety Depression On beta maye at home Hypertension Surgical History History of total hysterectomy Hx of bariatric surgery Hx of colonoscopy Hx of esophagogastroduodenoscopy Hx of section History of surgery History of tubal ligation Family History Father No problems noted. Mother Hypertension Bone cancer Sister Breast cancer Blind Family/Other Mental health disorder Substance use disorder Social History Housing: Apartment Are you a primary clinical care manager to a significant other at home: No Do you presently have visiting nurse or other home services: No Alcohol intake: never Patient Tobacco Use Status: Former Tobacco user Tobacco use type: Cigarette e-Cigarette/Vaping Use: Never Used Second Hand Smoke Exposure: No Advance Directives Date on File: 06/08/20 service: No Current occupational status: disabled Cognitive needs: No Hearing needs: No Vision needs: Yes Physical Exam Const General: healthy appearing and no acute distress Resp Effort & Inspection: normal respiratory effort Auscultation: clear to auscultation bilaterally Cardio Rate: regular rate Rhythm: regular rhythm GI Auscultation: normal bowel sounds Skin Other: Grade 2 abdominal pannus without active dermatitis Extrem General: Yes normal to inspection Quality Reporting (2019) Adult ([facility] 138/06/25/68) Smoking risk assessment performed?: Yes Patient Tobacco Use Status: Former Tobacco user Assessment & Plan Assessment & Plan (1) S/P laparoscopic sleeve gastrectomy: Code(s): Z98.84 - Bariatric surgery status Category: Surgical Plan: Patient added protein bar without communication. We will adjust her meal plan accordingly: Orgain 1 scoop in 8 oz almond milk, 8 am bhutanese yogurt, noon 2 pm protein bar, fit crunch meal with 6 forks protein and 6 forks veg Encouraged to resume exercise. Discussed discount to the [facility]. She is not sure she wants to join the [facility]. She does have a stationary bike at home and has been encouraged to use this. She just got injection to her left knee and states that she was told it should improve over the next 3 days. She will resume her walking routine and as mentioned above encouraged to use her stationary bike with a goal of burning 300 calories per day. Encouraged to follow the meal plan, text weights and text with any questions or concerns. We will have her return to the office in approximately 2 months (2) Excess skin: Code(s): L98.7 - Excessive and redundant skin and subcutaneous tissue Category: Medical Plan: Patient has been using the clotrimazole cream daily. Explained to her that that is not how it is used, just use when she gets a rash. Given her weight loss, she has developed excess skin of her abdomen. As a result she has had recurrent dermatitis. We will monitor frequency now that she will use her cream appropriately. She likely would benefit from medically necessary skin removal surgery. We will follow-up her next visit Medications: Refilled clotrimazole 1% (Antifungal (clotrimazole)) 1 appl topical BID 45 grams 3RF
[2024-11-30 11:57] VITALS: BP 149/74; PULSE 86; TEMP 36.2; O2SAT 98; BMI 27.1
--- OUTSIDE RECORDS SUMMARY | 2024-11-30 12:40 | XMS_ITS | Clinical Summary ---
Author Organization [employer] Address [address] [facility] [facility] [address] [place] [address] Care Team Providers Care Rotary Engine Assembler Name Role Phone Unavailable Primary Care [...] Active beta carotene (vitamin A) 3 MG (03138 UT) capsule Take by mouth in the [...] Most Recently Relevant to Health Maintenance Insurance [facility] STANDARD [facility]
--- OUTSIDE RECORDS SUMMARY | 2024-11-30 12:40 | XMS_ITS | Clinical Summary ---
Author Organization [facility] [employer] [facility] Facility Address [address] [place] [address], [place] [address] Care Team Providers Care Strong Nitric Operator Name Role Phone Meka Pena MD Primary Care Provider [phone] Allergies Active Allergy Reactions Criticality Noted Date [...] patient's age to complete this topic Insurance * Guarantor: Abida Nava Account Type Relation to Patient Date of Phone Billing Address Personal/Family Self [address] [address] [facility] Medicaid [facility] Medicaid Care Teams Strong Nitric Operator Relationship Specialty Start Date End Date Meka Pena MD [address] [place] [address] PCP - General Internal Medicine 12/11/21
== END 2024-11-30 12:19 | disposition home or self-care (01) ==
LOC: HO.HBS 11:41
PROVIDERS: PCP Internal Medicine; Visit Provider Physician Assistant Surgical
DX: L98.7 Excessive and redundant skin and subcutaneous tissue (principal); Z98.84 Bariatric surgery status
CPT/HCPCS: 99213

== ENCOUNTER → 2024-11-30 11:40 | Outpatient (BNVA) | payer OTHER, SELFPAY | PROVIDERS: PCP Internal Medicine; Visit Provider Physician Assistant Surgical | DX: Z98.84 Bariatric surgery status (principal); L98.7 Excessive and redundant skin and subcutaneous tissue | CPT/HCPCS: 99212 ==

== ENCOUNTER 2025-02-16 15:23 | Outpatient (AMB) | payer OTHER, SELFPAY ==
--- NOTE | 2025-02-16 15:58 | A.OFFVIS_ITS ---
Vital Signs 02/16/25 16:04 Height 5 ft 4 in Weight 160 lb 11.472 oz BMI 27.6 BP 130/82 Blood Pressure Location Lt brachial Position Sitting Pulse 89 Pulse Source Pulse Oximeter Pulse Oximetry (%) 98 Oxygen Delivery Method Room Air Intake Visit Reasons: neck pain f/u Intake Note: Patient presents for neck pain follow up. Sand Conditioner Machine Required: Yes Sand Conditioner Machine Language: Medical Dosimetrist Services: Sand Conditioner Machine Present Sand Conditioner Machine Name: [id number] Information Interpreted: non-clinical & clinical Allergies morphine Allergy (Intermediate, Verified 02/16/25 16:04) dizzy,sick amoxicillin (AMOXICILLIN) Allergy (Mild, Verified 02/16/25 16:04) GENERALIZED SWELLING & ITCHY RASH, swelling, rash,diff. breathing HPI Comments Details: Patient is a 64-year-old female with hypertension, hyperparathyroidism, polyarticular osteoarthritis and Sjogren's syndrome who presents today for follow up Interval History: Patient last seen 11/29/24 with me - on gabapentin 400mg tid - Still complaining of significant left knee pain today - Has been using the voltaren gel only once a day, it helps but not fully - Received steroid injection of the left knee - Referred to PT Today - On gabapentin 400mg TID - Left knee continues to have pain - steroid injection did not have any benefit - Fell a few days ago and her pain has been further aggravated Rheumatologic History: Sjogren's syndrome. Previously on cevimeline but this was self-discontinued Initial history: Pt reports a history of chronic low back pain with sciatica. States that she has had this since 2008. Had epidural injections in the past, last one was August 2018, had been getting them since 2009. States that the injections helped a little, she was getting 3-4 injections yearly. Also reports pain in her hands and feet that is worse at night. States that she gets cramping in her hands mostly in her thumbs. States that the cramping improves when she moves her hands. Denies any joint swelling or morning stiffness. Uses Advil for her back pain and states that it helps a little bit. + dry eyes occasional Pt denies Raynauds, photosensitivity, oral or nasal ulcers, dry mouth. No history of miscarriages. No family history of RA, or thyroid disease. Aunt and cousin with SLE. Current Rheumatology Medication(s): Gabapentin 800 mg t.i.d. Diclofenac gel PFSH Medical History Ovarian mass, left Vaginal bleeding Myoma Hx of Sjogren's disease GERD (gastroesophageal reflux disease) Hyperparathyroidism Moderate recurrent major depression Morbid obesity Right shoulder pain Acquired spondylolysis of lumbar spine Dizziness Chronic fatigue Essential hypertension Chronic pain syndrome Postlaminectomy syndrome of lumbar region Sjogrens syndrome Primary osteoarthritis of hands, bilateral Fatty liver Arthritis Anxiety Depression On beta maye at home Hypertension Surgical History History of total hysterectomy Hx of bariatric surgery Hx of colonoscopy Hx of esophagogastroduodenoscopy Hx of section History of surgery History of tubal ligation Family History Father No problems noted. Mother Hypertension Bone cancer Sister Breast cancer Blind Family/Other Mental health disorder Substance use disorder Social History Housing: Apartment Are you a primary director of career resources to a significant other at home: No Do you presently have visiting nurse or other home services: No Alcohol intake: never Patient Tobacco Use Status: Former Tobacco user Tobacco use type: Cigarette e-Cigarette/Vaping Use: Never Used Second Hand Smoke Exposure: No Advance Directives Date on File: 06/08/20 service: No Current occupational status: disabled Cognitive needs: No Hearing needs: No Vision needs: Yes Review of Systems Const Details: Review of Systems Constitutional: Denies fever, chills, weight loss ENT: Denies vision changes, eye pain or eye redness, dental caries, dry mouth GI: Denies nausea, vomiting, diarrhea, abdominal pain, change in BM Pulm: Denies SOB, CONTRERAS, hemoptysis, wheezing Cards: Denies chest pain, palpitations Skin: Denies Raynaud's, rash, nail changes, photosensitivity, ADULT DAY CARE WORKER: Denies headaches, weakness, paresthesias, recurrent falls MSK: as per HPI All other systems reviewed and are unremarkable except noted above Physical Exam Exam Exam: Vital signs reviewed Physical Examination CONSTITUITIONAL Patient alert and cooperative. Well appearing and in no apparent painful distress MSK Hands * Right Hand: Able to make a fist. No swelling or tenderness to palpation of the MCPs, PIPs or DIPs. * Left Hand: Able to make a fist. No swelling or tenderness to palpation of the MCPs, PIPs or DIPs. * Herbedens and Bouchards nodes noted bilaterally Wrists * Right Wrist: Full ROM to flexion and extension. No swelling or TTP * Left Wrist: Full ROM to flexion and extension. No swelling or TTP Elbows * Right Elbow: Full ROM. No swelling or TTP. No TTP of the medial epicondyle. No TTP of the lateral epicondyle * Left Elbow: Full ROM. No swelling or TTP. No TTP of the medial epicondyle. No TTP of the lateral epicondyle Shoulders * Right shoulder: Full ROM. No swelling noted. No TTP of the AC joint. No TTP of the subacromial bursa. No TTP of the posterior shoulder * Left shoulder: Full ROM. No swelling noted. No TTP of the AC joint. No TTP of the subacromial bursa. No TTP of the posterior shoulder Knees * Right knee: No swelling noted. TTP of the knee joint line. No TTP of pes anserine bursa * Left knee: No swelling noted. TTP of the knee joint line. No TTP of pes anserine bursa. * Crepitations felt bilaterally * Ecchymosis noted (2/2 fall) Ankles * Right ankle: Good ankle dorsiflexion and plantar flexion. No swelling. No TTP of the ankle joint * Left ankle: Good ankle dorsiflexion and plantar flexion. No swelling. No TTP of the ankle joint Feet * Right foot: Negative squeeze test * Left foot: Negative squeeze test Tender points? * No tenderness to palpation of the bilateral trapezius, supraspinatus, anterior costochondral junctions, bilateral suboccipital muscle insertions SKIN No rashes Vital Signs: Last Vital Signs Pulse 89 02/16/25 16:04 BP 130/82 02/16/25 16:04 Pulse Ox 98 02/16/25 16:04 Oxygen Delivery Method Room Air 02/16/25 16:04 BMI result Body Mass Index 27.6 Results Reviewed Results Reviewed: Laboratory Tests 10/17/22 09/21/24 08:55 16:04 WBC 6.4 RBC 4.16 L Hgb 11.9 L Hct 36.7 L Plt Count 244 ESR 11 Sodium 144 Potassium 4.3 Chloride 108 Carbon Dioxide 29 BUN 16 Creatinine 0.66 AST 33 H ALT 17 Alkaline Phosphatase 65 C-Reactive Protein 0.23 25-OH Vitamin D Total 45.2 XR Left Knee 09/2024 FINDINGS: Three views of the left knee are submitted. Osseous mineralization is normal. There is no fracture or dislocation. There is moderate osteoarthritis of the patellofemoral compartment and mild osteoarthritis of the lateral compartment, with joint space narrowing and osteophyte formation. There is a small joint effusion. IMPRESSION: Small joint effusion. Osteoarthritis of the left knee as described. Assessment & Plan Assessment & Plan (1) Osteoarthritis of hands, bilateral: Code(s): M19.041 - Primary osteoarthritis, right hand; M19.042 - Primary osteoarthritis, left hand Category: Medical Qualifiers: Osteoarthritis type: primary Qualified Code(s): M19.041 - Primary os teoarthritis, right hand; M19.042 - Primary osteoarthritis, left hand Plan: #Primary OA of bilateral hands Continue topical diclofenac up to 4 times a day as well as copper gloves. Plan - Diclofenac gel 1% 4 times a day - RTC 6 months (2) Sjogrens syndrome: Code(s): M35.00 - Sjogren syndrome, unspecified Category: Medical Qualifiers: Sjogren's organ involvement: keratoconjunctivitis Qualified Code(s): M35.01 - Sicca syndrome with keratoconjunctivitis Plan: #Sjogren's syndrome Patient with Sjogren's syndrome and minimal sicca symptoms at this time. Cevimeline stopped by patient. We will continue to monitor (3) Primary osteoarthritis of both knees: Code(s): M17.0 - Bilateral primary osteoarthritis of knee Plan: #Knee OA Failed steroid injection Plan - PA for gel one injections Plan I spent 25 minutes reviewing the record and labs, taking a history, examining the patient, discussing the treatment plan and documenting in the medical record Coding Level of Care Code Est Pt Level 3 (62568) Complex EM visit Add On G2211 Diagnoses Primary osteoarthritis of both hands M19.041; M19.042 Osteoarthritis type: primary Sjogren's syndrome with keratoconjunctivitis sicca M35.01 Sjogren's organ involvement: keratoconjunctivitis Primary osteoarthritis of both knees M17.0
[2025-02-16 16:04] VITALS: BP 130/82; PULSE 89; O2SAT 98; BMI 27.6
--- OUTSIDE RECORDS SUMMARY | 2025-02-16 19:12 | XMS_ITS | Encounter Summary ---
Author Organization [employer] Address [address] [place] [address] [address] [place] [address] Care Team Providers Care Environmental Test Technician Name Role Phone Unavailable Primary Care Provider Unavailabl e Encounter Details Date Type Department Care Team (Latest Contact Info) Description 03/12/2022 Abstract [facility] CONVERSIONS Dental, Provider, DDS Social [...]
--- OUTSIDE RECORDS SUMMARY | 2025-02-16 19:12 | XMS_ITS | Encounter Summary ---
Author Organization [employer] Address [address] [place] [address] [address] [place] [address] Care Team Providers Care Rabbit Dresser Name Role Phone Unavailable Primary Care Provider Unavailabl e Encounter Details Date Type Department Care Team (Latest Contact Info) Description 06/15/2019 Abstract [facility] CONVERSIONS Dental, Provider, DDS Social History [...]
--- OUTSIDE RECORDS SUMMARY | 2025-02-16 19:12 | XMS_ITS | Clinical Summary ---
Author Organization [employer] Address [address] [place] [address] [address] [place] [address] Care Team Providers Care Welcome Desk Agent Name Role Phone Unavailable Primary Care Provider [...] Active beta carotene (vitamin A) 3 MG (82737 UT) capsule Take by mouth in the [...] Prophylaxis 05/30/2023 11/26/2022 COVID-19 Vaccine ( season) 2025 03/07/2022, 07/23/2021, 09/28/2020, Additional history exists Influenza [...] Most Recently Relevant to Health Maintenance Insurance [facility] STANDARD [facility] STAND ADULT
== END 2025-02-16 16:30 | disposition home or self-care (01) ==
LOC: HO.RHES 15:24
PROVIDERS: PCP Internal Medicine; Visit Provider Student in an Organized Health Care Education/Training Program
DX: M19.041 Primary osteoarthritis, right hand (principal); M19.042 Primary osteoarthritis, left hand; M35.01 Sjogren syndrome with keratoconjunctivitis; M17.0 Bilateral primary osteoarthritis of knee
CPT/HCPCS: 99213

== ENCOUNTER → 2025-02-16 15:23 | Outpatient (BNVA) | payer OTHER, SELFPAY | PROVIDERS: PCP Internal Medicine; Visit Provider Student in an Organized Health Care Education/Training Program | DX: M35.01 Sjogren syndrome with keratoconjunctivitis (principal); M19.041 Primary osteoarthritis, right hand; M19.042 Primary osteoarthritis, left hand; M17.0 Bilateral primary osteoarthritis of knee | CPT/HCPCS: 99212 ==

== ENCOUNTER 2025-03-02 12:07 | Outpatient (AMB) | payer OTHER, SELFPAY ==
--- NOTE | 2025-03-02 12:42 | A.OFFVIS_ITS ---
Vital Signs 03/02/25 12:44 Height 5 ft 4 in Weight 158 lb 8.198 oz BMI 27.2 BP 138/80 Blood Pressure Location Lt brachial Position Sitting Pulse 68 Pulse Source Pulse Oximeter Pulse Oximetry (%) 98 Oxygen Delivery Method Room Air Intake Visit Reasons: gel-one injection Intake Note: Patient presents for gel one injection today. Merchandising Stock Associate Required: Yes Merchandising Stock Associate Language: Supply Chain Intern Services: Merchandising Stock Associate Present Merchandising Stock Associate Name: Sourav [id number] Information Interpreted: non-clinical & clinical Accompanied by: Self / Same As Patient Allergies morphine Allergy (Intermediate, Verified 03/02/25 12:50) dizzy,sick amoxicillin (AMOXICILLIN) Allergy (Mild, Verified 03/02/25 12:50) GENERALIZED SWELLING & ITCHY RASH, swelling, rash,diff. breathing HPI Comments Details: Patient is a 64-year-old female with hypertension, hyperparathyroidism, polyarticular osteoarthritis and Sjogren's syndrome who presents today for follow up Interval History: Patient last seen 02/16/25 with me - On gabapentin 400mg TID - Left knee continues to have pain - steroid injection did not have any benefit - Fell a few days ago and her pain has been further aggravated Today - On gabapentin 400mg TID - here today for durolane injections Rheumatologic History: Sjogren's syndrome. Previously on cevimeline but this was self-discontinued Initial history: Pt reports a history of chronic low back pain with sciatica. States that she has had this since 2008. Had epidural injections in the past, last one was August 2018, had been getting them since 2009. States that the injections helped a little, she was getting 3-4 injections yearly. Also reports pain in her hands and feet that is worse at night. States that she gets cramping in her hands mostly in her thumbs. States that the cramping improves when she moves her hands. Denies any joint swelling or morning stiffness. Uses Advil for her back pain and states that it helps a little bit. + dry eyes occasional Pt denies Raynauds, photosensitivity, oral or nasal ulcers, dry mouth. No history of miscarriages. No family history of RA, or thyroid disease. Aunt and cousin with SLE. Current Rheumatology Medication(s): Gabapentin 800 mg t.i.d. Diclofenac gel [facility] Medical History Ovarian mass, left Vaginal bleeding Myoma Hx of Sjogren's disease GERD (gastroesophageal reflux disease) Hyperparathyroidism Moderate recurrent major depression Morbid obesity Right shoulder pain Acquired spondylolysis of lumbar spine Dizziness Chronic fatigue Essential hypertension Chronic pain syndrome Postlaminectomy syndrome of lumbar region Sjogrens syndrome Primary osteoarthritis of hands, bilateral Fatty liver Arthritis Anxiety Depression On beta maye at home Hypertension Surgical History History of total hysterectomy Hx of bariatric surgery Hx of colonoscopy Hx of esophagogastroduodenoscopy Hx of section History of surgery History of tubal ligation Family History Father No problems noted. Mother Hypertension Bone cancer Sister Breast cancer Blind Family/Other Mental health disorder Substance use disorder Social History Housing: Apartment Are you a primary patient centered care specialist to a significant other at home: No Do you presently have visiting nurse or other home services: No Alcohol intake: never Patient Tobacco Use Status: Former Tobacco user Tobacco use type: Cigarette e-Cigarette/Vaping Use: Never Used Second Hand Smoke Exposure: No Advance Directives Date on File: 06/08/20 service: No Current occupational status: disabled Cognitive needs: No Hearing needs: No Vision needs: Yes Review of Systems Narrative Review of Systems Constitutional: Denies fever, chills, weight loss ENT: Denies vision changes, eye pain or eye redness, dental caries, dry mouth GI: Denies nausea, vomiting, diarrhea, abdominal pain, change in BM Pulm: Denies SOB, CONTRERAS, hemoptysis, wheezing Cards: Denies chest pain, palpitations Skin: Denies Raynaud's, rash, nail changes, photosensitivity, SHEET METAL HELPER: Denies headaches, weakness, paresthesias, recurrent falls MSK: as per HPI All other systems reviewed and are unremarkable except noted above Physical Exam Exam Exam: Vital signs reviewed Physical Examination CONSTITUITIONAL Patient alert and cooperative. Well appearing and in no apparent painful distress MSK Hands * Right Hand: Able to make a fist. No swelling or tenderness to palpation of the MCPs, PIPs or DIPs. * Left Hand: Able to make a fist. No swelling or tenderness to palpation of the MCPs, PIPs or DIPs. * Herbedens and Bouchards nodes noted bilaterally Wrists * Right Wrist: Full ROM to flexion and extension. No swelling or TTP * Left Wrist: Full ROM to flexion and extension. No swelling or TTP Elbows * Right Elbow: Full ROM. No swelling or TTP. No TTP of the medial epicondyle. No TTP of the lateral epicondyle * Left Elbow: Full ROM. No swelling or TTP. No TTP of the medial epicondyle. No TTP of the lateral epicondyle Shoulders * Right shoulder: Full ROM. No swelling noted. No TTP of the AC joint. No TTP of the subacromial bursa. No TTP of the posterior shoulder * Left shoulder: Full ROM. No swelling noted. No TTP of the AC joint. No TTP of the subacromial bursa. No TTP of the posterior shoulder Knees * Right knee: No swelling noted. TTP of the knee joint line. No TTP of pes anserine bursa * Left knee: No swelling noted. TTP of the knee joint line. No TTP of pes anserine bursa. * Crepitations felt bilaterally * Ecchymosis noted (2/2 fall) Ankles * Right ankle: Good ankle dorsiflexion and plantar flexion. No swelling. No TTP of the ankle joint * Left ankle: Good ankle dorsiflexion and plantar flexion. No swelling. No TTP of the ankle joint Feet * Right foot: Negative squeeze test * Left foot: Negative squeeze test Tender points? * No tenderness to palpation of the bilateral trapezius, supraspinatus, anterior costochondral junctions, bilateral suboccipital muscle insertions SKIN No rashes Vital Signs: Last Vital Signs Pulse 68 03/02/25 12:44 BP 138/80 03/02/25 12:44 Pulse Ox 98 03/02/25 12:44 Oxygen Delivery Method Room Air 03/02/25 12:44 BMI result Body Mass Index 27.2 Office Procedures AMB Joint Injection/Aspiration Joint Injection/Aspiration Details: Procedure was explained to the patient and informed consent was obtained. ? Risks associated with the procedure were discussed with the patient including but not limited to bleeding, infection, drug reactions and reactions to the topical anesthetic. Patient made aware of signs to look out for infectious complications. The area of interest was identified and confirmed with patient. ?This was subsequently cleaned with chlorhexidine x 2. ? The area was then anesthetized using ethyl chloride spray. 3cc Gel One was injected without issue. ?Minimal to no bleeding. ?Patient tolerated procedure. Primary Site: right knee Prep: site was prepped using aseptic technique and ethochloride spray was applied Approach Used: anterior Procedure: The patient tolerated the procedure well Coding 37068 - Large joint Procedure code (CPT) selection complete AMB Joint Injection/Aspiration Joint Injection/Aspiration Details: Procedure was explained to the patient and informed consent was obtained. ? Risks associated with the procedure were discussed with the patient including but not limited to bleeding, infection, drug reactions and reactions to the topical anesthetic. Patient made aware of signs to look out for infectious complications. The area of interest was identified and confirmed with patient. ?This was subsequently cleaned with chlorhexidine x 2. ? The area was then anesthetized using ethyl chloride spray. 3cc Gel One was injected without issue. ?Minimal to no bleeding. ?Patient tolerated procedure. Primary Site: left knee Prep: site was prepped using aseptic technique and ethochloride spray was applied Approach Used: anterior Procedure: The patient tolerated the procedure well Coding 94346 - Large joint Procedure code (CPT) selection complete Office Meds Gel-One 30 mg/3 mL intra-articular syringe Performing Provider: Eileen Tobias MD Performing Location: [facility] Administered by: Rakan Carter RN on 03/02/25 14:10 Dose Route Admin Location Dispensed Lot Number Expiration Date [facility] [place] [employer] 30 mg intra-articular right knee 3 mL [id number] 09/06/26 52270-40[address] [employer] Total Dispensed Waste 3 mL 0 % Gel-One 30 mg/3 mL intra-articular syringe Performing Provider: Eileen Tobias MD Performing Location: [facility] Administered by: Rakan Carter RN on 03/02/25 14:10 Dose Route Admin Location Dispensed Lot Number Expiration Date [facility] [place] [employer] 30 mg intra-articular left knee 3 mL [id number] 09/06/26 88497-24619 [employer] Total Dispensed Waste 3 mL 0 % Results Reviewed Results Reviewed: Laboratory Tests 10/17/22 09/21/24 08:55 16:04 WBC 6.4 RBC 4.16 L Hgb 11.9 L Hct 36.7 L Plt Count 244 ESR 11 Sodium 144 Potassium 4.3 Chloride 108 Carbon Dioxide 29 BUN 16 Creatinine 0.66 AST 33 H ALT 17 Alkaline Phosphatase 65 C-Reactive Protein 0.23 25-OH Vitamin D Total 45.2 XR Left Knee 09/2024 FINDINGS: Three views of the left knee are submitted. Osseous mineralization is normal. There is no fracture or dislocation. There is moderate osteoarthritis of the patellofemoral compartment and mild osteoarthritis of the lateral compartment, with joint space narrowing and osteophyte formation. There is a small joint effusion. IMPRESSION: Small joint effusion. Osteoarthritis of the left knee as described. Assessment & Plan Assessment & Plan (1) Primary osteoarthritis of both knees: Code(s): M17.0 - Bilateral primary osteoarthritis of knee Plan: #Knee OA Patient is a 64-year-old female with polyarticular osteoarthritis and Sjogren's syndrome here today for follow up. Failed steroid injections to bilateral knees and is here today for gel 1 injections Plan - status post gel 1 injection to bilateral knees - recommend topical ice tonight and monitoring of her symptoms over the next few days - if she has any worsening of symptoms acutely we can do a steroid injection at that time - RTC 4 months (2) Sjogrens syndrome: Code(s): M35.00 - Sjogren syndrome, unspecified Category: Medical Qualifiers: Sjogren's organ involvement: keratoconjunctivitis Qualified Code(s): M35.01 - Sicca syndrome with keratoconjunctivitis Plan: #Sjogren's syndrome Patient with Sjogren's syndrome and minimal sicca symptoms at this time. Cevimeline stopped by patient. We will continue to monitor Plan I spent 25 minutes reviewing the record and labs, taking a history, examining the patient, discussing the treatment plan and documenting in the medical record Orders: Orders AMB Joint Injection/Aspiration Today M17.0 - Bilateral primary osteoarthritis of knee AMB Joint Injection/Aspiration Today M17.0 - Bilateral primary osteoarthritis of knee Coding Level of Care Code Est Pt Level 3 (56441) Diagnoses Primary osteoarthritis of both knees M17.0 Sjogren's syndrome with keratoconjunctivitis sicca M35.01 Sjogren's organ involvement: keratoconjunctivitis CPT Codes Coding - 19847 Large joint: 75494 - Large joint ([id number]) Coding - 24327 Large joint: 65637 - Large joint ([id number])
[2025-03-02 12:44] VITALS: BP 138/80; PULSE 68; O2SAT 98; BMI 27.2
--- OUTSIDE RECORDS SUMMARY | 2025-03-02 15:03 | XMS_ITS | Clinical Summary ---
Author Organization [facility] Address [address] [place] [address], [place] [address] Care Team Providers Care Tie Presser Name Role Phone Meka Pena MD Primary Care Provider [phone] Allergies Active Allergy Reactions Criticality Noted Date [...] Last Done Comments Breast Cancer Screening 1960 Colorectal Cancer Screening: Annual FOBT 2009 Colorectal Cancer Screening: Colonoscopy 2009 Colorectal Cancer Screening: Sigmoidoscopy 2009 Pneumococcal Vaccine: 50+ Ye ars (1 of 1 - PCV) 2010 Influenza Vaccine (#1) 2025 Hepatitis B Vaccine Aged Out No longe r eligible based on patient's age to complete this topic Insurance [facility] Medicaid [facility] Medicaid Care Teams Tie Presser Relationship Specialty Start Date End Date Meka Pena MD [address] [place] [address] PCP - General Internal Medicine 12/11/21
--- OUTSIDE RECORDS SUMMARY | 2025-03-02 15:03 | XMS_ITS | Encounter Summary ---
Author Organization [employer] Address [address] [place] [address] [address] [place] [address] Care Team Providers Care Corporate Strategist Name Role Phone Unavailable Primary Care Provider Unavailabl e Encounter Details Date Type Department Care Team (Latest Contact Info) Description 03/12/[address] [facility] CONVERSIONS Dental, Provider, DDS Social History [...]
--- OUTSIDE RECORDS SUMMARY | 2025-03-02 15:03 | XMS_ITS | Encounter Summary ---
Author Organization [employer] Address [address] [place] [address] [address] [place] [address] Care Team Providers Care Senior Internal Auditor Name Role Phone Unavailable Primary Care Provider Unavailabl e Encounter Details Date Type Department Care Team (Latest Contact Info) Description 06/15/2019 Abstract [facility] CONVERSIONS Dental, Provider, DDS Social History [...]
--- OUTSIDE RECORDS SUMMARY | 2025-03-02 15:03 | XMS_ITS | Clinical Summary ---
Author Organization [employer] Address [address] [place] [address] [address] [place] [address] Care Team Providers Care Automotive Electrician Name Role Phone Unavailable Primary Care Provider [...] Active beta carotene (vitamin A) 3 MG (62413 UT) capsule Take by mouth in the [...] Most Recently Relevant to Health Maintenance Insurance [facility] STANDARD [facility] STAND ADULT
== END 2025-03-02 13:14 | disposition home or self-care (01) ==
LOC: HO.RHES 12:08
PROVIDERS: PCP Internal Medicine; Visit Provider Student in an Organized Health Care Education/Training Program
DX: M17.0 Bilateral primary osteoarthritis of knee (principal); M35.01 Sjogren syndrome with keratoconjunctivitis
CPT/HCPCS: 20610; 99213

== ENCOUNTER → 2025-03-02 12:07 | Outpatient (BNVA) | payer OTHER, SELFPAY | PROVIDERS: PCP Internal Medicine; Visit Provider Student in an Organized Health Care Education/Training Program | DX: M17.0 Bilateral primary osteoarthritis of knee (principal); M35.01 Sjogren syndrome with keratoconjunctivitis; G89.4 Chronic pain syndrome | CPT/HCPCS: 20610; 99212; J7326 ==